=== PATIENT | female | born 2000 | race Caucasian/White ===

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

== ENCOUNTER 2018-07-20 09:41 | Emergency (ER) | payer OTHER ==
--- OUTSIDE RECORDS SUMMARY | 2018-07-20 09:54 | XMS REPORT ---
:2000 External Reference #:[id number] Author Organization [facility] 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 Katia Boyer MD Primary Care Physician Unavailable Payers Type Date Identification Numbers Payment Provider Subscriber Commercial Effective: Policy Number: [place] Medicaid Nasir Quinn 2017 [id number] PayID: [id number] [address] [place] [address] Medicaid Expires: 2018 Policy Number: [id number] Medicaid Nasir Quinn PayID: [id number] [address] [place] [address] Problems Date Description Provider Status Onset: 12/22/2016 Constipation Xander Curran MD Active Onset: 12/22/2016 Abdominal pain Xander Curran MD Active Onset: 12/22/2016 Vomiting, unspecified Xander Curran MD Active Onset: 04/03/2018 Dehydration Xander Curran MD Active Onset: 02/01/2018 Hemorrhage of rectum and anus Xander Curran MD Active Onset: 01/10/2018 Headache Katia Boyer MD Active Onset: 01/10/2018 Symptom of skin and integumentary tissue Katia Boyer MD Active Onset: 11/14/2017 Corns and callosities Katia Boyer MD Active Onset: 11/14/2017 Dissociative convulsions Katia Boyer MD Active Onset: 10/03/2017 Heartburn Xander Curran MD Active Onset: 10/03/2017 Irritable bowel syndrome characterized by Xander Curran MD Active constipation Onset: 04/04/2017 Gastroduodenitis Xander Curran MD Active Family History Date Family Member(s) Problem(s) Comments General Liver Cancer great maternal grandmother Father Seizure Disorder Father Blood Disorder Mother Diabetes Mellitus Type 2 Mother Asthma Mother Kidney Stones First Sister Crohn's Disease Social History Type Date Description Comments Marital Status Single Lives With Mother Home Environment Lives with Mother Occupation [employer] Work Status Not Currently Working Work Status Part-Time ETOH Use Denies alcohol use Smoking Patient denies history of smoking Recreational Drug Use Denies Drug Use Allergies, Adverse Reactions, Alerts Date Description Reaction Status Severity Comments 11/27/2016 Erythromycin active throat swells 11/27/2016 Augmentin active rash 12/22/2016 Bactrim active 12/22/2016 Latex active 12/22/2016 Zithromax active Adhesives active Medications Medication Date Status Form Strength Qnty SIG Indications Ordering Provider Amitriptyline 02/01/ Active Tablets 10mg 90tab 1 tab by R10.9 Young HCL 2017 s mouth every MD Magdy day every night Miralax 02/01/ Active Packet 3350NF 90uni 1 packet by K58.1 2017 ts mouth every MD Magdy day Sleepaid 01/10/ Active Tablets 25mg 1 tab at Merlin, 2018 bedtime MD Katia Bentyl 10/03/ Active Capsules 10mg 90cap cap by mouth R10.9 Young 2018 s three times a MD Magdy day as needed for crampy abd pain Zantac 150 10/03/ Active Tablets 150mg 90tab 1 by mouth R10.9 Young Maximum 2018 s every day MD Magdy Strength Strattera 09/12/ Active Capsules 40mg 60cap 2 caps by Gagen, 2017 s mouth every 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, MS, [employer]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[employer], 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 Fluoxetine HCL 07/06/ Active Capsules 20mg 30cap 1 by mouth Merlin, (PMDD) 2016 s every day MD Katia Miralax 02/21/ Active Powder 3350NF 3Bott 3 cap by Young 2016 les mouth every MD Magdy day every morning Tri-Linyah 12/12/ Active Tablets 0.18/0.21 28tab take as Merlin, 2016 5/0.25 s directed on MD Katia mg-35 mcg pack Colace / Active Capsules 100mg 60cap 2 tab by Merlin, 0000 s mouth daily MD Erin Montalvozessánchez / Active Capsules 145mcg 90cap 1 by mouth Zane 0000 s every day , Meir, every morning Loratadine / Active Tablets 10mg 30tab 1 tab daily Merlin, s MD Katia Ra Senna / Active Tablets 8.6mg 30tab 1 tab as Merlin s needed for MD Katia constipation Tylenol / Active 500mg 2 tab po prn Unknown 0000 Clindamycin HCL 07/31/ Hx Capsules 300mg 30cap 1 tab by Merlin, 2016 s mouth every 8 MD Katia hours for 10 days Clotrimazole 07/06/ Hx Cream 1% 28gm apply to Merlin, Anti-Fungal 2016 affected area MD Katia twice a day Tylenol Extra 07/06/ Hx Tablets 500mg 60tab 1-2 tabs by Merlin, Strength 2016 - mouth every MD Katia 04/03/ hours as 2018 needed Fluoxetine HCL 05/17/ Hx Tablets 10mg 30tab 1 by mouth Merlin, 2016 - s every day MD Katia 2016 Dicyclomine HCL 04/04/ Hx Capsules 10mg 90cap 1 cap by R10Steve Terrell 2016 s mouth three MD Magdy times a day as needed Dulcolax 04/04/ Hx Tablets 5mg 4tabs [address]. Xander [address] DR taken a 8pm MD Magdy the day before the procedure Peg-3350/Electr 04/04/ Hx Solution 236gm 1unit please drink R1Vijay.Bryan camara 2017 Rec s 1/2 evening MD Magdy before and drink 1/2 morning of the procedure (1 cup every 15 minutes) Citroma 04/04/ Hx Solution 1.745GM/3 1bott 1 bottle by Roscoe Terrell 2016 0ML le mouth once MD Fermin Curran 02/12/ Hx Capsules 145mcg 90cap 1 by mouth Xander 2016 s every day MD Magdy Dok 00/00/ Hx Capsules 100mg 2 PO Qam Silvanoafari, 0000 MD Carmel Ranitidine HCL / Hx Tablets 150mg 1 bid Silvanoafari, 0000 MD Carmel Ondansetron HCL / Hx Tablets 4mg 90tab every 8 hours Merlin, 0000 s as needed MD Katia Tylenol PM / Hx Tablets 500-25mg 30tab 1 tab by Merlin, Extra Strength 0000 - s mouth every MD Katia as 2018 needed OCP / Hx Unknown 0000 - 2016 Pantoprazole / Hx Tablets 20mg 1 by mouth Unknown Sodium 0000 DR bid Strattera Hx Capsules 80mg 30cap 1 tab every Merlin, 0000 - s morning MD Katia 2017 Immunizations CPT Code Status Date Vaccine Lot # [id number] Given 07/09/2018 Influenza Virus Vaccine, Quadrivalent, 36 Mos+, [id number] Given 07/06/2017 Influenza Virus Vaccine Quadrivalent Iiv4 Split [id number] Preser Free Id Vital Signs Date Vital Result Comment 07/09/2018 BP Systolic Sitting Left Arm 116 mmHg BP Diastolic Sitting Left Arm 77 mmHg Body Temperature 99.1 F Heart Rate 116 /min Respiratory Rate 20 /min Height 64 inches 5'4" Weight 150.00 lb BMI (Body Mass Index) 25.7 kg/m2 BSA (Body Surface Area) 1.73 m2 [place] body weight in kilograms 54 O2 % BldC Oximetry 99 % 05/17/2018 BP Systolic Sitting Right Arm 119 mmHg BP Diastolic Sitting Right Arm 81 mmHg Body Temperature 97.9 F Heart Rate 100 /min Respiratory Rate 12 /min Height 64 inches 5'4" Weight 149.00 lb BMI (Body Mass Index) 25.6 kg/m2 BSA (Body Surface Area) 1.73 m2 [place] body weight in kilograms 54 O2 % BldC Oximetry 100 % 04/03/2018 BP Systolic Sitting Left Arm 110 mmHg BP Diastolic Sitting Left Arm 80 mmHg Heart Rate 90 /min Respiratory Rate 16 /min Height 64 inches 5'4" Weight 138.00 lb BMI (Body Mass Index) 23.7 kg/m2 BSA (Body Surface Area) 1.67 m2 [place] body weight in kilograms 54 O2 % BldC Oximetry 98 % 02/01/2018 BP Systolic Sitting Left Arm 103 mmHg BP Diastolic Sitting Left Arm 78 mmHg Heart Rate 96 /min Respiratory Rate 18 /min Height 64 inches 5'4" Weight 131.00 lb BMI (Body Mass Index) 22.5 kg/m2 BSA (Body Surface Area) 1.63 m2 [place] body weight in kilograms 54 Height Percentile 45 % Weight Percentile 55th 01/10/2018 BP Systolic Sitting Left Arm 104 mmHg BP Diastolic Sitting Left Arm 72 mmHg Heart Rate 96 /min Respiratory Rate 16 /min Height 64 inches 5'4" Weight 131.00 lb BMI (Body Mass Index) 22.5 kg/m2 BSA (Body Surface Area) 1.63 m2 [place] body weight in kilograms 54 Height Percentile 45 % Weight Percentile 55th 11/14/2017 BP Systolic Sitting Left Arm 113 mmHg BP Diastolic Sitting Left Arm 80 mmHg Heart Rate 101 /min Height 64 inches 5'4" Weight 132.00 lb BMI (Body Mass Index) 22.7 kg/m2 BSA (Body Surface Area) 1.64 m2 [place] body weight in kilograms 54 Height Percentile 45 % Weight Percentile 57th 10/03/2017 BP Systolic Sitting Left Arm 120 mmHg BP Diastolic Sitting Left Arm 70 mmHg Heart Rate 102 /min Respiratory Rate 16 /min Height 64 inches 5'4" Weight 132.00 lb BMI (Body Mass Index) 22.7 kg/m2 BSA (Body Surface Area) 1.64 m2 [place] body weight in kilograms 54 Height Percentile 45 % Weight Percentile 58th 07/31/2017 BP Systolic Sitting Left Arm 120 mmHg BP Diastolic Sitting Left Arm 80 mmHg Body Temperature 98.9 F Heart Rate 90 /min Respiratory Rate 16 /min Height 64 inches 5'4" Weight 137.00 lb BMI (Body Mass Index) 23.5 kg/m2 BSA (Body Surface Area) 1.67 m2 [place] body weight in kilograms 54 Height Percentile 45 % Weight Percentile 66th 07/06/2017 BP Systolic Sitting Right Arm 113 mmHg BP Diastolic Sitting Right Arm 74 mmHg Heart Rate 109 /min Height 64 inches 5'4" Weight 132.00 lb BMI (Body Mass Index) 22.7 kg/m2 BSA (Body Surface Area) 1.64 m2 [place] body weight in kilograms 54 Height Percentile 46 % Weight Percentile 59th 04/04/2017 BP Systolic Sitting Left Arm 118 mmHg BP Diastolic Sitting Left Arm 78 mmHg Heart Rate 89 /min Respiratory Rate 16 /min Height 64 inches 5'4" Weight 136.00 lb BMI (Body Mass Index) 23.3 kg/m2 BSA (Body Surface Area) 1.66 m2 [place] body weight in kilograms 54 12/22/2016 BP Systolic Sitting Left Arm 110 mmHg BP Diastolic Sitting Left Arm 80 mmHg Heart Rate 76 /min Respiratory Rate 16 /min Height 64 inches 5'4" Weight 138.00 lb BMI (Body Mass Index) 23.7 kg/m2 BSA (Body Surface Area) 1.67 m2 [place] body weight in kilograms 54 Height Percentile 46 % Weight Percentile 70th 12/18/2016 BP Systolic 106 mmHg BP Diastolic 73 mmHg Heart Rate 101 /min Height 63.75 inches 5'3.75" Weight 136.00 lb BMI (Body Mass Index) 23.5 kg/m2 BSA (Body Surface Area) 1.66 m2 Height Percentile 42 % Weight Percentile 67th 11/27/2016 BP Systolic 126 mmHg BP Diastolic 88 mmHg Body Temperature 98.2 F Heart Rate 105 /min Height 63.75 inches 5'3.75" Weight 137.00 lb BMI (Body Mass Index) 23.7 kg/m2 BSA (Body Surface Area) 1.66 m2 [place] body weight in kilograms 54 Height Percentile 42 % Weight Percentile 69th Results Test Date Test Result H/L Range Note CBC W/Automated Diff 06/15/2018 White Blood Count 7.1 K/uL 3.1-10.7 1 Red Blood Count 4.28 M/uL 3.90-5.40 1 Hemoglobin 13.1 gm/dL 11.6-15.8 1 Hematocrit 39.2 % 36.0-46.1 1 Mean Cell Volume 91.6 fl 80.9-99.0 1 Mean Corpuscular HGB 30.6 pg 25.9-32.7 1 Mean Corpuscular HGB Conc 33.4 g/dL 30.8-34.3 1 Platelet Count 313 K/uL 155-360 1 Red Cell Distri Width SD 41.9 fl 3-47 1 Red Cell Distri Width %CV 12.8 % 11.7-14.4 1 Mean Platelet Volume 10.0 fL 8.9-12.4 1 Neut% 48.4 % 28.0-68.0 1 Lymph % 42.9 % High 20.0-42.0 1 Floyd % 5.2 % 4.3-13.2 1 Eo% 3.1 % 0.0-6.6 1 Bas% 0.4 % 0.0-1.1 1 Neut# 3.42 K/uL 1.8-7.0 1 Lymph # 3.04 K/uL 1.0-4.0 1 Floyd # 0.37 K/uL 0.3-0.9 1 Eos # 0.22 K/uL 0.0-0.5 1 Baso # 0.03 K/uL 0.0-0.1 1 Ua RFX Micro & Culture II 06/15/2018 Urine Color YELLOW Yellow 1 Urine Clarity CLEAR Clear 1 Urine Glucose - Dipstick NEGATIVE mg/dL Negative 1 Urine Bilirubin - Dipstick NEGATIVE Negative 1 Urine Ketone NEGATIVE mg/dL Negative 1 Urine Specific Griffith >=1.030 1.010-1.030 1 Urine Blood NEGATIVE Negative 1 Urine PH 6.0 Low 6.5-7.5 1 Urine Protein - Dipstick TRACE mg/dL Negative 1 Urine Urobilinogen - Dipstick 0.2 E.U./dL 0.2-1.0 1 Urine Nitrite - Dipstick NEGATIVE Negative 1 Urine Leuk Esterase NEGATIVE Negative 1 Source: URINE, CLEAN CAT <SEE NOTE> 1, 2 CBS W/Automated Diff 04/03/2018 White Blood Count 5.1 K/uL 3.1-10.7 3 Red Blood Count 3.89 M/uL Low 3.90-5.40 3 Hemoglobin 11.6 gm/dL 11.6-15.8 3 Hematocrit 35.6 % Low 36.0-46.1 3 Mean Cell Volume 91.5 fl 80.9-99.0 3 Mean Corpuscular HGB 29.8 pg 25.9-32.7 3 Mean Corpuscular HGB Conc 32.6 g/dL 30.8-34.3 3 Platelet Count 278 K/uL 155-360 3 Red Cell Distri Width SD 42.5 fl 3-47 3 Red Cell Distri Width %CV 13.0 % 11.7-14.4 3 Mean Platelet Volume 10.0 fL 8.9-12.4 3 Neut% 44.3 % 28.0-68.0 3 Lymph % 46.7 % High 20.0-42.0 3 Floyd % 7.6 % 4.3-13.2 3 Eo% 0.6 % 0.0-6.6 3 Bas% 0.8 % 0.0-1.1 3 Neut# 2.28 K/uL 1.8-7.0 3 Lymph # 2.40 K/uL 1.0-4.0 3 Floyd # 0.39 K/uL 0.3-0.9 3 Eos # 0.03 K/uL 0.0-0.5 3 Baso # 0.04 K/uL 0.0-0.1 3 CBS W/Automated Diff 11/23/2017 White Blood Count 6.6 K/uL 3.1-10.7 4 Red Blood Count 4.51 M/uL 3.90-5.40 4 Hemoglobin 13.7 gm/dL 11.6-15.8 4 Hematocrit 40.9 % 36.0-46.1 4 Mean Cell Volume 90.7 fl 80.9-99.0 4 Mean Corpuscular HGB 30.4 pg 25.9-32.7 4 Mean Corpuscular HGB Conc 33.5 g/dL 30.8-34.3 4 Platelet Count 279 K/uL 155-360 4 Red Cell Distri Width SD 44.2 fl 3-47 4 Red Cell Distri Width %CV 13.7 % 11.7-14.4 4 Mean Platelet Volume 10.4 fL 8.9-12.4 4 Neut% 59.5 % 28.0-68.0 4 Lymph % 32.1 % 20.0-42.0 4 Floyd % 7.3 % 4.3-13.2 4 Eo% 0.6 % 0.0-6.6 4 Bas% 0.5 % 0.0-1.1 4 Neut# 3.94 K/uL 1.8-7.0 4 Lymph # 2.12 K/uL 1.0-4.0 4 Floyd # 0.48 K/uL 0.3-0.9 4 Eos # 0.04 K/uL 0.0-0.5 4 Baso # 0.03 K/uL 0.0-0.1 4 Chlamydia/GC Mickie, Urine 11/23/2017 Chlamydia Trachomatis,Ur Negative Negative 4 -PCR Neisseria Gonorrhoeae,Ur -PCR Negative Negative 4, 5 Ua RFX Micro & Culture II 11/23/2017 Urine Color YELLOW Yellow 4 Urine Clarity CLEAR Clear 4 Urine Glucose - Dipstick NEGATIVE mg/dL Negative 4 Urine Bilirubin - Dipstick NEGATIVE Negative 4 Urine Ketone NEGATIVE mg/dL Negative 4 Urine Specific Griffith <=1.005 Low 1.010-1.030 4 Urine Blood NEGATIVE Negative 4 Urine PH 6.0 Low 6.5-7.5 4 Urine Protein - Dipstick NEGATIVE mg/dL Negative 4 Urine Urobilinogen - Dipstick 0.2 E.U./dL 0.2-1.0 4 Urine Nitrite - Dipstick NEGATIVE Negative 4 Urine Leuk Esterase NEGATIVE Negative 4 Source: URINE, CLEAN CAT <SEE NOTE> 4, 6 Ua Routine 05/03/2017 Urine Color YELLOW Yellow 7 Urine Clarity CLEAR Clear 7 Urine Glucose - Dipstick NEGATIVE mg/dL Negative 7 Urine Bilirubin - Dipstick NEGATIVE Negative 7 Urine Ketone NEGATIVE mg/dL Negative 7 Urine Specific Griffith 1.010 1.010-1.030 7 Urine Blood SMALL Negative 7 Urine PH 6.5 6.5-7.5 7 Urine Protein - Dipstick NEGATIVE mg/dL Negative 7 Urine Urobilinogen - Dipstick 0.2 E.U./dL 0.2-1.0 7 Urine Nitrite - Dipstick NEGATIVE Negative 7 Urine Leuk Esterase TRACE Negative 7 Urine RBC NONE SEEN rbc/hpf 0-2 7 Urine WBC 0-2 wbc/hpf 0-7 7 Urine Epithelial Cells FEW /lpf None Seen 7 Urine Bacteria NONE SEEN None Seen 7 Source: URINE, CLEAN CAT <SEE NOTE> 7, 8 Chlamydia/GC Mickie, Urine 05/03/2017 Chlamydia Trachomatis,Ur Negative Negative 7 -Mickie Neisseria Gonorrhoeae,Ur -Mickie Negative Negative 7, 9 CBS W/Automated Diff 05/03/2017 White Blood Count 6.8 K/uL 3.1-10.7 7 Red Blood Count 4.17 M/uL 3.90-5.40 7 Hemoglobin 12.8 gm/dL 11.6-15.8 7 Hematocrit 37.5 % 36.0-46.1 7 Mean Cell Volume 89.9 fl 80.9-99.0 7 Mean Corpuscular HGB 30.7 pg 25.9-32.7 7 Mean Corpuscular HGB Conc 34.1 g/dL 30.8-34.3 7 Platelet Count 290 K/uL 150-400 7 Red Cell Distri Width SD 40.9 fl 3-47 7 Red Cell Distri Width %CV 12.8 % 11.7-14.4 7 Mean Platelet Volume 10.6 fL 8.9-12.4 7 Neut% 61.2 % 28.0-68.0 7 Lymph % 30.9 % 20.0-42.0 7 Floyd % 6.0 % 4.3-13.2 7 Eo% 1.3 % 0.0-6.6 7 Bas% 0.6 % 0.0-1.1 7 Neut# 4.18 K/uL 1.8-7.0 7 Lymph # 2.11 K/uL 1.0-4.0 7 Floyd # 0.41 K/uL 0.3-0.9 7 Eos # 0.09 K/uL 0.0-0.5 7 Baso # 0.04 K/uL 0.0-0.1 7 Laboratory test 05/01/2017 Urine HCG (Qualitative) NEGATIVE Negative 10 , 11 finding Celiac Disease Comp 12/25/2016 Immunoglobulin A 348 mg/dL 87-352 12 PNL Antigliadin Abs, IgG 2 units 0-19 12, 13 Antigliadin Abs, IgA 6 units 0-19 12, 14 Endomysial IgA Antibody Negative Negative 12 t-Transglutaminase IgA <2 U/mL 0-3 12, 15 t-Transglutaminase IgG <2 U/mL 0-5 12, 16 TSH W/Free T4 RFX 12/25/2016 Thyroid Stim Hormone 1.39 uIU/mL 0.30-4.20 12 Reflex add FT3? Y 12 Reflex add FT4? Y 12 Laboratory test finding 12/25/2016 C1 Esterase Inhibitor 70 %meanno . 12 , 17 Function C1 Esterase Inhibitor 25 mg/dL 21-39 12 Complement C4, Serum 31 mg/dL 14-44 12 Laboratory test finding 12/25/2016 Sedimentation Rate 13 mm/hr 0-20 12, 18 CRP (High Sensitivity) 12/25/2016 C-Reactive Protein,Cardiac 0.87 mg/L < 3.0 12 Reflex add FT3? Y 12 Reflex add FT4? Y 12 Laboratory test 12/23/2016 Porphobilinogen,QN,Random Urin 0.0 mg/L 0.0- 2.0 19, 20 finding Vitamin B12 And 11/27/2016 Vitamin B12 363 pg/mL 193-986 21 Folate Folic Acid 32.3 ng/mL High 3.1-17.5 21, 22 Laboratory test finding 11/27/2016 HCG,Serum (Qualitative) NEGATIVE ( Negative) 21 Ua Routine 11/27/2016 Urine Color YELLOW Yellow 21 Urine Clarity CLEAR Clear 21 Urine Glucose - Dipstick NEGATIVE mg/dL Negative 21 Urine Bilirubin - Dipstick NEGATIVE Negative 21 Urine Ketone NEGATIVE mg/dL Negative 21 Urine Specific Griffith <=1.005 Low 1.010-1.030 21 Urine Blood TRACE Negative 21 Urine PH 6.0 Low 6.5-7.5 21 Urine Protein - Dipstick NEGATIVE mg/dL Negative 21 Urine Urobilinogen - Dipstick 0.2 E.U./dL 0.2-1.0 21 Urine Nitrite - Dipstick NEGATIVE Negative 21 Urine Leuk Esterase TRACE Negative 21 Urine RBC 0-2 rbc/hpf 0-2 21 Urine WBC 0-2 wbc/hpf 0-7 21 Urine Epithelial Cells FEW /lpf None Seen 21 Urine Bacteria FEW None Seen 21 Urine Amorph Sediment VERY FEW Negative 21 Source: URINE, CLEAN CAT <SEE NOTE> 21, 23 Drugs Of Abuse-Urine Screen 7 11/27/2016 Amphetamines (Urine) Negative 21 Barbiturates (Urine) Negative 21 Benzodiazepines (Urine) Negative 21 Cannabinoids (Urine) Negative 21 Cocaine Metabolite (Urine) Negative 21 Methadone (Urine) Negative 21 Opiates (Urine) Negative 21 Urine Cutoffs * 21, 24 Laboratory test finding 11/27/2016 Magnesium 2.4 mg/dL 1.8-2.4 21 Glycohemoglobin A1c 11/27/2016 Glycohemoglobin (A1c) 5.0 % 4.2-6.3 21, 25 eAG 97 mg/dL 21 Laboratory test finding 11/27/2016 Thyroid Stim Hormone 2.21 uIU/mL 0.30- 4.20 21 Free T4 0.88 ng/dL 0.76-1.46 21 CBS W/Automated Diff 11/27/2016 White Blood Count 5.4 K/uL 3.1-10.7 21 Red Blood Count 4.65 M/uL 3.90-5.40 21 Hemoglobin 13.7 gm/dL 11.6-15.8 21 Hematocrit 41.4 % 36.0-46.1 21 Mean Cell Volume 89.0 fl 80.9-99.0 21 Mean Corpuscular HGB 29.5 pg 25.9-32.7 21 Mean Corpuscular HGB Conc 33.1 g/dL 30.8-34.3 21 Platelet Count 343 K/uL 150-400 21 Red Cell Distri Width SD 40.8 fl 3-47 21 Red Cell Distri Width %CV 12.7 % 11.7-14.4 21 Mean Platelet Volume 11.1 fL 8.9-12.4 21 Neut% 48.5 % 28.0-68.0 21 Lymph % 42.8 % High 20.0-42.0 21 Floyd % 7.2 % 4.3-13.2 21 Eo% 0.9 % 0.0-6.6 21 Bas% 0.6 % 0.0-1.1 21 Neut# 2.61 K/uL 1.8-7.0 21 Lymph # 2.30 K/uL 1.0-4.0 21 Floyd # 0.39 K/uL 0.3-0.9 21 Eos # 0.05 K/uL 0.0-0.5 21 Baso # 0.03 K/uL 0.0-0.1 21 Comprehensive Metabolic Panel 11/27/2016 Glucose 83 mg/dL 74-106 21 BUN 10 mg/dL 7-18 21 Creatinine 0.7 mg/dL 0.6-1.3 21 Glom Filtration Rate, Estimate >60 mL/min >60 21 If >60 mL/min >60 21, 26 BUN/Creat 14.2 ratio 21 Sodium 140 mmol/L 136-145 21 Potassium 4.2 mmol/L 3.5-5.1 21 Chloride 106 mmol/L 98-107 21 Carbon Dioxide 25 mmol/L 21-32 21 Anion Gap 9 mEq/L 8-16 21 Calcium 9.3 mg/dL 8.5-10.1 21 Total Protein 8.3 g/dL High 6.4-8.2 21 Albumin 4.0 g/dL 3.4-5.0 21 Globulin 4.3 g/dL 1.9-4.3 21 Alb/Glob 0.9 ratio 21 Bilirubin,Total 0.2 mg/dL 0.2-1.0 21 Sgot/Ast 22 U/L 15-37 21 SGPT/Alt 25 U/L 12-78 21 Alkaline Phosphatase 82 U/L 45-117 21 1 IBS, CONSTIPATION, ABD PAIN 2 URINE, CLEAN CATCH 3 SENT BY , DEHYDRATION, ANOREXIA 4 IBS SHAKING EPISODE, URI 5 A negative result for either C. trachomatis and/or N. gonorrhoeae does not preclued an infection because results are dependent on adequate specimen collection, absence of inhibitors, and sufficient DNA to be detected. 6 URINE, CLEAN CATCH 7 HAD COLONOSCOPY 05/01, VERY LETHARGIC,LEFT ABD PAIN 8 URINE, CLEAN CATCH 9 A negative result for either C. trachomatis and/or N. gonorrhoeae does not preclued an infection because results are dependent on adequate specimen collection, absence of inhibitors, and sufficient DNA to be detected. 10 COLONOSCOPY RESCHEDULED 11 FIRST MORNING SPECIMENS GENERALLY CONTAIN THE HIGHEST CONCENTRATION OF HCG AND ARE RECOMMENDED FOR EARLY DETECTION OF . Method: Quidel QuickVue One-Step Immunoassay 12 K59.00 R10.9 13 Negative 0 - 19 Weak Positive 20 - 30 Moderate to Strong Positive >30 14 Negative 0 - 19 Weak Positive 20 - 30 Moderate to Strong Positive >30 15 Negative 0 - 3 Weak Positive 4 - 10 Positive >10 Tissue Transglutaminase (tTG) has been identified as the endomysial antigen. Studies have demonstr- ated that endomysial IgA antibodies have over 99% specificity for gluten sensitive enteropathy. 16 Negative 0 - 5 Weak Positive 6 - 9 Positive >9 17 INFCE Result Units: %mean normal Abnormal <41 Equivocal 41 - 67 Normal >67 Performed at: [address] [id number] Technical Support Director: Jaci Wood MD, Phone: [phone] Performed at: [address] [id number] Technical Support Director: Red Fernández MD, Phone: [phone] 18 Method: Sediplast Modified Westergren 19 E59.00 R10.9 20 This test was developed and its performance characteristics determined by [facility]. It has not been cleared or approved by the Food and Drug Administration. Performed at: [address] [id number] Technical Support Director: Red Fernández MD, Phone: [phone] 21 R11.10 R10.9 22 Result confirmed by repeat analysis. 23 URINE, CLEAN CATCH 24 URINE SPECIMENS ARE SCREENED AT THE LISTED CUTOFFS DRUG CLASS INITIAL TEST LEVEL Amphetamines 1000 ng/mL Barbiturates 200 ng/mL Benzodiazepines 200 ng/mL Cannabinoids 50 ng/mL Cocaine Metabolite 300 ng/mL Methadone 300 ng/mL Opiates 300 ng/mL Any PRESUMPTIVE POSITIVE findings are UNCONFIRMED. Confirmatory testing is suggested if findings are unexpected. Please contact laboratory if confirmatory testing is desired. SPECIMENS ARE HELD FOR 72 HOURS. 25 Elevated levels of HbA1c suggest the need for more aggressive treatment of glycemia. The [place] [employer] recommends that a primary goal of therapy should be a HbA1c of <7% and that physicians should re-evaluate the treatment regimen in patients with HbA1c values consistently >8%. 26 Note: Persistent reduction for 3 months or more in an eGFR <60 mL/min/1.73 m2 defines CKD. Patients with eGFR values >/=60 mL/min/1.73 m2 may also have CKD if evidence of persistent proteinuria is present. The original MDRD equation for estimated GFR is not valid for patients less than 18 years of age. Additional information may be found at www.kdoqi.org. 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 R19.7 Z23 Office Visit 05/17/2018 9:30a [place], [address] R19.7 [employer]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C, CNM F34.81 E86.0 Office Visit 04/03/2018 9:15[place] [address] E86.0 K58.1 R10.9 R12 Office Visit 02/01/2018 9:45[place] [address] K58.1 R10.9 R12 K62.5 Office Visit 01/10/2018 12:00p [place] [address] R23.9 K58.1 R51 Office Visit 11/14/2017 11:40a [place] [address] K58.1 F44.5 L84 Office Visit 10/03/2017 9:45[place] [address] K58.1 R10.9 R12 Office Visit 07/31/2017 10:40a [place] [address] H66.91 Office Visit 07/06/2017 2:40p [place] [address] K59.00 F34.81 Z23 B35.4 Office Visit 04/04/2017 3:30[place] [address] R10.9 K59.00 K29.70 Office Visit 12/22/2016 2:45[place] [address] K59.00 R11.10 R10.9 Office Visit 12/18/2016 10:40a [place] [address] F44.5 R10.11 R11.10 K59.00 Office Visit 11/27/2016 1:20p [place] [address] F44.5 R10.11 R11.10 Plan of Care Future Appointment(s):07/24/2018 9:00 am - Angelina Chawla MS, ARNOLD, CAITLIN at Primary Care Kfznek2908/13/2018 10:45 am - Meir Degroot MD at GI09/17/2018 10:30 am - Angelina Chawla MS, ARNOLD, BJM at Primary Care Jjlnof6407/09/2018 - Angelina Chawla MS, ARNOLD, CNMK92.1 MelenaComments:-- Hemoccult done - [id number] Diarrhea, unspecifiedComments:--Stop the Linzess, take 1/2 dose of the Miralax, stop colace. I explained that we may have to adjust medications to get formed stools; however, I do not want her to get constipated due to her - -Encourage liquids, especially Gatorade--Diet increase fiber bananas, oatmeal, whole wheat bread, brown rice--Keep GI OV with DR Degroot --On last OV, I discussed the importance of hydration and not taking so many stool medications to develop diarrhea. I reinforced this again, discussing possible dehydration and electrolyte imbalance.--I advised Patient to use baby wipes and Desitin in rectal area to avoidskin break down-- Patient is to monitor response of medication change and [id number] Encounter for immunizationComments:-- Patient received Flu vaccination after consentAllFollow up:RTO in 2 weeks for F/U Keep GI OV in August
[2018-07-20 10:27] VITALS: BP 120/70
--- NOTE | 2018-07-20 11:02 | UC ---
General HPI - HPI Summary HPI Summary: 18 yo without PMH with Sore throat, nasal discharge and congestion, and itchy rash since yesterday, startin on neck and shoulders and spreading this morning to the rest of body. Palms and soles spared. Aurora feverish/chills but no quantified fever. No meds taken. - History of Current Complaint Chief Complaint: UCSkin Stated Complaint: RASH Time Seen by Provider: 07/20/18 10:48 Hx Obtained From: Patient Hx Last Menstrual Period: "end of last month" Onset/Duration: Sudden Onset, Lasting Days Onset Severity: Mild Pain Intensity: 5 - Allergy/Home Medications Allergies/Adverse Reactions: Allergies Allergy/AdvReac Type Severity Reaction Status Date / Time amoxicillin Allergy Rash Verified 07/20/18 10:21 azithromycin Allergy Rash Verified 07/20/18 10:21 bacitracin Allergy Rash Verified 07/20/18 10:21 erythromycin base Allergy Difficulty Verified 07/20/18 10:21 Breathing PMH/Surg Hx/FS Hx/Imm Hx Previously Healthy: Yes - Surgical History Surgical History: Yes Surgery Procedure, Year, and Place: WISDOM TEETH EXTRACTION - Family History Known Family History: Positive: None, Other - No throat related family history. - Social History Alcohol Use: None Substance Use Type: None Smoking Status (MU): Never Smoked Tobacco Household Exposure Type: Cigarettes - Immunization History Most Recent Tetanus Shot: UTD Vaccination Up to Date: Yes Review of Systems All Other Systems Reviewed And Are Negative: Yes Skin: Positive: Rash ENT: Positive: Sore Throat, Nasal Discharge, Sinus Congestion Respiratory: Positive: Cough Physical Exam - Summary Physical Exam Summary: polymorphic blanching rash on neck, inferior eyelids, trunk and extremities with escoriation nguyen. No herald patch found. No involvement of soles and palms. Triage Information Reviewed: Yes Appearance: Well-Appearing, No Pain Distress, Well-Nourished Vital Signs: Initial Vital Signs Temp 97.7 F 07/20/18 10:23 Pulse 101 07/20/18 10:23 Resp 15 07/20/18 10:23 BP 120/70 07/20/18 10:23 Pulse Ox 99 07/20/18 10:23 Vital Signs Reviewed: Yes Eyes: Positive: Conjunctiva Clear ENT: Positive: Hearing grossly normal, Pharynx normal, TMs normal Neck: Positive: Supple, Nontender Respiratory: Positive: Chest non-tender, Lungs clear, Normal breath sounds, No respiratory distress Cardiovascular: Positive: RRR, No Murmur, Pulses Normal, Brisk Capillary Refill Abdomen Description: Positive: Nontender Bowel Sounds: Positive: Present Musculoskeletal: Positive: Strength Intact, ROM Intact Course/Dx - Course Course Of Treatment: patient found to have urticarial rash, start short course of prednisone QAM as prescribed, moisturizer on skin. URI continue supportive care and oral hydration, f/u PCP in 1 week - Differential Dx - Multi-Symptom Provider Diagnoses: urticaria. Viral URI Discharge - Sign-Out/Discharge Documenting (check all that apply): Patient Departure All imaging exams completed and their final reports reviewed: No Studies - Discharge Plan Condition: Stable Disposition: HOME Patient Education Materials: Urticaria (ED) Referrals: Katia Boyer MD [Primary Care Provider] - - Billing Disposition and Condition Condition: STABLE Disposition: Home
== END 2018-07-20 11:09 | disposition home or self-care (01) ==
LOC: UCCORT 09:41
DX: J06.9 Acute upper respiratory infection, unspecified (principal); L50.9 Urticaria, unspecified; Z88.0 Allergy status to penicillin
CPT/HCPCS: 87651; 99212; G0463

== ENCOUNTER 2018-12-02 11:51 | Emergency (ER) | payer OTHER ==
[2018-12-02 12:27] VITALS: BP 118/64
[2018-12-02] MEDS ORDERED: Tetracaine 0.5% OPTH.SOL 4 ML* 1 DROP BTL RIGHT EYE ONE (14:10)
[2018-12-02] MEDS ORDERED: Fluorescein Sodium TOPICAL* 1 MG TEST STRIP OPHTHALMIC ONE (14:10)
--- NOTE | 2018-12-02 14:11 | UC ---
Eye Complaint HPI - HPI Summary HPI Summary: Pt states she has right eye pain, but after several discussions with her, it is not the globe of her right eye, it is more the right upper orbit and just below right lower eyelid. She does not wear contact lenses, nor has she felt she has anything in her eye. She has had URI symptoms with nasal drainage over the past 3 days which is when this started. Denies seasonal allergies. - History of Current Complaint Chief Complaint: UCHeadache Stated Complaint: RIGHT EYE COMPLAINT Time Seen by Provider: 12/02/18 13:54 Hx Obtained From: Patient Hx Last Menstrual Period: "last month" ?: No Onset/Duration: Gradual Onset Severity Initially: Moderate Severity Currently: Mild Pain Intensity: 7 Location of Injury: Other - No injury Character: Sharp - Sharp pain around upper right orbit and lower right eyelid Aggravating Factor(s): Light - She states she is a little sensitive to light. Occasionally she feels like her vision in the right eye is blurry. Alleviating Factor(s): Nothing Associated Signs And Symptoms: Negative: Drainage (Clear), Drainage (Purulent), Vision Impairment Bilateral, Fever, Swelling - Risk Factors Penetrating Injury Risk Factor: Negative Globe Rupture Risk Factors: Negative Acute Glaucoma Risk Factors: Negative - Allergies/Home Medications Allergies/Adverse Reactions: Allergies Allergy/AdvReac Type Severity Reaction Status Date / Time amoxicillin Allergy Rash Verified 12/02/18 12:18 azithromycin Allergy Rash Verified 12/02/18 12:18 bacitracin Allergy Rash Verified 12/02/18 12:18 erythromycin base Allergy Difficulty Verified 12/02/18 12:18 Breathing Home Medications: Home Medications Acetaminophen [Acetaminophen Extra Strength] 1,000 mg PO Q6H PRN 12/02/18 [ History Confirmed 12/02/18] Amitriptyline TAB* [Elavil TAB*] 10 mg PO BEDTIME 12/02/18 [History Confirmed ] Dicyclomine CAP* [Bentyl CAP*] 10 mg PO TID PRN 12/02/18 [History Confirmed ] Docusate CAP* [Colace Cap*] 200 mg PO DAILY 12/02/18 [History Confirmed 12/02/18 ] FLUoxetine CAP* [PROzac CAP*] 20 mg PO DAILY 12/02/18 [History Confirmed ] Fexofenadine (NF) [Sara 180 (NF)] 180 mg PO DAILY 12/02/18 [History Confirmed 12/02/18] Lactulose [Kristalose] 20 gm PO BID 12/02/18 [History Confirmed 12/02/18] Linaclotide (NF) [Linzess (NF)] 145 mcg PO QAM 12/02/18 [History Confirmed 12/02] Norgestimate-Ethinyl Estradiol [Tri-Linyah] 1 tab PO DAILY 12/02/18 [History Confirmed 12/02/18] Polyethylene Glycol 3350* [Miralax*] 17 gm PO DAILY 12/02/18 [History Confirmed 12/02/18] Senna TAB* [Senokot TAB*] 1 tab PO SEE INSTRUCTIONS PRN 12/02/18 [History Confirmed 12/02/18] Simethicone TAB* [Mylicon TAB*] 80 mg PO Q6H PRN 12/02/18 [History Confirmed ] diPHENhydraMINE PO* [Benadryl PO 25 MG TAB*] 25 mg PO BEDTIME 12/02/18 [History Confirmed 12/02/18] PMH/Surg Hx/FS Hx/Imm Hx Previously Healthy: Yes - Surgical History Surgical History: Yes Surgery Procedure, Year, and Place: Colonoscopy, Endoscopy, [place] Teeth Extracted - Family History Known Family History: Positive: None, Other - No throat related family history. - Social History Alcohol Use: None Substance Use Type: None Smoking Status (MU): Never Smoked Tobacco Household Exposure Type: Cigarettes - Immunization History Most Recent Tetanus Shot: UTD Vaccination Up to Date: Yes Review of Systems All Other Systems Reviewed And Are Negative: Yes Eyes: Positive: Blurred Vision - States vision in right eye eye is occasionally blurry but she denies loss of vision or black curtain or loos of visual field, Other - PERRLA, EOMI ENT: Positive: Nasal Discharge, Sinus Congestion Respiratory: Positive: Negative Cardiovascular: Positive: Negative Gastrointestinal: Positive: Negative Motor: Positive: Negative Neurovascular: Positive: Negative Musculoskeletal: Positive: Negative Neurological: Positive: Negative Psychological: Positive: Negative Physical Exam Triage Information Reviewed: Yes Appearance: Well-Appearing, No Pain Distress, Well-Nourished Vital Signs: Initial Vital Signs Temp 98.2 F 12/02/18 12:14 Pulse 100 12/02/18 12:14 Resp 20 12/02/18 12:14 BP 118/64 12/02/18 12:14 Pulse Ox 100 12/02/18 12:14 Vital Signs Reviewed: Yes Eyes: Positive: Conjunctiva Clear, Other: - PERRLA, EOMI, globe intact and non- tender on palpation. Negative: Conjunctiva Inflamed, Discharge ENT: Positive: Normal ENT inspection, Hearing grossly normal, Pharynx normal, Nasal congestion, TMs normal, Uvula midline Neck exam: Normal Neck: Positive: Supple, Nontender, No Lymphadenopathy Respiratory Exam: Normal Cardiovascular Exam: Normal Musculoskeletal Exam: Normal Musculoskeletal: Positive: Strength Intact, ROM Intact, Other: - Pt has discomfort on palpation right upper orbit and left lower eyelid. No erythema, bruising, swelling or other abnormality Neurological Exam: Normal Neurological: Positive: Alert, Muscle Tone Normal - CN II-XII intact. Psychological Exam: Normal Skin Exam: Normal Eye Complaint Course/Dx - Course Course Of Treatment: Comfrotable here, Tetracaine was instilled in right eye, No FB seen, fluoriscein instilled and no corneal abrasions seen. I do not feel this is an eye / globe problem as much as possible symptoms associated with her URI. I advised Flonase, 2 sprays in each nostril daily for one week with a definite follow up tomorrow with the eye doctor or her PCP for a definite recheck. Pt is agreeable to this. If any changes in vision to go to the ER. - Differential Dx/Diagnosis Differential Diagnosis/HQI/PQRI: Other Provider Diagnosis: Pain of right orbit Discharge - Sign-Out/Discharge Documenting (check all that apply): Patient Departure All imaging exams completed and their final reports reviewed: No Studies - Discharge Plan Condition: Good Disposition: HOME Prescriptions: Fluticasone NASAL SPRAY 50MCG* [Flonase NASAL SPRAY 50MCG*] 2 spray BOTH NARES DAILY 7 Days #1 btl Patient Education Materials: Allergic Rhinitis (DC) Referrals: Katia Boyer MD [Primary Care Provider] - Additional Instructions: 2 sprays of the Flonase in each nostril once a day over the next week and then may decrease to 1 spray in each nostril for 1 more week. If you start experiencing worsening of symptoms you need to follow up with your primary care provider or an pharmacy sales representative. I do not feel the symptoms are related to your eye as opposed to a viral upper respiratory illness which is causing some orbital pain. [phone] Freedman...there is also Me[facility] Joseph on [address] in [place] [phone] - Billing Disposition and Condition Condition: GOOD Disposition: Home
== END 2018-12-02 14:37 | disposition home or self-care (01) ==
LOC: UCCORT 11:51
DX: H57.11 Ocular pain, right eye (principal); R09.89 Other specified symptoms and signs involving the circulatory and respiratory systems; Z88.0 Allergy status to penicillin; Z88.1 Allergy status to other antibiotic agents
CPT/HCPCS: 99212; A9270-GY; G0463

== ENCOUNTER 2018-12-08 09:56 | Emergency (ER) | payer OTHER ==
[2018-12-08 10:14] VITALS: BP 116/68
--- NOTE | 2018-12-08 11:05 | UC ---
Hand/Wrist HPI - HPI Summary HPI Summary: Pt c/o sudden onset right hand pain s/p falling down stairs from standing height last evening. Pt fell down 1-2 stairs and hit "back of Hand" . No c/o swelling and tenderness on doral aspect of right hand at base of third finger. - History Of Current Complaint Chief Complaint: UCUpperExtremity Stated Complaint: SP FALL-RT HAND INJURY Time Seen by Provider: 12/08/18 10:37 Hx Obtained From: Patient Hx Last Menstrual Period: UNSURE ?: No Onset/Duration: Sudden Onset, Still Present Severity Initially: Moderate Severity Currently: Mild Pain Intensity: 3 Character Of Pain: Dull, Aching, Stiffness Aggravating Factor(s): Movement Alleviating Factor(s): Nothing Associated Signs And Symptoms: Positive: Swelling, Bruising Related History: Dominant Hand Right - Risk Factors Compartment Syndrome Risk Factors: Pain - Allergies/Home Medications Allergies/Adverse Reactions: Allergies Allergy/AdvReac Type Severity Reaction Status Date / Time amoxicillin Allergy Rash Verified 12/02/18 12:18 azithromycin Allergy Rash Verified 12/02/18 12:18 bacitracin Allergy Rash Verified 12/02/18 12:18 erythromycin base Allergy Difficulty Verified 12/02/18 12:18 Breathing PMH/Surg Hx/FS Hx/Imm Hx Previously Healthy: Yes - Surgical History Surgical History: Yes Surgery Procedure, Year, and Place: Colonoscopy, Endoscopy, [place] Teeth Extracted - Family History Known Family History: Positive: None, Other - No throat related family history. - Social History Occupation: Employed Full-time Lives: With Family Alcohol Use: None Substance Use Type: None Smoking Status (MU): Never Smoked Tobacco Have You Smoked in the Last Year: No Household Exposure Type: Cigarettes - Immunization History Most Recent Tetanus Shot: UTD Vaccination Up to Date: Yes Review of Systems All Other Systems Reviewed And Are Negative: Yes Constitutional: Positive: Negative Skin: Positive: Bruising - right hand dorsal aspect base of third finger Eyes: Positive: Negative, Diplopia Respiratory: Positive: Negative Cardiovascular: Positive: Negative Gastrointestinal: Positive: Negative Genitourinary: Positive: Negative Motor: Positive: Decreased ROM - right hand, 3rda nd 4th fingers anitra with movement Musculoskeletal: Positive: Arthralgia, Decreased ROM, Edema, Myalgia Neurological: Positive: Negative Psychological: Positive: Negative Is Patient Immunocompromised?: No Physical Exam Triage Information Reviewed: Yes Appearance: Well-Appearing Vital Signs: Initial Vital Signs Temp 98.3 F 12/08/18 10:08 Pulse 92 12/08/18 10:08 Resp 16 12/08/18 10:08 BP 116/68 12/08/18 10:08 Pulse Ox 99 12/08/18 10:08 Vital Signs Reviewed: Yes Eye Exam: Normal ENT Exam: Normal Dental Exam: Normal Neck exam: Normal Respiratory: Positive: No respiratory distress Musculoskeletal Exam: Normal Musculoskeletal: Positive: Strength Limited @, ROM Limited @, Edema @ Neurological Exam: Normal Psychological Exam: Normal Skin Exam: Normal, Other - bruising, milde swelling at at 3rda nd 4th metaphalangeal joint Diagnostics - Radiology No standard instances Radiology Interpretation Completed By: Radiologist - REPORT AND IMPRESSION: #. Soft tissue swelling over the dorsum of the hand at the level of the metacarpals and metacarpal phalangeal joints. Negative for fracture or malalignment. Hand/Wrist Course/Dx - Differential Dx/Diagnosis Differential Diagnosis/HQI/PQRI: Contusion, Fracture, Sprain, Strain Provider Diagnosis: Contusion of right hand Discharge - Sign-Out/Discharge Documenting (check all that apply): Patient Departure All imaging exams completed and their final reports reviewed: Yes - Discharge Plan Condition: Stable Disposition: HOME Patient Education Materials: Contusion in Adults (ED), R.I.C.E. Treatment (ED) , Safe Use of NSAIDs (ED) Referrals: Daron Sy MD [Medical Doctor] - If Needed Katia Boyer MD [Primary Care Provider] - If Needed - Billing Disposition and Condition Condition: STABLE Disposition: Home
== END 2018-12-08 11:22 | disposition home or self-care (01) ==
LOC: UCCORT 09:56
DX: S60.221A Contusion of right hand, initial encounter (principal); Z88.1 Allergy status to other antibiotic agents; Z88.0 Allergy status to penicillin; W10.9XXA Fall (on) (from) unspecified stairs and steps, initial encounter; Y92.9 Unspecified place or not applicable
CPT/HCPCS: 99212; G0463

== ENCOUNTER 2019-01-13 13:15 | Emergency (ER) | payer BC, OTHER ==
[2019-01-13 13:58] VITALS: BP 106/60
--- NOTE | 2019-01-13 14:55 | UC ---
Skin Complaint HPI - HPI Summary HPI Summary: Pt c/o sudden onset of painful, itchy rash under right breast. Pt denies recent illness or contact with known irritant. - History of Current Complaint Chief Complaint: UCRash Time Seen by Provider: 01/13/19 14:09 Stated Complaint: SKIN CONCERN Hx Obtained From: Patient Hx Last Menstrual Period: 12/2018 ?: No Onset/Duration: Sudden Onset, Lasting Hours, Still Present Skin Exposure Onset/Duration: Hours Ago Timing: Constant Onset Severity: Mild Current Severity: Severe Pain Intensity: 10 Pain Scale Used: 0-10 Numeric Location: Discrete - anterior right breast Character: Pruritus, Redness, Painful Aggravating Factor(s): Touch Alleviating Factor(s): Nothing Associated Signs & Symptoms: Positive: Rash - Allergy/Home Medications Allergies/Adverse Reactions: Allergies Allergy/AdvReac Type Severity Reaction Status Date / Time amoxicillin Allergy Rash Verified 01/13/19 13:52 azithromycin Allergy Rash Verified 01/13/19 13:52 bacitracin Allergy Rash Verified 01/13/19 13:52 erythromycin base Allergy Difficulty Verified 01/13/19 13:52 Breathing PMH/Surg Hx/FS Hx/Imm Hx Previously Healthy: Yes - Surgical History Surgical History: Yes Surgery Procedure, Year, and Place: Colonoscopy, Endoscopy, [place] Teeth Extracted - Family History Known Family History: Positive: Cardiac Disease, Other - No throat related family history. - Social History Occupation: Employed Full-time Lives: With Family Alcohol Use: None Substance Use Type: None Smoking Status (MU): Never Smoked Tobacco Have You Smoked in the Last Year: No Household Exposure Type: Cigarettes - Immunization History Most Recent Tetanus Shot: UTD Vaccination Up to Date: Yes Review of Systems All Other Systems Reviewed And Are Negative: Yes Constitutional: Positive: Negative Skin: Positive: Rash Eyes: Positive: Negative ENT: Positive: Negative Respiratory: Positive: Negative Cardiovascular: Positive: Negative Gastrointestinal: Positive: Negative Genitourinary: Positive: Negative Motor: Positive: Negative Neurovascular: Positive: Negative Musculoskeletal: Positive: Negative Neurological: Positive: Negative Psychological: Positive: Negative Is Patient Immunocompromised?: No Physical Exam Triage Information Reviewed: Yes Appearance: Well-Appearing Vital Signs: Initial Vital Signs Temp 98.1 F 01/13/19 13:54 Pulse 88 01/13/19 13:54 Resp 16 01/13/19 13:54 BP 106/60 01/13/19 13:54 Pulse Ox 100 01/13/19 13:54 Vital Signs Reviewed: Yes Eye Exam: Normal ENT Exam: Normal Dental Exam: Normal Neck exam: Normal Respiratory: Positive: No respiratory distress Musculoskeletal Exam: Normal Neurological Exam: Normal Psychological Exam: Normal Skin: Positive: Rashes - under right brest, erythematous, peeling, shiny, with white creamy Course/Dx - Differential Diagnoses - Skin Complaint Differential Diagnoses: Tinea - Diagnoses Provider Diagnosis: Tinea Discharge - Sign-Out/Discharge Documenting (check all that apply): Patient Departure All imaging exams completed and their final reports reviewed: No Studies - Discharge Plan Condition: Stable Disposition: HOME Prescriptions: Fluconazole 150 MG TAB* [Diflucan 150 MG TAB*] 150 mg PO DAILY #2 tablet Terbinafine HCl [Antifungal] 15 gm TP Q12H #1 tube Patient Education Materials: Skin Yeast Infection (ED) Referrals: Katia Boyer MD [Primary Care Provider] - If Needed - Billing Disposition and Condition Condition: STABLE Disposition: Home
== END 2019-01-13 14:30 | disposition home or self-care (01) ==
LOC: UCCORT 13:15
DX: B35.9 Dermatophytosis, unspecified (principal); Z88.0 Allergy status to penicillin; Z88.1 Allergy status to other antibiotic agents
CPT/HCPCS: 99212; G0463

== ENCOUNTER 2019-03-07 09:58 | Emergency (ER) | payer MEDICAID, OTHER ==
--- OUTSIDE RECORDS SUMMARY | 2019-03-07 10:27 | XMS REPORT | Continuity of Care Document ---
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 Katia Boyer MD Primary Care Physician Unavailable Payers Date Identification Numbers Payment Provider Subscriber Policy Number: [id number] Medicaid Nasir Quinn PayID: [id number] [address] [place] [address] Effective: 2018 Policy Number: [id number] Hnana Nasir Quinn Expires: 2018 PayID: [id number] [address] [address] [place] [address] Effective: 2017 Policy Number: [id number] [place] [employer] Nasir Quinn Expires: 2019 PayID: [id number] [address] [place] [address] Expires: 2018 Policy Number: [id number] Medicaid Nasir Quinn PayID: [id number] [address] [place] [address] Problems Active Problems Provider Date Constipation Xander Curran MD Onset: 12/22/2016 Abdominal pain Xander Curran MD Onset: 12/22/2016 Vomiting, unspecified Xander Curran MD Onset: 12/22/2016 Attention-deficit hyperactivity disorder, Katia Boyer MD Onset: 11/06/2018 unspecified type Disruptive mood dysregulation disorder Katia Boyer MD Onset: 11/06/2018 Dehydration Xander Curran MD Onset: 04/03/2018 Hemorrhage of rectum and anus Xander Curran MD Onset: 02/01/2018 Headache Katia Boyer MD Onset: 01/10/2018 Symptom of skin and integumentary tissue Katia Boyer MD Onset: 01/10/2018 Corns and callosities Katia Boyer MD Onset: 11/14/2017 Dissociative convulsions Katia Boyer MD Onset: 11/14/2017 Heartburn Xander Curran MD Onset: 10/03/2017 Irritable bowel syndrome characterized by Xander Curran MD Onset: 10/03/2017 constipation Gastroduodenitis Xander Curran MD Onset: 04/04/2017 Family History Date Family Member(s) Observation Comments General Liver Cancer great maternal grandmother Father Seizure Disorder Father Blood Disorder Mother Diabetes Mellitus Type 2 Mother Asthma Mother Kidney Stones First Sister Crohn's Disease Social History Type Date Description Comments Sex Unknown Marital Status Single Lives With Mother Home Environment Lives with Mother Occupation [employer] Work Status Not Currently Working Work Status Part-Time Hand Dominance Left-handed Tobacco Use Start: Unknown Never Smoked Cigarettes Smoking Status Reviewed: 02/11/19 Never Smoked Cigarettes ETOH Use Denies alcohol use Tobacco Use Start: Unknown Patient denies history of smoking Recreational Drug Use Denies Drug Use Allergies, Adverse Reactions, Alerts Active Allergies Reaction Severity Comments Date Erythromycin throat swells 11/27/2016 Augmentin rash 11/27/2016 Bactrim 12/22/2016 Latex 12/22/2016 Zithromax 12/22/2016 Adhesives Medications Active Medications SIG Qnty Indications Ordering Date Provider Diclofenac Sodium 1 tab twice a day 60tabs Lavinia Pereyra, 02/14/2019 with food [address] Self Apply to 60gm B37.2 Katia Boyer, 01/20/2019 inframammary area [id number]/GM Powder bid Lactulose 30 ml by mouth 900ml K59.00 Zane, 10/29/2018 20GM/30ML twice a day as MD Meir Solution needed Simethicone take one every 6 120units R14.0 Gagen, 09/18/2018 80mg hours as needed for MS Angelina, Chewtabs bloating. 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 Sara Allergy Take one every day 90tabs L50.1 Gagen, 09/18/2018 180mg MS Angelina, Tablets 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 Amitriptyline HCL take 1 tablet by 90tabs R10.9 Zane, 02/01/2018 mouth once daily AT MD Meir 10mg Tablets Night Miralax 1 packet by mouth 90units K58.1 Zane, 02/01/2018 3350NF Packet every day MD Meir Sleepaid 1 tab at bedtime Al Boyera, 01/10/2018 25mg Tablets MD Fluoxetine HCL 1 by mouth every 30caps Al Boyera, 07/06/2017 (PMDD) day MD 20mg Capsules Miralax 3 cap by mouth 3Bottangelito Curran MD 02/21/2017 3350NF Powder every day every morning Tri-Linyah take as directed on 28tabs Al Boyera, 12/12/2016 pack 0.18/0.215/0.25 mg-35 mcg Tablets Colace 2 tab by mouth 60caps Gagen, 100mg Capsules daily MS Angelina, KENNY-Osmin, CAITLIN Linzess 1 by mouth every 90caps Zane, 145mcg day every morning MD Meir Capsules Ra Senna 1 tab as needed for 30tabs Al Boyera, 8.6mg constipation MD Tablets Tylenol 2 tab po prn Unknown 500mg History Medications Sertraline HCL 1 tab by mouth 60tabs F34.81 Al Boyera, 11/06/2018 - 25mg every night x 2 MD 01/20/2019 Tablets weeks then increase to two tabs at night Bentyl cap by mouth 90caps R10.9 Xander Curran MD 10/03/2017 - 10mg Capsules three times a day 11/06/2018 as needed for crampy abd pain Zantac 150 Maximum 1 by mouth every 90tabs R10.9 Xander Curran MD 10/03/2017 - Strength day 10/29/2018 150mg Tablets Strattera weaning off-1 60caps Gagbree, 09/12/2017 - 40mg caps by mouth MS Angelina, 01/20/2019 Capsules every day for 2 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 weeks then stop Clindamycin HCL 1 tab by mouth 30caps Katia Boyer, 07/31/2017 - 300mg every 8 hours for MD Unknown Capsules 10 days Clotrimazole apply to affected 28gm MerlinKatia, 07/06/2017 - Anti-Fungal area twice a day MD Bejarano 1% Cream Tylenol Extra 1-2 tabs by mouth 60tabs Katia Boyer, 07/06/2017 - Strength every 12 hours as 04/03/2018 500mg needed Tablets Fluoxetine HCL 1 by mouth every 30tabs Katia Boyer, 05/17/2017 - 10mg day 07/06/2017 Tablets Dicyclomine HCL 1 cap by mouth 90caps R10.9 Xander Curran MD 04/04/2017 - 10mg three times a day Unknown Capsules as needed Dulcolax 4 tablets taken a 4tabs R10.9 Xander Curran MD 04/04/2017 - 5mg Tablets 8pm the day Unknown DR before the procedure Peg-[id number]/Electrolyte please drink 1/2 1units R10.9 Xander Curran MD 2016 - s evening before Unknown 236gm Solution Rec and drink 1/2 morning of the procedure (1 cup every 15 minutes) Citroma 1 bottle by mouth 1bottle R10.9 Xander Curran MD 04/04/2017 - 1.745GM/30ML once Unknown Solution Linzess 1 by mouth every 90caps Xander Curran MD 02/12/2017 - 145mcg day Unknown Capsules Dok 2 PO Qam Arash, - 100mg Capsules MD Carmel Unknown Ranitidine HCL 1 bid Silvanoafsanjuana, - 150mg MD Carmel Unknown Tablets Ondansetron HCL every 8 hours as 90tabs Katia Boyer, - 4mg needed Unknown Tablets Tylenol PM Extra 1 tab by mouth 30tabs Katia Boyer, - Strength every night as 01/10/2018 500-25mg needed Tablets OCP Unknown - 12/12/2016 Pantoprazole Sodium 1 by mouth bid Unknown - Unknown 20mg Tablets DR Strattera 1 tab every 30caps Merlin, Katia, - 80mg morning 09/12/2017 Capsules Loratadine 1 tab daily 30tabs Merlin, Katia, - 10mg 09/18/2018 Tablets Immunizations CPT Code Status Date Vaccine Lot # [id number] Given 07/09/2018 Influenza Virus Vaccine, Quadrivalent, 36 Mos+, [id number] Given 07/06/2017 Influenza Virus Vaccine Quadrivalent Iiv4 Split [id number] Preser Free Id Vital Signs Date Vital Result Comment 02/14/2019 3:07pm BP Systolic Sitting Left Arm 104 mmHg BP Diastolic Sitting Left Arm 70 mmHg Body Temperature 98.8 F Heart Rate 87 /min Respiratory Rate 18 /min Height 63 inches 5'3" Weight 183.00 lb BMI (Body Mass Index) 32.4 kg/m2 BSA (Body Surface Area) 1.86 m2 [place] body weight in kilograms 52 kg O2 % BldC Oximetry 100 % 02/14/2019 10:30am BP Systolic 105 mmHg BP Diastolic 72 mmHg Body Temperature 97.5 F Heart Rate 101 /min Height 63 inches 5'3" Weight 184.00 lb BMI (Body Mass Index) 32.6 kg/m2 BSA (Body Surface Area) 1.87 m2 [place] body weight in kilograms 52 kg O2 % BldC Oximetry 99 % 02/11/2019 11:39am BP Systolic Sitting Left Arm 114 mmHg BP Diastolic Sitting Left Arm 84 mmHg Body Temperature 98.2 F Heart Rate 82 /min Respiratory Rate 18 /min Height 64 inches 5'4" Weight 183.00 lb BMI (Body Mass Index) 31.4 kg/m2 BSA (Body Surface Area) 1.88 m2 [place] body weight in kilograms 54 kg O2 % BldC Oximetry 98 % 02/10/2019 9:10am BP Systolic Sitting Left Arm 105 mmHg BP Diastolic Sitting Left Arm 79 mmHg Heart Rate 94 /min Respiratory Rate 16 /min Height 64 inches 5'4" Weight 185.00 lb BMI (Body Mass Index) 31.8 kg/m2 BSA (Body Surface Area) 1.89 m2 [place] body weight in kilograms 54 kg O2 % BldC Oximetry 98 % 01/30/2019 1:52pm BP Systolic Sitting Left Arm 102 mmHg BP Diastolic Sitting Left Arm 77 mmHg Heart Rate 93 /min Respiratory Rate 16 /min Height 64 inches 5'4" Weight 183.12 lb BMI (Body Mass Index) 31.4 kg/m2 BSA (Body Surface Area) 1.88 m2 [place] body weight in kilograms 54 kg O2 % BldC Oximetry 98 % 01/20/2019 11:42am BP Systolic Sitting Left Arm 114 mmHg BP Diastolic Sitting Left Arm 80 mmHg Body Temperature 98.2 F Heart Rate 102 /min Respiratory Rate 18 /min Height 64 inches 5'4" Weight 181.00 lb BMI (Body Mass Index) 31.1 kg/m2 BSA (Body Surface Area) 1.88 m2 [place] body weight in kilograms 54 kg O2 % BldC Oximetry 98 % Ra 11/06/2018 10:39am BP Systolic Sitting Left Arm 102 mmHg BP Diastolic Sitting Left Arm 64 mmHg Heart Rate 106 /min Respiratory Rate 18 /min Height 64 inches 5'4" Weight 168.00 lb BMI (Body Mass Index) 28.8 kg/m2 BSA (Body Surface Area) 1.82 m2 [place] body weight in kilograms 54 kg O2 % BldC Oximetry 98 % ra 11/06/2018 10:32am Body Temperature 99.1 F Height 64 inches 5'4" Weight 168.00 lb BMI (Body Mass Index) 28.8 kg/m2 BSA (Body Surface Area) 1.82 m2 [place] body weight in kilograms 54 kg 10/29/2018 1:29pm BP Systolic 109 mmHg BP Diastolic 83 mmHg Body Temperature 99.4 F Heart Rate 105 /min Respiratory Rate 16 /min Height 64 inches 5'4" Weight 168.12 lb BMI (Body Mass Index) 28.9 kg/m2 BSA (Body Surface Area) 1.82 m2 [place] body weight in kilograms 54 kg O2 % BldC Oximetry 99 % Ra Pain Level 5 stomach, chest 09/18/2018 9:00am BP Systolic Sitting Right Arm 102 mmHg BP Diastolic Sitting Right Arm 60 mmHg Body Temperature 98.1 F Heart Rate 106 /min Respiratory Rate 24 /min Height 64 inches 5'4" Weight 164.00 lb BMI (Body Mass Index) 28.1 kg/m2 BSA (Body Surface Area) 1.80 m2 [place] body weight in kilograms 54 kg O2 % BldC Oximetry 98 % ra 07/09/2018 9:21am BP Systolic Sitting Left Arm 116 mmHg BP Diastolic Sitting Left Arm 77 mmHg Body Temperature 99.1 F Heart Rate 116 /min Respiratory Rate 20 /min Height 64 inches 5'4" Weight 150.00 lb BMI (Body Mass Index) 25.7 kg/m2 BSA (Body Surface Area) 1.73 m2 [place] body weight in kilograms 54 kg O2 % BldC Oximetry 99 % 05/17/2018 9:38am BP Systolic Sitting Right Arm 119 mmHg BP Diastolic Sitting Right Arm 81 mmHg Body Temperature 97.9 F Heart Rate 100 /min Respiratory Rate 12 /min Height 64 inches 5'4" Weight 149.00 lb BMI (Body Mass Index) 25.6 kg/m2 BSA (Body Surface Area) 1.73 m2 [place] body weight in kilograms 54 kg O2 % BldC Oximetry 100 % 04/03/2018 9:46am BP Systolic Sitting Left Arm 110 mmHg BP Diastolic Sitting Left Arm 80 mmHg Heart Rate 90 /min Respiratory Rate 16 /min Height 64 inches 5'4" Weight 138.00 lb BMI (Body Mass Index) 23.7 kg/m2 BSA (Body Surface Area) 1.67 m2 [place] body weight in kilograms 54 kg O2 % BldC Oximetry 98 % 02/01/2018 10:10am BP Systolic Sitting Left Arm 103 mmHg BP Diastolic Sitting Left Arm 78 mmHg Heart Rate 96 /min Respiratory Rate 18 /min Height 64 inches 5'4" Weight 131.00 lb BMI (Body Mass Index) 22.5 kg/m2 BSA (Body Surface Area) 1.63 m2 [place] body weight in kilograms 54 kg Height Percentile 45 % Weight Percentile 55th 01/10/2018 12:00pm BP Systolic Sitting Left Arm 104 mmHg BP Diastolic Sitting Left Arm 72 mmHg Heart Rate 96 /min Respiratory Rate 16 /min Height 64 inches 5'4" Weight 131.00 lb BMI (Body Mass Index) 22.5 kg/m2 BSA (Body Surface Area) 1.63 m2 [place] body weight in kilograms 54 kg Height Percentile 45 % Weight Percentile 55th 11/14/2017 12:05pm BP Systolic Sitting Left Arm 113 mmHg BP Diastolic Sitting Left Arm 80 mmHg Heart Rate 101 /min Height 64 inches 5'4" Weight 132.00 lb BMI (Body Mass Index) 22.7 kg/m2 BSA (Body Surface Area) 1.64 m2 [place] body weight in kilograms 54 kg Height Percentile 45 % Weight Percentile 57th 10/03/2017 10:08am BP Systolic Sitting Left Arm 120 mmHg BP Diastolic Sitting Left Arm 70 mmHg Heart Rate 102 /min Respiratory Rate 16 /min Height 64 inches 5'4" Weight 132.00 lb BMI (Body Mass Index) 22.7 kg/m2 BSA (Body Surface Area) 1.64 m2 [place] body weight in kilograms 54 kg Height Percentile 45 % Weight Percentile 58th 07/31/2017 10:53am BP Systolic Sitting Left Arm 120 mmHg BP Diastolic Sitting Left Arm 80 mmHg Body Temperature 98.9 F Heart Rate 90 /min Respiratory Rate 16 /min Height 64 inches 5'4" Weight 137.00 lb BMI (Body Mass Index) 23.5 kg/m2 BSA (Body Surface Area) 1.67 m2 [place] body weight in kilograms 54 kg Height Percentile 45 % Weight Percentile 66th 07/06/2017 2:30pm BP Systolic Sitting Right Arm 113 mmHg BP Diastolic Sitting Right Arm 74 mmHg Heart Rate 109 /min Height 64 inches 5'4" Weight 132.00 lb BMI (Body Mass Index) 22.7 kg/m2 BSA (Body Surface Area) 1.64 m2 [place] body weight in kilograms 54 kg Height Percentile 46 % Weight Percentile 59th 04/04/2017 3:44pm BP Systolic Sitting Left Arm 118 mmHg BP Diastolic Sitting Left Arm 78 mmHg Heart Rate 89 /min Respiratory Rate 16 /min Height 64 inches 5'4" Weight 136.00 lb BMI (Body Mass Index) 23.3 kg/m2 BSA (Body Surface Area) 1.66 m2 [place] body weight in kilograms 54 kg 12/22/2016 3:27pm BP Systolic Sitting Left Arm 110 mmHg BP Diastolic Sitting Left Arm 80 mmHg Heart Rate 76 /min Respiratory Rate 16 /min Height 64 inches 5'4" Weight 138.00 lb BMI (Body Mass Index) 23.7 kg/m2 BSA (Body Surface Area) 1.67 m2 [place] body weight in kilograms 54 kg Height Percentile 46 % Weight Percentile 70th 12/18/2016 10:03am BP Systolic 106 mmHg BP Diastolic 73 mmHg Heart Rate 101 /min Height 63.75 inches 5'3.75" Weight 136.00 lb BMI (Body Mass Index) 23.5 kg/m2 BSA (Body Surface Area) 1.66 m2 Height Percentile 42 % Weight Percentile 67th 11/27/2016 1:18pm BP Systolic 126 mmHg BP Diastolic 88 mmHg Body Temperature 98.2 F Heart Rate 105 /min Height 63.75 inches 5'3.75" Weight 137.00 lb BMI (Body Mass Index) 23.7 kg/m2 BSA (Body Surface Area) 1.66 m2 [place] body weight in kilograms 54 kg Height Percentile 42 % Weight Percentile 69th Results Test Date Facility Test Result H/L Range Note Urine Dipstick 02/11/2019 [facility] Ua Color yellow Yellow Ua Clarity clear Clear Ua Leuko trace Negative Ua Nitrite negative Negative Ua Urobilinogen 0.2 0.2 - 1.0 E.U./dL Ua Protein negative Negative Ua PH 7.0 6.5-7.5 Ua Blood negative Negative Ua Specific [place] 1.015 1.010-1.030 Ua Ketones negative Negative Ua Bilirubin negative Negative Ua Glucose negative Negative Chlam/GC/Trichomonas 02/11/2019 [facility] Ur Trichomonas NEGATIVE Negative 1 PCR, Ur [address] vaginalfloyd,[place] [address] [phone] Ur Chlamydia trachomatis,PCR NEGATIVE Negative Ur Neisseria gonorrhoeae,PCR NEGATIVE Negative 2 Ua RFX Micro & Culture 02/11/2019 [facility] Urine Color YELLOW Yellow II [address] [place] [address] [phone] Urine Clarity CLEAR Clear Urine Glucose - Dipstick NEGATIVE mg/dL Negative Urine Bilirubin - Dipstick NEGATIVE Negative Urine Ketone NEGATIVE mg/dL Negative Urine Specific [place] 1.010 N 1.010-1.030 Urine Blood TRACE Negative Urine PH 6.5 N 6.5-7.5 Urine Protein - Dipstick NEGATIVE mg/dL Negative Urine Urobilinogen - Dipstick 0.2 E.U./dL N 0.2-1.0 Urine Nitrite - Dipstick NEGATIVE Negative Urine Leuk Esterase SMALL Abnormal Negative Urine RBC 0-2 rbc/hpf 0-2 Urine WBC 2-5 wbc/hpf 0-7 Urine Epithelial Cells MODERATE /lpf None Seen 3 Urine Bacteria FEW None Seen Urine HCG 02/11/2019 [facility] Urine HCG NEGATIVE Negative 4, 5 (Qualitative) [address] (Qualitative) [place] [address] [phone] Source: URINE, CLEAN CAT <SEE NOTE> 6 Ua RFX Micro & Culture 02/11/2019 [facility] Urine Color YELLOW Yellow II [address] [place] [address] [phone] Urine Clarity CLEAR Clear Urine Glucose - Dipstick NEGATIVE mg/dL Negative Urine Bilirubin - Dipstick NEGATIVE Negative Urine Ketone NEGATIVE mg/dL Negative Urine Specific [place] 1.010 N 1.010-1.030 Urine Blood TRACE Negative Urine PH 7.0 N 6.5-7.5 Urine Protein - Dipstick NEGATIVE mg/dL Negative Urine Urobilinogen - Dipstick 0.2 E.U./dL N 0.2-1.0 Urine Nitrite - Dipstick NEGATIVE Negative Urine Leuk Esterase NEGATIVE Negative Urine RBC 0-2 rbc/hpf 0-2 Urine WBC 2-5 wbc/hpf 0-7 Urine Epithelial Cells FEW /lpf None Seen Urine Bacteria FEW None Seen Source: URINE, CLEAN CAT <SEE NOTE> 7 Laboratory 02/11/2019 [facility] HCG,Serum NEGATIVE (Negative) 8 test finding [address] (Qualitative) [place] [address] [phone] Laboratory 02/11/2019 [facility] Treponema Negative Negative test finding [address] [place] [address] [phone] Hepatitis 02/11/2019 [facility] Hepatitis A Negative Negative Evaluation [address] [place] [address] [phone] HBsAg Screen [Ref Lab] Negative Negative Hepatitis B Core IgM Negative Negative HCV Signal/Cutoff ratio < 0.1 s/corat 0.0-0.9 9 HIV 1/2 Rapid 02/11/2019 [facility] HIV 1/2 Non-Reactive [address] [place] [address] [phone] Liver Function 02/10/2019 [facility] Total Protein 8.0 g/dL N 6.4-8.2 [address] [place] [address] [phone] Albumin 3.5 g/dL N 3.4-5.0 Globulin 4.5 g/dL High 1.9-4.3 Alb/Glob 0.8 ratio Bilirubin,Total 0.2 mg/dL N 0.2-1.0 Bilirubin,Direct < 0.1 mg/dL N 0.0-0.2 Bilirubin,Indirect 0.1 mg/dL N 0.0-0.9 Sgot/Ast 19 U/L N 15-37 SGPT/Alt 25 U/L N 12-78 Alkaline Phosphatase 115 U/L N 45-117 Laboratory test finding 02/10/2019 [facility] Amylase 74 U/L N 25-115 [address] [place] [address] [phone] Lipase 96 U/L N 56-289 Occult 01/22/2019 [facility] Stool Occult POSITIVE Abnormal Negative 12, Blood,Stool [address] [facility] Blood-Single [address] [place] [address] Spec [phone] Ua RFX Micro 01/22/2019 [facility] Urine Color YELLOW Yellow & Culture II [address] [place] [address] [phone] Urine Clarity CLOUDY Clear Urine Glucose - Dipstick NEGATIVE mg/dL Negative Urine Bilirubin - Dipstick NEGATIVE Negative Urine Ketone NEGATIVE mg/dL Negative Urine Specific [place] 1.025 N 1.010-1.030 Urine Blood LARGE Abnormal Negative Urine PH 6.5 N 6.5-7.5 Urine Protein - Dipstick TRACE mg/dL Negative Urine Urobilinogen - Dipstick 0.2 E.U./dL N 0.2-1.0 Urine Nitrite - Dipstick NEGATIVE Negative Urine Leuk Esterase TRACE Abnormal Negative Urine RBC 10-20 rbc/hpf High 0-2 Urine WBC 5-10 wbc/hpf 0-7 Urine Epithelial Cells MODERATE /lpf None Seen 14 Urine Bacteria MODERATE Abnormal None Seen Source: URINE, CLEAN CAT <SEE NOTE> 15 Urine Culture 01/22/2019 [facility] Urine Culture URETHRAL MARGARITA [address] [place], [place] [id number] [phone] Quantity > 100,000 CFU/mL 16 Laboratory test 01/21/2019 [facility] Cortisol,Am 18.7 6.2-19.4 17, [address] g/dL [place], [place] [id number] [phone] Comprehensive 01/21/2019 [facility] Glucose 78 mg/dL N 74-106 Metabolic Panel [address] [place] [address] [phone] BUN 9 mg/dL N 7-18 Creatinine 0.8 mg/dL 0.6-1.3 Glom Filtration Rate, Estimate >60 mL/min >60 If >60 mL/min >60 19 BUN/Creat 11.2 ratio Sodium 137 mmol/L N 136-145 Potassium 3.9 mmol/L N 3.5-5.1 Chloride 104 mmol/L N 98-107 Carbon Dioxide 26 mmol/L N 21-32 Anion Gap 7 mEq/L Low 8-16 Calcium 9.4 mg/dL N 8.5-10.1 Total Protein 8.5 g/dL High 6.4-8.2 Albumin 3.7 g/dL N 3.4-5.0 Globulin 4.8 g/dL High 1.9-4.3 Alb/Glob 0.8 ratio Bilirubin,Total 0.2 mg/dL N 0.2-1.0 Sgot/Ast 28 U/L N 15-37 SGPT/Alt 32 U/L N 12-78 Alkaline Phosphatase 126 U/L High 45-117 CBC W/Automated Diff 01/21/2019 [facility] White Blood 6.9 K/uL N 3.1-10.[address] [place], [place] [id number] [phone] Red Blood Count 4.42 M/uL N 3.90-5.40 Hemoglobin 13.1 gm/dL N 11.6-15.8 Hematocrit 40.1 % N 36.0-46.1 Mean Cell Volume 90.7 fl N 80.9-99.0 Mean Corpuscular HGB 29.6 pg N 25.9-32.7 Mean Corpuscular HGB Conc 32.7 g/dL N 30.8-34.3 Platelet Count 402 K/uL High 155-360 Red Cell Distri Width SD 45.6 fl N 36-47 Red Cell Distri Width %CV 13.6 % N 11.7-14.4 Mean Platelet Volume 9.6 fl N 8.9-12.4 Neut% 49.3 % N 28.0-68.0 Lymph % 40.4 % N 20.0-42.0 Curry % 6.9 % N 4.3-13.2 Eo% 2.2 % N 0.0-6.6 Bas% 0.9 % N 0.0-1.1 Immature Grans 0.3 % N 0.0-5.0 NRBC % 0.0 /100WBC < 10/ 100 WBC Neut# 3.38 K/uL N 1.8-7.0 Lymph # 2.77 K/uL N 1.0-4.0 Curry # 0.47 K/uL N 0.3-0.9 Eos # 0.15 K/uL N 0.0-0.5 Baso # 0.06 K/uL N 0.0-0.1 Immature Grans Absolute 0.02 K/uL NRBC # 0.00 K/uL Laboratory test 01/21/2019 [facility] Acth,Plasma 29.4 pg/mL 7.2-63.3 20 finding [address] [place] [address] [phone] Ua RFX Micro & 11/10/2018 [facility] Urine Color YELLOW Yellow 21 Culture II [address] [place] [address] [phone] Urine Clarity CLOUDY Clear Urine Glucose - Dipstick NEGATIVE mg/dL Negative Urine Bilirubin - Dipstick NEGATIVE Negative Urine Ketone NEGATIVE mg/dL Negative Urine Specific [place] 1.015 N 1.010-1.030 Urine Blood NEGATIVE Negative Urine PH 8.5 High 6.5-7.5 Urine Protein - Dipstick TRACE mg/dL Negative Urine Urobilinogen - Dipstick 0.2 E.U./dL N 0.2-1.0 Urine Nitrite - Dipstick NEGATIVE Negative Urine Leuk Esterase NEGATIVE Negative Source: URINE, CLEAN CAT <SEE NOTE> 22 Laboratory test 11/10/2018 [facility] Urine HCG NEGATIVE Negative 23 finding [address] [facility] (Qualitative) [place] [address] [phone] Laboratory test 07/20/2018 [facility] Laboratory Rapid Strep Negative Negative 24 finding [phone] Molecular CBC W/Automated 06/15/2018 [facility] White Blood Count 7.1 K/uL N 3.1-10.7 25 Diff [address] [place] [address] [phone] Red Blood Count 4.28 M/uL N 3.90-5.40 Hemoglobin 13.1 gm/dL N 11.6-15.8 Hematocrit 39.2 % N 36.0-46.1 Mean Cell Volume 91.6 fl N 80.9-99.0 Mean Corpuscular HGB 30.6 pg N 25.9-32.7 Mean Corpuscular HGB Conc 33.4 g/dL N 30.8-34.3 Platelet Count 313 K/uL N 155-360 Red Cell Distri Width SD 41.9 fl N 3-47 Red Cell Distri Width %CV 12.8 % N 11.7-14.4 Mean Platelet Volume 10.0 fL N 8.9-12.4 Neut% 48.4 % N 28.0-68.0 Lymph % 42.9 % High 20.0-42.0 Curry % 5.2 % N 4.3-13.2 Eo% 3.1 % N 0.0-6.6 Bas% 0.4 % N 0.0-1.1 Neut# 3.42 K/uL N 1.8-7.0 Lymph # 3.04 K/uL N 1.0-4.0 Curry # 0.37 K/uL N 0.3-0.9 Eos # 0.22 K/uL N 0.0-0.5 Baso # 0.03 K/uL N 0.0-0.1 Ua RFX Micro & Culture 06/15/2018 [facility] Urine Color YELLOW Yellow II [address] [place] [address] [phone] Urine Clarity CLEAR Clear Urine Glucose - Dipstick NEGATIVE mg/dL Negative Urine Bilirubin - Dipstick NEGATIVE Negative Urine Ketone NEGATIVE mg/dL Negative Urine Specific [place] >=1.030 N 1.010-1.030 Urine Blood NEGATIVE Negative Urine PH 6.0 Low 6.5-7.5 Urine Protein - Dipstick TRACE mg/dL Negative Urine Urobilinogen - Dipstick 0.2 E.U./dL N 0.2-1.0 Urine Nitrite - Dipstick NEGATIVE Negative Urine Leuk Esterase NEGATIVE Negative Source: URINE, CLEAN CAT <SEE NOTE> 26 CBS W/Automated 04/03/2018 [facility] White Blood 5.1 K/uL N 3.1-10.7 [address] [place] [address] [phone] Red Blood Count 3.89 M/uL Low 3.90-5.40 Hemoglobin 11.6 gm/dL N 11.6-15.8 Hematocrit 35.6 % Low 36.0-46.1 Mean Cell Volume 91.5 fl N 80.9-99.0 Mean Corpuscular HGB 29.8 pg N 25.9-32.7 Mean Corpuscular HGB Conc 32.6 g/dL N 30.8-34.3 Platelet Count 278 K/uL N 155-360 Red Cell Distri Width SD 42.5 fl N 3-47 Red Cell Distri Width %CV 13.0 % N 11.7-14.4 Mean Platelet Volume 10.0 fL N 8.9-12.4 Neut% 44.3 % N 28.0-68.0 Lymph % 46.7 % High 20.0-42.0 Curry % 7.6 % N 4.3-13.2 Eo% 0.6 % N 0.0-6.6 Bas% 0.8 % N 0.0-1.1 Neut# 2.28 K/uL N 1.8-7.0 Lymph # 2.40 K/uL N 1.0-4.0 Curry # 0.39 K/uL N 0.3-0.9 Eos # 0.03 K/uL N 0.0-0.5 Baso # 0.04 K/uL N 0.0-0.1 CBS W/Automated 11/23/2017 [facility] White Blood 6.6 K/uL N 3.1-10.[address] [place] [address] [phone] Red Blood Count 4.51 M/uL N 3.90-5.40 Hemoglobin 13.7 gm/dL N 11.6-15.8 Hematocrit 40.9 % N 36.0-46.1 Mean Cell Volume 90.7 fl N 80.9-99.0 Mean Corpuscular HGB 30.4 pg N 25.9-32.7 Mean Corpuscular HGB Conc 33.5 g/dL N 30.8-34.3 Platelet Count 279 K/uL N 155-360 Red Cell Distri Width SD 44.2 fl N 3-47 Red Cell Distri Width %CV 13.7 % N 11.7-14.4 Mean Platelet Volume 10.4 fL N 8.9-12.4 Neut% 59.5 % N 28.0-68.0 Lymph % 32.1 % N 20.0-42.0 Curry % 7.3 % N 4.3-13.2 Eo% 0.6 % N 0.0-6.6 Bas% 0.5 % N 0.0-1.1 Neut# 3.94 K/uL N 1.8-7.0 Lymph # 2.12 K/uL N 1.0-4.0 Curry # 0.48 K/uL N 0.3-0.9 Eos # 0.04 K/uL N 0.0-0.5 Baso # 0.03 K/uL N 0.0-0.1 Ua RFX Micro & Culture 11/23/2017 [facility] Urine Color YELLOW Yellow II [address] [place] [address] [phone] Urine Clarity CLEAR Clear Urine Glucose - Dipstick NEGATIVE mg/dL Negative Urine Bilirubin - Dipstick NEGATIVE Negative Urine Ketone NEGATIVE mg/dL Negative Urine Specific [place] <=1.005 Low 1.010-1.030 Urine Blood NEGATIVE Negative Urine PH 6.0 Low 6.5-7.5 Urine Protein - Dipstick NEGATIVE mg/dL Negative Urine Urobilinogen - Dipstick 0.2 E.U./dL N 0.2-1.0 Urine Nitrite - Dipstick NEGATIVE Negative Urine Leuk Esterase NEGATIVE Negative Source: URINE, CLEAN CAT <SEE NOTE> 29 Chlamydia/GC 11/23/2017 [facility] Chlamydia Negative Negative Mickie, Urine [address] [facility] Trachomatis,[place] [address] -PCR [phone] Neisseria Gonorrhoeae,Ur -PCR Negative Negative 30 Ua Routine 05/03/2017 [facility] Urine Color YELLOW Yellow 31 [address] [place] [address] [phone] Urine Clarity CLEAR Clear Urine Glucose - Dipstick NEGATIVE mg/dL Negative Urine Bilirubin - Dipstick NEGATIVE Negative Urine Ketone NEGATIVE mg/dL Negative Urine Specific [place] 1.010 N 1.010-1.030 Urine Blood SMALL Abnormal Negative Urine PH 6.5 N 6.5-7.5 Urine Protein - Dipstick NEGATIVE mg/dL Negative Urine Urobilinogen - Dipstick 0.2 E.U./dL N 0.2-1.0 Urine Nitrite - Dipstick NEGATIVE Negative Urine Leuk Esterase TRACE Abnormal Negative Urine RBC NONE SEEN rbc/hpf 0-2 Urine WBC 0-2 wbc/hpf 0-7 Urine Epithelial Cells FEW /lpf None Seen Urine Bacteria NONE SEEN None Seen Source: URINE, CLEAN CAT <SEE NOTE> 32 Chlamydia/GC 05/03/2017 [facility] Chlamydia Negative Negative Mickie, Urine [address] Trachomatis,[place] [address] -Mickie [phone] Neisseria Gonorrhoeae,Ur -Mickie Negative Negative 33 CBS W/Automated Diff 05/03/2017 [facility] White Blood 6.8 K/uL N 3.1-10.[address] [place] [address] [phone] Red Blood Count 4.17 M/uL N 3.90-5.40 Hemoglobin 12.8 gm/dL N 11.6-15.8 Hematocrit 37.5 % N 36.0-46.1 Mean Cell Volume 89.9 fl N 80.9-99.0 Mean Corpuscular HGB 30.7 pg N 25.9-32.7 Mean Corpuscular HGB Conc 34.1 g/dL N 30.8-34.3 Platelet Count 290 K/uL N 150-400 Red Cell Distri Width SD 40.9 fl N 3-47 Red Cell Distri Width %CV 12.8 % N 11.7-14.4 Mean Platelet Volume 10.6 fL N 8.9-12.4 Neut% 61.2 % N 28.0-68.0 Lymph % 30.9 % N 20.0-42.0 Curry % 6.0 % N 4.3-13.2 Eo% 1.3 % N 0.0-6.6 Bas% 0.6 % N 0.0-1.1 Neut# 4.18 K/uL N 1.8-7.0 Lymph # 2.11 K/uL N 1.0-4.0 Curry # 0.41 K/uL N 0.3-0.9 Eos # 0.09 K/uL N 0.0-0.5 Baso # 0.04 K/uL N 0.0-0.1 Laboratory 05/01/2017 [facility] Urine HCG NEGATIVE Negative 34, 35 test finding [address] (Qualitative) [place] [address] [phone] Laboratory 12/25/2016 [facility] C1 Esterase 70 %meanno . 36, 37 test finding [address] [place] [address] Function [phone] C1 Esterase Inhibitor 25 mg/dL 21-39 Complement C4, Serum 31 mg/dL 14-44 TSH W/Free T4 12/25/2016 [facility] Thyroid Stim 1.39 uIU/mL N 0.30-4.[address] [place] [address] [phone] Reflex add FT3? Y Reflex add FT4? Y Celiac Disease 12/25/2016 [facility] Immunoglobulin A 348 mg/dL 87-[address] [place], [place] [id number] [phone] Antigliadin Abs, IgG 2 units 0-19 38 Antigliadin Abs, IgA 6 units 0-19 39 Endomysial IgA Antibody Negative Negative t-Transglutaminase IgA <2 U/mL 0-3 40 t-Transglutaminase IgG <2 U/mL 0-5 41 Laboratory test 12/25/2016 [facility] Sedimentation Rate 13 mm/hr N 0-20 [address] [place] [address] [phone] CRP (High 12/25/2016 [facility] C-Reactive 0.87 mg/L <3.0 Sensitivity) [address] Protein,Cardiac [place], [place] [id number] [phone] Reflex add FT3? Y Reflex add FT4? Y Laboratory 12/23/2016 [facility] Porphobilinogen,QN,Random 0.0 0.0-2.0 43, test finding [address] Urin mg/L 44 [place], [place] [address] [phone] Comprehensive 11/27/2016 [facility] Glucose 83 N 74-106 [address] mg/dL Panel [place], [place] [address] [phone] BUN 10 mg/dL N 7-18 Creatinine 0.7 mg/dL N 0.6-1.3 Glom Filtration Rate, Estimate >60 mL/min >60 If >60 mL/min >60 46 BUN/Creat 14.2 ratio Sodium 140 mmol/L N 136-145 Potassium 4.2 mmol/L N 3.5-5.1 Chloride 106 mmol/L N 98-107 Carbon Dioxide 25 mmol/L N 21-32 Anion Gap 9 mEq/L N 8-16 Calcium 9.3 mg/dL N 8.5-10.1 Total Protein 8.3 g/dL High 6.4-8.2 Albumin 4.0 g/dL N 3.4-5.0 Globulin 4.3 g/dL N 1.9-4.3 Alb/Glob 0.9 ratio Bilirubin,Total 0.2 mg/dL N 0.2-1.0 Sgot/Ast 22 U/L N 15-37 SGPT/Alt 25 U/L N 12-78 Alkaline Phosphatase 82 U/L N 45-117 CBS W/Automated Diff 11/27/2016 [facility] White Blood 5.4 K/uL N 3.1-10.[address] [place] [address] [phone] Red Blood Count 4.65 M/uL N 3.90-5.40 Hemoglobin 13.7 gm/dL N 11.6-15.8 Hematocrit 41.4 % N 36.0-46.1 Mean Cell Volume 89.0 fl N 80.9-99.0 Mean Corpuscular HGB 29.5 pg N 25.9-32.7 Mean Corpuscular HGB Conc 33.1 g/dL N 30.8-34.3 Platelet Count 343 K/uL N 150-400 Red Cell Distri Width SD 40.8 fl N 3-47 Red Cell Distri Width %CV 12.7 % N 11.7-14.4 Mean Platelet Volume 11.1 fL N 8.9-12.4 Neut% 48.5 % N 28.0-68.0 Lymph % 42.8 % High 20.0-42.0 Curry % 7.2 % N 4.3-13.2 Eo% 0.9 % N 0.0-6.6 Bas% 0.6 % N 0.0-1.1 Neut# 2.61 K/uL N 1.8-7.0 Lymph # 2.30 K/uL N 1.0-4.0 Curry # 0.39 K/uL N 0.3-0.9 Eos # 0.05 K/uL N 0.0-0.5 Baso # 0.03 K/uL N 0.0-0.1 Laboratory test 11/27/2016 [facility] Thyroid Stim 2.21 uIU/mL N 0.30-4.[address] Hormone [place], [place] [address] [phone] Free T4 0.88 ng/dL N 0.76-1.46 Glycohemoglobin A1c 11/27/2016 [facility] Glycohemoglobin 5.0 % N 4.2-6.[address] (A1c) [place] [address] [phone] eAG 97 mg/dL Laboratory test 11/27/2016 [facility] Magnesium 2.4 mg/dL N 1.8-2.4 finding [address] [place], [place] [address] [phone] Vitamin B12 And 11/27/2016 [facility] Vitamin B12 363 pg/mL N 193-986 Folate [address] [place], [place] [address] [phone] Folic Acid 32.3 ng/mL High 3.1-17.5 48 Laboratory 11/27/2016 [facility] HCG,Serum NEGATIVE (Negative) test finding [address] (Qualitative) [place], [place] [id number] [phone] Ua Routine 11/27/2016 [facility] Urine Color YELLOW Yellow [address] [place] [address] [phone] Urine Clarity CLEAR Clear Urine Glucose - Dipstick NEGATIVE mg/dL Negative Urine Bilirubin - Dipstick NEGATIVE Negative Urine Ketone NEGATIVE mg/dL Negative Urine Specific [place] <=1.005 Low 1.010-1.030 Urine Blood TRACE Negative Urine PH 6.0 Low 6.5-7.5 Urine Protein - Dipstick NEGATIVE mg/dL Negative Urine Urobilinogen - Dipstick 0.2 E.U./dL N 0.2-1.0 Urine Nitrite - Dipstick NEGATIVE Negative Urine Leuk Esterase TRACE Abnormal Negative Urine RBC 0-2 rbc/hpf 0-2 Urine WBC 0-2 wbc/hpf 0-7 Urine Epithelial Cells FEW /lpf None Seen Urine Bacteria FEW None Seen Urine Amorph Sediment VERY FEW Negative Source: URINE, CLEAN CAT <SEE NOTE> 49 Drugs Of 11/27/2016 [facility] Amphetamines (Urine) Negative Abuse-Urine Screen [address] [place] [address] [phone] Barbiturates (Urine) Negative Benzodiazepines (Urine) Negative Cannabinoids (Urine) Negative Cocaine Metabolite (Urine) Negative Methadone (Urine) Negative Opiates (Urine) Negative Urine Cutoffs * 50 1 N91.2 A64 R30.0 A64 2 A negative result for either C. trachomatis and/or N. gonorrhoeae does not preclued an infection because results are dependent on adequate specimen collection, absence of inhibitors, and sufficient DNA to be detected. 3 POSSIBLE UROGENITAL CONTAMINATION. 4 ABD PAIN 5 FIRST MORNING SPECIMENS GENERALLY CONTAIN THE HIGHEST CONCENTRATION OF HCG AND ARE RECOMMENDED FOR EARLY DETECTION OF . Method: Quidel QuickVue One-Step Immunoassay 6 URINE, CLEAN CATCH 7 URINE, CLEAN CATCH 8 N91.2 A64 N91.2 A64 R30.0 A64 9 INFCE Result Units: s/co ratio Negative: < 0.8 Indeterminate: 0.8 - 0.9 Positive: > 0.9 The CDC recommends that a positive HCV antibody result be followed up with a HCV Nucleic Acid Amplification test (740518). Performed at: [address] [id number] Paraprofessional Interpreter: Jaci Wood MD, Phone: [phone] Performed at: [address] [id number] Paraprofessional Interpreter: Brigid Pedroza MD, Phone: [phone] 10 NOTE: A NON-REACTIVE RESULT INDICATES THAT HIV 1/2 ANTIBODIES HAVE NOT BEEN FOUND IN THIS PATIENT SPECIMEN. A NON-REACTIVE RESULT, HOWEVER, DOES NOT PRECLUDE PREVIOUS EXPOSURE OF INFECTION WITH HIV 1/2. Method: Uni-Gold Recombigen HIV 1/2 Rapid Immunoassay Jaco Solarsi * [place] STATE LAW PROHIBITS THE REDISCLOSURE OF THIS RESULT * * TO ANY UNAUTHORIZED [employer]. * 11 K59.00 CONSTIPATION R10.11 12 UPPER LEFT SIDE ABD PAIN 13 Method: Prachi Sigifredo Hemoccult Card 14 POSSIBLE UROGENITAL CONTAMINATION. 15 URINE, CLEAN CATCH 16 > 100,000 CFU/mL 17 R63.5 18 Performed at: [address] [id number] Paraprofessional Interpreter: Jaci Wood MD, Phone: [phone] 19 Note: Persistent reduction for 3 months or more in an eGFR <60 mL/min/1.73 m2 defines CKD. Patients with eGFR values >/=60 mL/min/1.73 m2 may also have CKD if evidence of persistent proteinuria is present. The original MDRD equation for estimated GFR is not valid for patients less than 18 years of age. Additional information may be found at www.kdoqi.org. 20 ACTH reference interval for samples collected between 7 and 10 AM. Performed at: [address] [id number] Paraprofessional Interpreter: Jaci Wood MD, Phone: [phone] 21 VOMITING, ABD PAIN 22 URINE, CLEAN CATCH 23 FIRST MORNING SPECIMENS GENERALLY CONTAIN THE HIGHEST CONCENTRATION OF HCG AND ARE RECOMMENDED FOR EARLY DETECTION OF . Method: Quidel QuickVue One-Step Immunoassay 24 Microwave Engineer: [id number] 25 IBS, CONSTIPATION, ABD PAIN 26 URINE, CLEAN CATCH 27 SENT BY , DEHYDRATION, ANOREXIA 28 IBS SHAKING EPISODE, URI 29 URINE, CLEAN CATCH 30 A negative result for either C. trachomatis and/or N. gonorrhoeae does not preclued an infection because results are dependent on adequate specimen collection, absence of inhibitors, and sufficient DNA to be detected. 31 HAD COLONOSCOPY 05/01, VERY LETHARGIC,LEFT ABD PAIN 32 URINE, CLEAN CATCH 33 A negative result for either C. trachomatis and/or N. gonorrhoeae does not preclued an infection because results are dependent on adequate specimen collection, absence of inhibitors, and sufficient DNA to be detected. 34 COLONOSCOPY RESCHEDULED 35 FIRST MORNING SPECIMENS GENERALLY CONTAIN THE HIGHEST CONCENTRATION OF HCG AND ARE RECOMMENDED FOR EARLY DETECTION OF . Method: Quidel QuickVue One-Step Immunoassay 36 K59.00 R10.9 37 INFCE Result Units: %mean normal Abnormal <41 Equivocal 41 - 67 Normal >67 Performed at: [address] [id number] Paraprofessional Interpreter: Jaci Wood MD, Phone: [phone] Performed at: [address] [id number] Paraprofessional Interpreter: Red Fernández MD, Phone: [phone] 38 Negative 0 - 19 Weak Positive 20 - 30 Moderate to Strong Positive >30 39 Negative 0 - 19 Weak Positive 20 - 30 Moderate to Strong Positive >30 40 Negative 0 - 3 Weak Positive 4 - 10 Positive >10 Tissue Transglutaminase (tTG) has been identified as the endomysial antigen. Studies have demonstr- ated that endomysial IgA antibodies have over 99% specificity for gluten sensitive enteropathy. 41 Negative 0 - 5 Weak Positive 6 - 9 Positive >9 42 Method: Sediplast Modified Westergren 43 E59.00 R10.9 44 This test was developed and its performance characteristics determined by [facility]. It has not been cleared or approved by the Food and Drug Administration. Performed at: [address] [id number] Paraprofessional Interpreter: Red Fernández MD, Phone: [phone] 45 R11.10 R10.9 46 Note: Persistent reduction for 3 months or more in an eGFR <60 mL/min/1.73 m2 defines CKD. Patients with eGFR values >/=60 mL/min/1.73 m2 may also have CKD if evidence of persistent proteinuria is present. The original MDRD equation for estimated GFR is not valid for patients less than 18 years of age. Additional information may be found at www.kdoqi.org. 47 Elevated levels of HbA1c suggest the need for more aggressive treatment of glycemia. The [place] [employer] recommends that a primary goal of therapy should be a HbA1c of <7% and that physicians should re-evaluate the treatment regimen in patients with HbA1c values consistently >8%. 48 Result confirmed by repeat analysis. 49 URINE, CLEAN CATCH 50 URINE SPECIMENS ARE SCREENED AT THE LISTED CUTOFFS DRUG CLASS INITIAL TEST LEVEL Amphetamines 1000 ng/mL Barbiturates 200 ng/mL Benzodiazepines 200 ng/mL Cannabinoids 50 ng/mL Cocaine Metabolite 300 ng/mL Methadone 300 ng/mL Opiates 300 ng/mL Any PRESUMPTIVE POSITIVE findings are UNCONFIRMED. Confirmatory testing is suggested if findings are unexpected. Please contact laboratory if confirmatory testing is desired. SPECIMENS ARE HELD FOR 72 HOURS. Procedures Date Code Description Status 01/20/2019 96652 Brief Emotional/Behav Assessment W/ Scoring Doc Per Completed Standard Inst 11/06/2018 16893 Brief Emotional/Behav Assessment W/ Scoring Doc Per Completed Standard Inst 05/01/2017 02311 Colonoscopy With Biopsy Completed 05/01/2017 13765563 Colonoscopy Completed 01/11/2017 55068 EGD With Biopsy Completed Encounters Type Date Location Provider Dx Diagnosis Office Visit 02/14/2019 Primary Care Suly Duran R55 Syncope and 3:00p Office Kishor PA collapse S81.012D Laceration without foreign body, left knee, subs encntr R53.83 Other fatigue Office Visit 02/14/2019 10:15a Orthopaedic Office Cristal, M79.644 Pain in right Cira S., finger(s) RPAC M25.572 Pain in left ankle and joints of left foot Office Visit 02/11/2019 11:30a Primary Care Angelina Chawla, N91.2 Amenorrhea, Office MS, 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 unspecified A64 Unspecified sexually transmitted disease R30.0 Dysuria K59.00 Constipation, unspecified R10.9 Unspecified abdominal pain Office Visit 02/10/2019 9:00a Meir Story MD K59.00 Constipation, unspecified R10.11 Right upper quadrant pain Office Visit 01/30/2019 1:30p Meir Story, K59.00 MD Jose unspecified Office Visit 01/20/2019 11:30a Primary Care Roger B37.2 Candidiasis of skin Office HIWOT Coley and nail R63.5 Abnormal weight gain F34.81 Disruptive mood dysregulation disorder Office Visit 11/06/2018 10:20a Primary Care Merlin F90.9 Attention- deficit Office MD Katia hyperactivity disorder, unspecified type F34.81 Disruptive mood dysregulation disorder K58.1 Irritable bowel syndrome with constipation Office Visit 10/29/2018 1:15p Meir Story MD K59.00 Constipation, unspecified R11.2 Nausea with vomiting, unspecified Office Visit 09/18/2018 9:00a Primary Care Angelina Chawla, L50.1 Idiopathic Office MS, 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 urticaria F34.81 Disruptive mood dysregulation disorder R14.0 Abdominal distension (gaseous) F90.9 Attention-deficit hyperactivity disorder, unspecified type Z30.09 Encounter for oth general coun and advice on contraception Office Visit 07/09/2018 9:30a Primary Care Office Angelina Chawla, MS, K92.1 Melena 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 R19.7 Diarrhea, unspecified Z23 Encounter for immunization Office Visit 05/17/2018 9:30a Primary Care Angelina Chawla, R19.7 Diarrhea, Office MS, 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 unspecified F34.81 Disruptive mood dysregulation disorder E86.0 Dehydration Office Visit 04/03/2018 9:15a YANCI Curran MD E86.0 Dehydration K58.1 Irritable bowel syndrome with constipation R10.9 Unspecified abdominal pain R12 Heartburn Office Visit 02/01/2018 9:45a YANCI Curran MD K58.1 Irritable bowel syndrome with constipation R10.9 Unspecified abdominal pain R12 Heartburn K62.5 Hemorrhage of anus and rectum Office Visit 01/10/2018 12:00p Primary Care Katia Boyer, R23.9 Unspecified skin Office MD changes K58.1 Irritable bowel syndrome with constipation R51 Headache Office Visit 11/14/2017 11:40a Primary Care Katia Boyer, K58.1 Irritable bowel Office MD syndrome with constipation F44.5 Conversion disorder with seizures or convulsions L84 Corns and callosities Office Visit 10/03/2017 9:45a YANCI Curran MD K58.1 Irritable bowel syndrome with constipation R10.9 Unspecified abdominal pain R12 Heartburn Office Visit 07/31/2017 10:40a Primary Care Katia Boyer, H66.91 Otitis media, Office MD unspecified, right ear Office Visit 07/06/2017 2:40p Primary Care Katia Boyer, K59.00 Constipation, Office MD unspecified F34.81 Disruptive mood dysregulation disorder Z23 Encounter for immunization B35.4 Tinea corporis Office Visit 04/04/2017 3:30p YANCI Curran MD R10.9 Unspecified abdominal pain K59.00 Constipation, unspecified K29.70 Gastritis, unspecified, without bleeding Office Visit 12/22/2016 2:45p GI Xander Curran MD K59.00 Constipation, unspecified R11.10 Vomiting, unspecified R10.9 Unspecified abdominal pain Office Visit 12/18/2016 10:40a Primary Care Katia Boyer, F44.5 Conversion Office MD disorder with seizures or convulsions R10.11 Right upper quadrant pain R11.10 Vomiting, unspecified K59.00 Constipation, unspecified Office Visit 11/27/2016 1:20p Primary Care Katia Boyer, F44.5 Conversion Office MD disorder with seizures or convulsions R10.11 Right upper quadrant pain R11.10 Vomiting, unspecified Plan of Treatment Future Appointment(s):02/25/2019 11:30 am - Angelina Chawla MS, ARNOLD, CNM at Primary Care Eyzhvq5603/17/2019 10:45 am - Meir Degroot MD at 03/18/2019 1:30 pm - Angelina Chawla MS, ARNOLD, CNM at Primary Care Iavtgo6902/10/2019 - Meir Degroot MDK59.00 Constipation, ihfqmvxhjnaB90.11 Right upper quadrant painComments:sonogramlabsFollow up:3 weeks
--- OUTSIDE RECORDS SUMMARY | 2019-03-07 10:27 | XMS REPORT | Continuity of Care Document ---
:2000 External Reference #:[id number] Author Name Yessy Woods Care Team Providers Name Role Phone Katia Boyer MD Primary Care Physician Unavailable Payers Date Identification Numbers Payment Provider Subscriber Expires: 2019 Policy Number: 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 Hand Dominance Left-handed ETOH Use Denies alcohol use Tobacco Use Start: Unknown Patient has never smoked Smoking Status Reviewed: 02/25/19 Patient has never smoked Allergies, Adverse Reactions, Alerts Active Allergies Reaction Severity Comments Date Erythromycin 11/27/2016 Amoxicillin 11/27/2016 Adhesive Hives 02/25/2019 Latex rash 02/25/2019 Medications Active Medications SIG Qnty Indications Ordering Provider Date Dok 2 PO Qam Djafari, 100mg Capsules MD Carmel Ra Senna 2 at hs Djafari, 8.6mg Tablets MD Carmel Loratadine 1 daily Kell Anderson, 10mg Tablets PA Strattera 1 Qam Kell Anderson, 80mg Capsules PA Ranitidine HCL 1 bid Djafsanjuana, 150mg MD Carmel Tablets Ondansetron HCL every 8 hours 90tabs Merlin, Katia, MD 4mg Tablets as needed Linzess once a day Xander Curran M.D. 145mcg Capsules Fluoxetine HCL once a day Katia Boyer MD 20mg Capsules Atomoxetine HCL once daily Katia Boyer MD 40mg Capsules Polyethylene Glycol as needed Xander Curran M.D. 3350 3350NF Packet Tri-Linyah 1 by mouth Unknown 0.18/0.215/0.25 every day mg-35 mcg Tablets Amitriptyline HCL aXnder Curran M.D. 10mg Tablets History Medications Tylenol PM Extra Strength 1 tab by mouth every Unknown - night as needed 500-25mg Tablets Vital Signs Date Vital Result Comment 02/25/2019 10:24am Height 63.75 inches 5'3.75" Weight 188.38 lb Heart Rate 88 /min apical BP Systolic Sitting 100 mmHg BP Diastolic Sitting 70 mmHg Respiratory Rate 20 /min BMI (Body Mass Index) 32.6 kg/m2 05/28/2018 10:06am Height 63.75 inches 5'3.75" Weight 148.00 lb Heart Rate 80 /min BP Systolic Sitting 118 mmHg BP Diastolic Sitting 78 mmHg BMI (Body Mass Index) 25.6 kg/m2 Procedures Date Code Description Status 12/18/2016 84163 EEG Recording Awake & Drowsy Completed Encounters Type Date Location Provider Dx Diagnosis Office Visit 05/28/2018 [facility] Abraham Cameron, R25.8 Other abnormal 10:15a involuntary movements Plan of Treatment 02/25/2019 - Abraham Cameron, MDR25.8 Other abnormal involuntary movementsComments :Discussed that her spells are likely stress related and that the treatment would be through psychiatrist and psychologists and to consider things such as mindfulness and cognitive behaivoral therapy. Neurologic workup complete at this point with normal ambulatory eeg capturing events and normal mri but I will be glad to see for changes.Follow up:as needed
--- OUTSIDE RECORDS SUMMARY | 2019-03-07 10:27 | XMS REPORT | Continuity of Care Document ---
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 Katai Boyer MD Primary Care Physician Unavailable Payers Date Identification Numbers Payment Provider Subscriber Policy Number: [id number] Medicaid Nasir Ramoston PayID: [id number] [address] [place] [id number] Effective: 2017 Policy Number: [id number] [place] Medicaid Nasir Quinn Expires: 2019 PayID: [id number] [address] [place] [address] Expires: 2018 Policy Number: [id number] Medicaid Nasir Ramoston PayID: [id number] [address] [place], [place] [address] Problems Active Problems Provider Date Constipation Xander [...] Mother Home Environment Lives with Mother Occupation [employer] Work Status Not Currently Working Work Status Part-Time ETOH Use Denies alcohol use Tobacco Use Start: Unknown Patient denies history of smoking Recreational Drug Use Denies Drug Use Smoking Status Reviewed: 02/11/19 Patient denies history of smoking Allergies, Adverse Reactions, Alerts Active Allergies Reaction Severity Comments Date Erythromycin throat swells 11/27/2016 Augmentin rash 11/27/2016 Bactrim 12/22/2016 Latex 12/22/2016 Zithromax 12/22/2016 Adhesives Medications Active Medications SIG Qnty Indications Ordering Date Provider Nystatin Apply to 60gm B37.2 Katia Boyer, 01/20/2019 inframammary area [id number] Powder bid Lactulose 30 ml by mouth 900ml K59.00 Zane, 10/29/2018 20GM/30ML twice a day as MD Meir Solution needed Simethicone take one every 6 120units R14.0 Gagen, 09/18/2018 80mg hours as needed for Angelina, MS, Chewtabs bloating. TOOL CHASER-C, CNM Sara Allergy Take one every day 90tabs L50.1 Gagen, 09/18/2018 180mg Angelina, MS, Tablets TOOL CHASER-C, CNM Amitriptyline HCL 1 tab by mouth 90tabs R10.9 Zane, 02/01/2018 every day every MD Meir 10mg Tablets night Miralax 1 packet by mouth 90units K58.1 Zane, 02/01/2018 3350NF Packet every day MD Meir Sleepaid 1 tab at bedtime Katia Boyer, 01/10/2018 25mg Tablets MD Fluoxetine HCL 1 by mouth every 30caps Katia Boyer, 07/06/2017 (PMDD) day MD 20mg Capsules Miralax 3 cap by mouth 3Bottles Xander Curran MD 02/21/2017 3350NF Powder every day every morning Tri-Linyah take as directed on 28tabs Katia Boyer, 12/12/2016 pack 0.18/0.215/0.25 mg-35 mcg Tablets Colace 2 tab by mouth 60caps Gagen, 100mg Capsules daily MS Angelina, TOOL CHASER-C, CNM Linzess 1 by mouth every 90caps Zane, 145mcg day every morning MD Meir Capsules Ra Senna 1 tab as needed for 30tabs Katia Boyer, 8.6mg constipation MD Tablets Tylenol 2 tab po prn Unknown 500mg History Medications Sertraline HCL 1 tab by mouth 60tabs F34.81 Katia Boyer, 11/06/2018 - 25mg every night x 2 01/20/2019 Tablets weeks then increase to two [...] Angelina, 01/20/2019 Capsules every day for 2 TOOL CHASER-C, CNM weeks then stop Clindamycin HCL 1 tab by mouth 30caps Katia Boyer, 07/31/2017 - 300mg every 8 hours for Unknown Capsules 10 days Clotrimazole apply to affected 28gm Katia Boyer, 07/06/2017 - Anti-Fungal area twice a day MD Unknown 1% Cream Tylenol Extra 1-2 tabs by mouth 60tabs Katia Boyer, 07/06/2017 - Strength every 12 hours as 04/03/2018 500mg needed Tablets Fluoxetine HCL 1 by mouth every 30tabs MerlinKatia schneider, 05/17/2017 - 10mg day 07/06/2017 Tablets Dicyclomine [...] day Unknown Capsules Dok 2 PO Qam Djafari, - 100mg Capsules MD Carmel Unknown Ranitidine HCL 1 bid Djafari, - 150mg MD Carmel Unknown Tablets Ondansetron HCL every 8 hours as 90tabs MerlinKatia schneider, - 4mg needed MD Unknown Tablets Tylenol PM Extra 1 tab by mouth 30tabs Katia Boyer, - Strength every night as 01/10/2018 500-25mg needed Tablets OCP Unknown - 12/12/2016 Pantoprazole Sodium 1 by mouth bid Unknown - Unknown 20mg Tablets DR Belle 1 tab every 30caps MerlinAl schneidera, - 80mg morning 09/12/2017 Capsules Loratadine 1 tab daily 30tabs Merlin Katia, - 10mg MD 09/18/2018 Tablets Immunizations CPT Code Status Date Vaccine Lot # [id number] Given 07/09/2018 Influenza Virus Vaccine, Quadrivalent, 36 Mos+, [id number] Given 07/06/2017 Influenza Virus Vaccine Quadrivalent Iiv4 Split [id number] Preser Free Id Vital Signs Date Vital Result Comment 02/11/2019 11:39am BP Systolic Sitting Left Arm 114 mmHg BP Diastolic Sitting Left Arm 84 mmHg Body Temperature 98.2 F Heart Rate 82 /min Respiratory Rate 18 /min Height 64 inches 5'4" Weight 183.00 lb BMI (Body Mass Index) 31.4 kg/m2 BSA (Body Surface Area) 1.88 m2 [place] body weight in kilograms 54 kg O2 % BldC Oximetry 98 % Ra 02/10/2019 9:10am BP Systolic Sitting Left Arm 105 mmHg BP Diastolic Sitting Left Arm 79 mmHg Heart Rate 94 /min Respiratory Rate 16 /min Height 64 inches 5'4" Weight 185.00 lb BMI (Body Mass Index) 31.8 kg/m2 BSA (Body Surface Area) 1.89 m2 [place] body weight in kilograms 54 kg O2 % BldC Oximetry 98 % 01/30/2019 1:52pm BP Systolic Sitting Left Arm 102 mmHg BP Diastolic Sitting Left Arm 77 mmHg Heart Rate 93 /min Respiratory Rate 16 /min Height 64 inches 5'4" Weight 183.12 lb BMI (Body Mass Index) 31.4 kg/m2 BSA (Body Surface Area) 1.88 m2 [place] body weight in kilograms 54 kg O2 % BldC Oximetry 98 % 01/20/2019 11:42am BP Systolic Sitting Left Arm 114 mmHg BP Diastolic Sitting Left Arm 80 mmHg Body Temperature 98.2 F Heart Rate 102 /min Respiratory Rate 18 /min Height 64 inches 5'4" Weight 181.00 lb BMI (Body Mass Index) 31.1 kg/m2 BSA (Body Surface Area) 1.88 m2 [place] body weight in kilograms 54 kg O2 % BldC Oximetry 98 % 11/06/2018 10:39am BP Systolic Sitting Left Arm 102 mmHg BP Diastolic Sitting Left Arm 64 mmHg Heart Rate 106 /min Respiratory Rate 18 /min Height 64 inches 5'4" Weight 168.00 lb BMI (Body Mass Index) 28.8 kg/m2 BSA (Body Surface Area) 1.82 m2 [place] body weight in kilograms 54 kg O2 % BldC Oximetry 98 % ra 11/06/2018 10:32am Body Temperature 99.1 F Height 64 inches 5'4" Weight 168.00 lb BMI (Body Mass Index) 28.8 kg/m2 BSA (Body Surface Area) 1.82 m2 [place] body weight in kilograms 54 kg 10/29/2018 1:29pm BP Systolic 109 mmHg BP Diastolic 83 mmHg Body Temperature 99.4 F Heart Rate 105 /min Respiratory Rate 16 /min Height 64 inches 5'4" Weight 168.12 lb BMI (Body Mass Index) 28.9 kg/m2 BSA (Body Surface Area) 1.82 m2 [place] body weight in kilograms 54 kg O2 [...] kg/m2 BSA (Body Surface Area) 1.80 m2 [place] body weight in kilograms 54 kg O2 % BldC Oximetry 98 % ra 07/09/2018 9:21am BP Systolic Sitting Left Arm 116 mmHg BP Diastolic Sitting Left Arm 77 mmHg Body Temperature 99.1 F Heart Rate 116 /min Respiratory Rate 20 /min Height 64 inches 5'4" Weight 150.00 lb BMI (Body Mass Index) 25.7 kg/m2 BSA (Body Surface Area) 1.73 m2 [place] body weight in kilograms 54 kg O2 % BldC Oximetry 99 % 05/17/2018 9:38am BP Systolic Sitting Right Arm 119 mmHg BP Diastolic Sitting Right Arm 81 mmHg Body Temperature 97.9 F Heart Rate 100 /min Respiratory Rate 12 /min Height 64 inches 5'4" Weight 149.00 lb BMI (Body Mass Index) 25.6 kg/m2 BSA (Body Surface Area) 1.73 m2 [place] body weight in kilograms 54 kg O2 % BldC Oximetry 100 % 04/03/2018 9:46am BP Systolic Sitting Left Arm 110 mmHg BP Diastolic Sitting Left Arm 80 mmHg Heart Rate 90 /min Respiratory Rate 16 /min Height 64 inches 5'4" Weight 138.00 lb BMI (Body Mass Index) 23.7 kg/m2 BSA (Body Surface Area) 1.67 m2 [place] body weight in kilograms 54 kg O2 % BldC Oximetry 98 % 02/01/2018 10:10am BP Systolic Sitting Left Arm 103 mmHg BP Diastolic Sitting Left Arm 78 mmHg Heart Rate 96 /min Respiratory Rate 18 /min Height 64 inches 5'4" Weight 131.00 lb BMI (Body Mass Index) 22.5 kg/m2 BSA (Body Surface Area) 1.63 m2 [place] body weight in kilograms 54 kg Height Percentile 45 % Weight Percentile 55th 01/10/2018 12:00pm BP Systolic Sitting Left Arm 104 mmHg BP Diastolic Sitting Left Arm 72 mmHg Heart Rate 96 /min Respiratory Rate 16 /min Height 64 inches 5'4" Weight 131.00 lb BMI (Body Mass Index) 22.5 kg/m2 BSA (Body Surface Area) 1.63 m2 [place] body weight in kilograms 54 kg Height Percentile 45 % Weight Percentile 55th 11/14/2017 12:05pm BP Systolic Sitting Left Arm 113 mmHg BP Diastolic Sitting Left Arm 80 mmHg Heart Rate 101 /min Height 64 inches 5'4" Weight 132.00 lb BMI (Body Mass Index) 22.7 kg/m2 BSA (Body Surface Area) 1.64 m2 [place] body weight in kilograms 54 kg Height Percentile 45 % Weight Percentile 57th 10/03/2017 10:08am BP Systolic Sitting Left Arm 120 mmHg BP Diastolic Sitting Left Arm 70 mmHg Heart Rate 102 /min Respiratory Rate 16 /min Height 64 inches 5'4" Weight 132.00 lb BMI (Body Mass Index) 22.7 kg/m2 BSA (Body Surface Area) 1.64 m2 [place] body weight in kilograms 54 kg Height Percentile 45 % Weight Percentile 58th 07/31/2017 10:53am BP Systolic Sitting Left Arm 120 mmHg BP Diastolic Sitting Left Arm 80 mmHg Body Temperature 98.9 F Heart Rate 90 /min Respiratory Rate 16 /min Height 64 inches 5'4" Weight 137.00 lb BMI (Body Mass Index) 23.5 kg/m2 BSA (Body Surface Area) 1.67 m2 [place] body weight in kilograms 54 kg Height Percentile 45 % Weight Percentile 66th 07/06/2017 2:30pm BP Systolic Sitting Right Arm 113 mmHg BP Diastolic Sitting Right Arm 74 mmHg Heart Rate 109 /min Height 64 inches 5'4" Weight 132.00 lb BMI (Body Mass Index) 22.7 kg/m2 BSA (Body Surface Area) 1.64 m2 [place] body weight in kilograms 54 kg Height Percentile 46 % Weight Percentile 59th 04/04/2017 3:44pm BP Systolic Sitting Left Arm 118 mmHg BP Diastolic Sitting Left Arm 78 mmHg Heart Rate 89 /min Respiratory Rate 16 /min Height 64 inches 5'4" Weight 136.00 lb BMI (Body Mass Index) 23.3 kg/m2 BSA (Body Surface Area) 1.66 m2 [place] body weight in kilograms 54 kg 12/22/2016 3:27pm BP Systolic Sitting Left Arm 110 mmHg BP Diastolic Sitting Left Arm 80 mmHg Heart Rate 76 /min Respiratory Rate 16 /min Height 64 inches 5'4" Weight 138.00 lb BMI (Body Mass Index) 23.7 kg/m2 BSA (Body Surface Area) 1.67 m2 [place] body weight in kilograms 54 kg Height [...] kg/m2 BSA (Body Surface Area) 1.66 m2 [place] body weight in kilograms 54 kg Height Percentile 42 % Weight Percentile 69th Results Test Date Facility Test Result H/L Range Note Urine Dipstick 02/11/2019 [facility] Color yellow Yellow Ua Clarity clear Clear Ua Leuko trace Negative Ua Nitrite negative Negative Ua Urobilinogen 0.2 0.2 - 1.0 E.U./dL Ua Protein negative Negative Ua PH 7.0 6.5-7.5 Ua Blood negative Negative Ua Specific [place] 1.015 1.010-1.030 Ua Ketones negative Negative Ua Bilirubin negative Negative Ua Glucose negative Negative Liver Function Tests 02/10/2019 [facility] Total Protein 8.0 g/dL N 6.4-8.2 1 [address] [place] [address] [phone] Albumin 3.5 g/dL N 3.4-5.0 Globulin 4.5 g/dL High 1.9-4.3 Alb/Glob 0.8 ratio Bilirubin,Total 0.2 mg/dL N 0.2-1.0 Bilirubin,Direct < 0.1 mg/dL N 0.0-0.2 Bilirubin,Indirect 0.1 mg/dL N 0.0-0.9 Sgot/Ast 19 U/L N 15-37 SGPT/Alt 25 U/L N 12-78 Alkaline Phosphatase 115 U/L N 45-117 Laboratory test finding 02/10/2019 [facility] Amylase 74 U/L N 25-115 [address] [place] [address] [phone] Lipase 96 U/L N 56-289 Occult 01/22/2019 [facility] Stool Occult POSITIVE Abnormal Negative 2, Blood,Stool [address] [facility] Blood-Single 3 [place] [address] Spec [phone] Ua RFX Micro 01/22/2019 [facility] Urine Color YELLOW Yellow & Culture II [address] [place] [address] [phone] Urine Clarity CLOUDY Clear Urine Glucose - Dipstick NEGATIVE mg/dL Negative Urine Bilirubin - Dipstick NEGATIVE Negative Urine Ketone NEGATIVE mg/dL Negative Urine Specific [place] 1.025 N 1.010-1.030 Urine Blood LARGE Abnormal Negative Urine PH 6.5 N 6.5-7.5 Urine Protein - Dipstick TRACE mg/dL Negative Urine Urobilinogen - Dipstick 0.2 E.U./dL N 0.2-1.0 Urine Nitrite - Dipstick NEGATIVE Negative Urine Leuk Esterase TRACE Abnormal Negative Urine RBC 10-20 rbc/hpf High 0-2 Urine WBC 5-10 wbc/hpf 0-7 Urine Epithelial Cells MODERATE /lpf None Seen 4 Urine Bacteria MODERATE Abnormal None Seen Source: URINE, CLEAN CAT <SEE NOTE> 5 Urine Culture 01/22/2019 [facility] Urine Culture URETHRAL MARGARITA [address] [place], [place] [id number] [phone] Quantity > 100,000 CFU/mL 6 Laboratory test 01/21/2019 [facility] Cortisol,Am 18.7 6.2-19.4 7, [address] g/dL [place], [place] [id number] [phone] Comprehensive 01/21/2019 [facility] Glucose 78 mg/dL N 74-106 Metabolic Panel [address] [place] [address] [phone] BUN 9 mg/dL N 7-18 Creatinine 0.8 mg/dL 0.6-1.3 Glom Filtration Rate, Estimate >60 mL/min >60 If >60 mL/min >60 9 BUN/Creat 11.2 ratio Sodium 137 mmol/L N [...] U/L High 45-117 CBC W/Automated Diff 01/21/2019 [facility] White Blood 6.9 K/uL N 3.1-10.[address] Count [place], [place] [address] [phone] Red Blood Count 4.42 M/uL N 3.90-5.40 [...] 28.0-68.0 Lymph % 40.4 % N 20.0-42.0 Mcdonald % 6.9 % N 4.3-13.2 Eo% 2.2 % N 0.0-6.6 Bas% 0.9 % N 0.0-1.1 Immature Grans 0.3 % N 0.0-5.0 NRBC % 0.0 /100WBC < 10/ 100 WBC Neut# 3.38 K/uL N 1.8-7.0 Lymph # 2.77 K/uL N 1.0-4.0 Mcdonald # 0.47 K/uL N 0.3-0.9 Eos # 0.15 K/uL N 0.0-0.5 Baso # 0.06 K/uL N 0.0-0.1 Immature Grans Absolute 0.02 K/uL NRBC # 0.00 K/uL Laboratory test 01/21/2019 [facility] Acth,Plasma 29.4 pg/mL 7.2-63.3 10 finding [address] [place] [address] [phone] Ua RFX Micro & 11/10/2018 [facility] Urine Color YELLOW Yellow 11 Culture II [address] [place] [address] [phone] Urine Clarity CLOUDY Clear Urine Glucose - Dipstick NEGATIVE mg/dL Negative Urine Bilirubin - Dipstick NEGATIVE Negative Urine Ketone NEGATIVE mg/dL Negative Urine Specific [place] 1.015 N 1.010-1.030 Urine Blood NEGATIVE Negative Urine PH 8.5 High 6.5-7.5 Urine Protein - Dipstick TRACE mg/dL Negative Urine Urobilinogen - Dipstick 0.2 E.U./dL N 0.2-1.0 Urine Nitrite - Dipstick NEGATIVE Negative Urine Leuk Esterase NEGATIVE Negative Source: URINE, CLEAN CAT <SEE NOTE> 12 Laboratory test 11/10/2018 [facility] Urine HCG NEGATIVE Negative 13 finding [address] [facility] (Qualitative) [place] [address] [phone] Laboratory test 07/20/2018 [facility] Laboratory Rapid Strep Negative Negative 14 finding [phone] Molecular CBC W/Automated 06/15/2018 [facility] White Blood Count 7.1 K/uL N 3.1-10.7 15 Diff [address] [place] [address] [phone] Red Blood Count 4.28 M/uL N 3.90-5.40 [...] 28.0-68.0 Lymph % 42.9 % High 20.0-42.0 Mcdonald % 5.2 % N 4.3-13.2 Eo% 3.1 % N 0.0-6.6 Bas% 0.4 % N 0.0-1.1 Neut# 3.42 K/uL N 1.8-7.0 Lymph # 3.04 K/uL N 1.0-4.0 Mcdonald # 0.37 K/uL N 0.3-0.9 Eos # 0.22 K/uL N 0.0-0.5 Baso # 0.03 K/uL N 0.0-0.1 Ua RFX Micro & Culture 06/15/2018 [facility] Urine Color YELLOW Yellow II [address] [place] [address] [phone] Urine Clarity CLEAR Clear Urine Glucose - Dipstick NEGATIVE mg/dL Negative Urine Bilirubin - Dipstick NEGATIVE Negative Urine Ketone NEGATIVE mg/dL Negative Urine Specific [place] >=1.030 N 1.010-1.030 Urine Blood NEGATIVE Negative Urine PH 6.0 Low 6.5-7.5 Urine Protein - Dipstick TRACE mg/dL Negative Urine Urobilinogen - Dipstick 0.2 E.U./dL N 0.2-1.0 Urine Nitrite - Dipstick NEGATIVE Negative Urine Leuk Esterase NEGATIVE Negative Source: URINE, CLEAN CAT <SEE NOTE> 16 CBS W/Automated 04/03/2018 [facility] White Blood 5.1 K/uL N 3.1-10.7 [address] [place] [address] [phone] Red Blood Count 3.89 M/uL Low 3.90-5.40 [...] 28.0-68.0 Lymph % 46.7 % High 20.0-42.0 Mcdonald % 7.6 % N 4.3-13.2 Eo% 0.6 % N 0.0-6.6 Bas% 0.8 % N 0.0-1.1 Neut# 2.28 K/uL N 1.8-7.0 Lymph # 2.40 K/uL N 1.0-4.0 Mcdonald # 0.39 K/uL N 0.3-0.9 Eos # 0.03 K/uL N 0.0-0.5 Baso # 0.04 K/uL N 0.0-0.1 CBS W/Automated 11/23/2017 [facility] White Blood 6.6 K/uL N 3.1-10.7 [address] [place] [address] [phone] Red Blood Count 4.51 M/uL N 3.90-5.40 [...] 28.0-68.0 Lymph % 32.1 % N 20.0-42.0 Mcdonald % 7.3 % N 4.3-13.2 Eo% 0.6 % N 0.0-6.6 Bas% 0.5 % N 0.0-1.1 Neut# 3.94 K/uL N 1.8-7.0 Lymph # 2.12 K/uL N 1.0-4.0 Mcdonald # 0.48 K/uL N 0.3-0.9 Eos # 0.04 K/uL N 0.0-0.5 Baso # 0.03 K/uL N 0.0-0.1 Ua RFX Micro & Culture 11/23/2017 [facility] Urine Color YELLOW Yellow II [address] [place] [address] [phone] Urine Clarity CLEAR Clear Urine Glucose - Dipstick NEGATIVE mg/dL Negative Urine Bilirubin - Dipstick NEGATIVE Negative Urine Ketone NEGATIVE mg/dL Negative Urine Specific [place] <=1.005 Low 1.010-1.030 Urine Blood NEGATIVE Negative Urine PH 6.0 Low 6.5-7.5 Urine Protein - Dipstick NEGATIVE mg/dL Negative Urine Urobilinogen - Dipstick 0.2 E.U./dL N 0.2-1.0 Urine Nitrite - Dipstick NEGATIVE Negative Urine Leuk Esterase NEGATIVE Negative Source: URINE, CLEAN CAT <SEE NOTE> 19 Chlamydia/GC 11/23/2017 [facility] Chlamydia Negative Negative Mickie, Urine [address] Trachomatis,[place] [address] -PCR [phone] Neisseria Gonorrhoeae,Ur -PCR Negative Negative 20 Ua Routine 05/03/2017 [facility] Urine Color YELLOW Yellow 21 [address] [place] [address] [phone] Urine Clarity CLEAR Clear Urine Glucose - Dipstick NEGATIVE mg/dL Negative Urine Bilirubin - Dipstick NEGATIVE Negative Urine Ketone NEGATIVE mg/dL Negative Urine Specific [place] 1.010 N 1.010-1.030 Urine Blood SMALL Abnormal [...] Seen Source: URINE, CLEAN CAT <SEE NOTE> 22 Chlamydia/GC 05/03/2017 [facility] Chlamydia Negative Negative Mickie, Urine [address] Trachomatis,[place] [address] -Mickie [phone] Neisseria Gonorrhoeae,Ur -Mickie Negative Negative 23 CBS W/Automated Diff 05/03/2017 [facility] White Blood 6.8 K/uL N 3.1-10.[address] [place] [address] [phone] Red Blood Count 4.17 M/uL N 3.90-5.40 [...] 28.0-68.0 Lymph % 30.9 % N 20.0-42.0 Mcdonald % 6.0 % N 4.3-13.2 Eo% 1.3 % N 0.0-6.6 Bas% 0.6 % N 0.0-1.1 Neut# 4.18 K/uL N 1.8-7.0 Lymph # 2.11 K/uL N 1.0-4.0 Mcdonald # 0.41 K/uL N 0.3-0.9 Eos # 0.09 K/uL N 0.0-0.5 Baso # 0.04 K/uL N 0.0-0.1 Laboratory 05/01/2017 [facility] Urine HCG NEGATIVE Negative 24, 25 test finding [address] (Qualitative) [place], [place] [id number] [phone] Celiac 12/25/2016 [facility] Immunoglobulin A 348 mg/dL 87-352 26 Disease Comp [address] [place] [address] [phone] Antigliadin Abs, IgG 2 units 0-19 27 Antigliadin Abs, IgA 6 units 0-19 28 Endomysial IgA Antibody Negative Negative t-Transglutaminase IgA <2 U/mL 0-3 29 t-Transglutaminase IgG <2 U/mL 0-5 30 CRP (High 12/25/2016 [facility] C-Reactive 0.87 mg/L <3.0 Sensitivity) [address] Protein,Cardiac [place], [place] [address] [phone] Reflex add FT3? Y Reflex add FT4? Y Laboratory test 12/25/2016 [facility] Sedimentation Rate 13 mm/hr N 0-20 [address] [place] [address] [phone] Laboratory test 12/25/2016 [facility] C1 Esterase 70 %meanno . [address] [place] [place] [address] [phone] C1 Esterase Inhibitor 25 mg/dL 21-39 Complement C4, Serum 31 mg/dL 14-44 TSH W/Free T4 12/25/2016 [facility] Thyroid Stim 1.39 uIU/mL N 0.30-4.[address] Hormone [place], [place] [address] [phone] Reflex add FT3? Y Reflex add FT4? Y Laboratory 12/23/2016 [facility] Porphobilinogen,QN,Random 0.0 mg/L 0.0-2.0 33, test [address] Urin 34 [place] [address] [phone] Drugs Of 11/27/2016 [facility] Amphetamines (Urine) Negative 35 Abuse-Urine [address] Screen 7 [place] [address] [phone] Barbiturates (Urine) Negative Benzodiazepines (Urine) Negative Cannabinoids (Urine) Negative Cocaine Metabolite (Urine) Negative Methadone (Urine) Negative Opiates (Urine) Negative Urine Cutoffs * 36 Ua Routine 11/27/2016 [facility] Urine Color YELLOW Yellow [address] [place], [place] [address] [phone] Urine Clarity CLEAR Clear Urine Glucose - Dipstick NEGATIVE mg/dL Negative Urine Bilirubin - Dipstick NEGATIVE Negative Urine Ketone NEGATIVE mg/dL Negative Urine Specific [place] <=1.005 Low 1.010-1.030 Urine Blood TRACE Negative [...] Negative Source: URINE, CLEAN CAT <SEE NOTE> 37 Laboratory 11/27/2016 [facility] HCG,Serum NEGATIVE (Negative) test finding [address] (Qualitative) [place], [place] [address] [phone] Vitamin B12 11/27/2016 [facility] Vitamin B12 363 pg/mL N 193-[address] [place], [place] [address] [phone] Folic Acid 32.3 ng/mL High 3.1-17.5 38 Laboratory test 11/27/2016 [facility] Magnesium 2.4 N 1.8-2.[address] mg/dL [place], [place] [address] [phone] Glycohemoglobin 11/27/2016 [facility] Glycohemoglobin 5.0 % N 4.2-6.[address] (A1c) [place], [place] [address] [phone] eAG 97 mg/dL Laboratory test 11/27/2016 [facility] Thyroid Stim 2.21 uIU/mL N 0.30-4.[address] Hormone [place], [place] [address] [phone] Free T4 0.88 ng/dL N 0.76-1.46 CBS W/Automated Diff 11/27/2016 [facility] White Blood 5.4 K/uL N 3.1-10.[address] [place] [address] [phone] Red Blood Count 4.65 M/uL N 3.90-5.40 [...] 28.0-68.0 Lymph % 42.8 % High 20.0-42.0 Mcdonald % 7.2 % N 4.3-13.2 Eo% 0.9 % N 0.0-6.6 Bas% 0.6 % N 0.0-1.1 Neut# 2.61 K/uL N 1.8-7.0 Lymph # 2.30 K/uL N 1.0-4.0 Mcdonald # 0.39 K/uL N 0.3-0.9 Eos # 0.05 K/uL N 0.0-0.5 Baso # 0.03 K/uL N 0.0-0.1 Comprehensive Metabolic 11/27/2016 [facility] Glucose 83 mg/dL N 74-[address] [place], [place] [address] [phone] BUN 10 mg/dL N 7-18 Creatinine 0.7 mg/dL N 0.6-1.3 Glom Filtration Rate, Estimate >60 mL/min >60 If >60 mL/min >60 40 BUN/Creat 14.2 ratio Sodium 140 mmol/L N [...] 12-78 Alkaline Phosphatase 82 U/L N 45-117 1 K59.00 CONSTIPATION R10.11 2 UPPER LEFT SIDE ABD PAIN 3 Method: [employer] [place] Hemoccult Card 4 POSSIBLE UROGENITAL CONTAMINATION. 5 URINE, CLEAN CATCH 6 > 100,000 CFU/mL 7 R63.5 8 Performed at: [address] [id number] Barrel Line Operator: Jaci Wood MD, Phone: [phone] Note: Persistent reduction for 3 months or more in an eGFR <60 mL/min/1.73 m2 defines CKD. Patients with eGFR values >/=60 mL/min/1.73 m2 may also have CKD if evidence of persistent proteinuria is present. The original MDRD equation for estimated GFR is not valid for patients less than 18 years of age. Additional information may be found at www.kdoqi.org. 10 ACTH reference interval for samples collected between 7 and 10 AM. Performed at: [address] [id number] Barrel Line Operator: Jaci Wood MD, Phone: [phone] 11 VOMITING, ABD PAIN 12 URINE, CLEAN CATCH 13 FIRST MORNING SPECIMENS GENERALLY CONTAIN THE HIGHEST CONCENTRATION OF HCG AND ARE RECOMMENDED FOR EARLY DETECTION OF . Method: Quidel QuickVue One-Step Immunoassay 14 Clinical Applications Manager: [id number] IBS, CONSTIPATION, ABD PAIN 16 URINE, CLEAN CATCH 17 SENT BY , DEHYDRATION, ANOREXIA 18 IBS SHAKING EPISODE, URI 19 URINE, CLEAN CATCH 20 A negative result for either C. trachomatis and/or N. gonorrhoeae does not preclued an infection because results are dependent on adequate specimen collection, absence of inhibitors, and sufficient DNA to be detected. 21 HAD COLONOSCOPY 05/01, VERY LETHARGIC,LEFT ABD PAIN 22 URINE, CLEAN CATCH 23 A negative result for either C. trachomatis and/or N. gonorrhoeae does not preclued an infection because results are dependent on adequate specimen collection, absence of inhibitors, and sufficient DNA to be detected. 24 COLONOSCOPY RESCHEDULED 25 FIRST MORNING SPECIMENS GENERALLY CONTAIN THE HIGHEST CONCENTRATION OF HCG AND ARE RECOMMENDED FOR EARLY DETECTION OF . Method: Quidel QuickVue One-Step Immunoassay 26 K59.00 R10.9 27 Negative 0 - 19 Weak Positive 20 - 30 Moderate to Strong Positive >30 28 Negative 0 - 19 Weak Positive 20 - 30 Moderate to Strong Positive >30 29 Negative 0 - 3 Weak Positive 4 - 10 Positive >10 Tissue Transglutaminase (tTG) has been identified as the endomysial antigen. Studies have demonstr- ated that endomysial IgA antibodies have over 99% specificity for gluten sensitive enteropathy. 30 Negative 0 - 5 Weak Positive 6 - 9 Positive >9 31 Method: Sediplast Modified Westergren 32 INFCE Result Units: %mean normal Abnormal <41 Equivocal 41 - 67 Normal >67 Performed at: [address] [id number] Barrel Line Operator: Jaci Wood MD, Phone: [phone] Performed at: [address] [id number] Barrel Line Operator: Red Fernández MD, Phone: [phone] 33 E59.00 R10.9 34 This test was developed and its performance characteristics determined by [employer]. It has not been cleared or approved by the Food and Drug Administration. Performed at: [address] [id number] Barrel Line Operator: Red Fernández MD, Phone: [phone] 35 R11.10 R10.9 36 URINE SPECIMENS ARE SCREENED AT THE LISTED [facility] INITIAL TEST LEVEL Amphetamines 1000 ng/mL Barbiturates 200 ng/mL Benzodiazepines 200 ng/mL Cannabinoids 50 ng/mL Cocaine Metabolite 300 ng/mL Methadone 300 ng/mL Opiates 300 ng/mL Any PRESUMPTIVE POSITIVE findings are UNCONFIRMED. Confirmatory testing is suggested if findings are unexpected. Please contact laboratory if confirmatory testing is desired. SPECIMENS ARE HELD FOR 72 HOURS. 37 URINE, CLEAN CATCH 38 Result confirmed by repeat analysis. 39 Elevated levels of HbA1c suggest the need for more aggressive treatment of glycemia. The [place] [employer] recommends that a primary goal of therapy should be a HbA1c of <7% and that physicians should re-evaluate the treatment regimen in patients with HbA1c values consistently >8%. 40 Note: Persistent reduction for 3 months or more in an eGFR <60 mL/min/1.73 m2 defines CKD. Patients with eGFR values >/=60 mL/min/1.73 m2 may also have CKD if evidence of persistent proteinuria is present. The original MDRD equation for estimated GFR is not valid for patients less than 18 years of age. Additional information may be found at www.kdoqi.org. Procedures Date Code Description Status 01/20/2019 36503 Brief Emotional/Behav Assessment W/ Scoring Doc Per Completed Standard Inst 11/06/2018 07554 Brief Emotional/Behav Assessment W/ Scoring Doc Per Completed Standard Inst 05/01/2017 82849 Colonoscopy With Biopsy Completed 05/01/2017 99832862 Colonoscopy Completed 01/11/2017 24321 EGD With Biopsy Completed Encounters Type Date Location Provider Dx Diagnosis Office Visit 02/10/2019 Meir Story MD K59.00 Constipation, 9:00a unspecified R10.11 Right upper quadrant pain Office Visit 01/30/2019 1:30p Meir Story K59.00 MD Jose unspecified Office Visit 01/20/2019 11:30a [facility], B37.2 Candidiasis of skin Office HIWOT Coley and nail R63.5 Abnormal weight gain F34.81 Disruptive mood dysregulation disorder Office Visit 11/06/2018 10:20a [facility] Merlin F90.9 Attention- deficit Office MD Katia hyperactivity disorder, unspecified type F34.81 Disruptive mood dysregulation disorder K58.1 Irritable bowel syndrome with constipation Office Visit 10/29/2018 1:15p Meri Story MD K59.00 Constipation, unspecified R11.2 Nausea with vomiting, unspecified Office Visit 09/18/2018 9:00a [facility] Angelina Chawla, L50.1 Idiopathic Office , ARNOLD, CNM urticaria F34.81 Disruptive mood dysregulation disorder R14.0 Abdominal distension (gaseous) F90.9 Attention-deficit hyperactivity disorder, unspecified type Z30.09 Encounter for ot general coun and advice on contraception Office Visit 07/09/2018 9:30a Primary Care Office Angelina Chawla MS, K92.1 Melena TOOL CHASER-C, CNM R19.7 Diarrhea, unspecified Z23 Encounter for immunization Office Visit 05/17/2018 9:30a [facility] Angelina Chawla, R19.7 Diarrhea, Office MS, TOOL CHASER-C, CNM unspecified F34.81 Disruptive mood dysregulation disorder [...] unspecified, without bleeding Office Visit 12/22/2016 2:45p YANCI Curran MD K59.00 Constipation, unspecified R11.10 Vomiting, [...] 11:30 am - Angelina Chawla MS, ARNOLD, CAITLIN at Primary Care Kzvuac3703/17/2019 10:45 am - Meir Degroot MD at 03/18/2019 1:30 pm - Angelina Chawla MS, ARNOLD, CAITLIN at [facility] Fmuiar4202/10/2019 - Meir Degroot MDK59.00 Constipation, ufmugrcfdrgI10.11 Right upper quadrant painComments:sonogramlabsFollow up:3 weeks
--- OUTSIDE RECORDS SUMMARY | 2019-03-07 10:28 | XMS REPORT | Continuity of Care Document ---
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 Mask Etcher Unavailable Katia Boyer MD Primary Care Physician Unavailable Payers Date Identification Numbers Payment Provider Subscriber Effective: 2017 Policy Number: [id number] [employer] [facility] [place] PayID: [id number] [address] [place] [address] Expires: 2018 Policy Number: [id number] Medicaid Nasir Quinn PayID: [id number] [address] [place] [address] Problems Active Problems Provider Date Constipation Xander [...] Mother Home Environment Lives with Mother Occupation [employer] Work Status Not Currently Working Work Status Part-Time ETOH Use Denies alcohol use Tobacco Use Start: Unknown Patient denies history of smoking Recreational Drug Use Denies Drug Use Smoking Status Reviewed: 01/30/19 Patient denies history of smoking Allergies, Adverse Reactions, Alerts Active Allergies Reaction Severity Comments Date Erythromycin throat swells 11/27/2016 Augmentin rash 11/27/2016 Bactrim 12/22/2016 Latex 12/22/2016 Zithromax 12/22/2016 Adhesives Medications Active Medications SIG Qnty Indications Ordering Date Provider Nystatin Apply to 60gm B37.2 Katia Boyer, 01/20/2019 inframammary area [id number]/GM Powder bid Lactulose 30 ml by mouth 900ml K59.00 Zane, 10/29/2018 20GM/30ML twice a day as MD Meir Solution needed Simethicone take one every 6 120units R14.0 Gagen, 09/18/2018 80mg hours as needed for Angelina, MS, Chewtabs bloating. 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 Linzess 1 by mouth every 90caps [...] 10/29/2018 150mg Tablets Strattera weaning off-1 60caps Denton, 09/12/2017 - 40mg caps by mouth MS Angelina, 01/20/2019 Capsules every day for 2 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 weeks then stop Clindamycin HCL 1 tab by mouth 30caps Merlin, Katia, 07/31/2017 - 300mg every 8 hours for Unknown Capsules 10 days Clotrimazole apply to affected 28gm Merlin Katia, 07/06/2017 - Anti-Fungal area twice a day MD Bejarano 1% Cream Tylenol Extra 1-2 tabs by mouth 60tabs Katia Boyer, 07/06/2017 - Strength every 12 hours as 04/03/2018 500mg needed Tablets Fluoxetine HCL 1 by mouth every 30tabs MerlinAl schneidera, 05/17/2017 - 10mg day 07/06/2017 Tablets Dicyclomine [...] MD Carmel Unknown Ranitidine HCL 1 bid Djafsanjuana, - 150mg MD Carmel Unknown Tablets Ondansetron HCL every 8 hours as 90tabs Merlin, Katia, - 4mg needed MD Unknown Tablets Tylenol PM Extra 1 tab by mouth 30tabs Merlin, Katia, - Strength every night as 01/10/2018 500-25mg needed Tablets OCP Unknown - 12/12/2016 Pantoprazole Sodium 1 by mouth bid Unknown - Unknown 20mg Tablets DR Belle 1 tab every 30caps Merlin, Katia, - 80mg morning 09/12/2017 Capsules Loratadine 1 tab daily 30tabs Merlin, Katia, - 10mg 09/18/2018 Tablets Immunizations CPT Code Status Date Vaccine Lot # [id number] Given 07/09/2018 Influenza Virus Vaccine, Quadrivalent, 36 Mos+, [id number] Given 07/06/2017 Influenza Virus Vaccine Quadrivalent Iiv4 Split [id number] Preser Free Id Vital Signs Date Vital Result Comment 02/10/2019 9:10am BP Systolic Sitting Left Arm 105 mmHg BP Diastolic Sitting Left Arm 79 mmHg Heart Rate 94 /min Respiratory Rate 16 /min Height 64 inches 5'4" Weight 185.00 lb BMI (Body Mass Index) 31.8 kg/m2 BSA (Body Surface Area) 1.89 m2 Bow body weight in kilograms 54 kg O2 % BldC Oximetry 98 % 01/30/2019 1:52pm BP Systolic Sitting Left Arm 102 mmHg BP Diastolic Sitting Left Arm 77 mmHg Heart Rate 93 /min Respiratory Rate 16 /min Height 64 inches 5'4" Weight 183.12 lb BMI (Body Mass Index) 31.4 kg/m2 BSA (Body Surface Area) 1.88 m2 Bow body weight in kilograms 54 kg O2 % BldC Oximetry 98 % 01/20/2019 11:42am BP Systolic Sitting Left Arm 114 mmHg BP Diastolic Sitting Left Arm 80 mmHg Body Temperature 98.2 F Heart Rate 102 /min Respiratory Rate 18 /min Height 64 inches 5'4" Weight 181.00 lb BMI (Body Mass Index) 31.1 kg/m2 BSA (Body Surface Area) 1.88 m2 Bow body weight in kilograms 54 kg O2 % BldC Oximetry 98 % Ra 11/06/2018 10:39am BP Systolic Sitting Left Arm 102 mmHg BP Diastolic Sitting Left Arm 64 mmHg Heart Rate 106 /min Respiratory Rate 18 /min Height 64 inches 5'4" Weight 168.00 lb BMI (Body Mass Index) 28.8 kg/m2 BSA (Body Surface Area) 1.82 m2 Bow body weight in kilograms 54 kg O2 % BldC Oximetry 98 % ra 11/06/2018 10:32am Body Temperature 99.1 F Height 64 inches 5'4" Weight 168.00 lb BMI (Body Mass Index) 28.8 kg/m2 BSA (Body Surface Area) 1.82 m2 Bow body weight in kilograms 54 kg 10/29/2018 1:29pm BP Systolic 109 mmHg BP Diastolic 83 mmHg Body Temperature 99.4 F Heart Rate 105 /min Respiratory Rate 16 /min Height 64 inches 5'4" Weight 168.12 lb BMI (Body Mass Index) 28.9 kg/m2 BSA (Body Surface Area) 1.82 m2 Bow body weight in kilograms 54 kg O2 [...] kg/m2 BSA (Body Surface Area) 1.80 m2 Bow body weight in kilograms 54 kg O2 % BldC Oximetry 98 % ra 07/09/2018 9:21am BP Systolic Sitting Left Arm 116 mmHg BP Diastolic Sitting Left Arm 77 mmHg Body Temperature 99.1 F Heart Rate 116 /min Respiratory Rate 20 /min Height 64 inches 5'4" Weight 150.00 lb BMI (Body Mass Index) 25.7 kg/m2 BSA (Body Surface Area) 1.73 m2 Bow body weight in kilograms 54 kg O2 % BldC Oximetry 99 % 05/17/2018 9:38am BP Systolic Sitting Right Arm 119 mmHg BP Diastolic Sitting Right Arm 81 mmHg Body Temperature 97.9 F Heart Rate 100 /min Respiratory Rate 12 /min Height 64 inches 5'4" Weight 149.00 lb BMI (Body Mass Index) 25.6 kg/m2 BSA (Body Surface Area) 1.73 m2 Bow body weight in kilograms 54 kg O2 % BldC Oximetry 100 % 04/03/2018 9:46am BP Systolic Sitting Left Arm 110 mmHg BP Diastolic Sitting Left Arm 80 mmHg Heart Rate 90 /min Respiratory Rate 16 /min Height 64 inches 5'4" Weight 138.00 lb BMI (Body Mass Index) 23.7 kg/m2 BSA (Body Surface Area) 1.67 m2 Bow body weight in kilograms 54 kg O2 % BldC Oximetry 98 % 02/01/2018 10:10am BP Systolic Sitting Left Arm 103 mmHg BP Diastolic Sitting Left Arm 78 mmHg Heart Rate 96 /min Respiratory Rate 18 /min Height 64 inches 5'4" Weight 131.00 lb BMI (Body Mass Index) 22.5 kg/m2 BSA (Body Surface Area) 1.63 m2 Bow body weight in kilograms 54 kg Height Percentile 45 % Weight Percentile 55th 01/10/2018 12:00pm BP Systolic Sitting Left Arm 104 mmHg BP Diastolic Sitting Left Arm 72 mmHg Heart Rate 96 /min Respiratory Rate 16 /min Height 64 inches 5'4" Weight 131.00 lb BMI (Body Mass Index) 22.5 kg/m2 BSA (Body Surface Area) 1.63 m2 Bow body weight in kilograms 54 kg Height Percentile 45 % Weight Percentile 55th 11/14/2017 12:05pm BP Systolic Sitting Left Arm 113 mmHg BP Diastolic Sitting Left Arm 80 mmHg Heart Rate 101 /min Height 64 inches 5'4" Weight 132.00 lb BMI (Body Mass Index) 22.7 kg/m2 BSA (Body Surface Area) 1.64 m2 Bow body weight in kilograms 54 kg Height Percentile 45 % Weight Percentile 57th 10/03/2017 10:08am BP Systolic Sitting Left Arm 120 mmHg BP Diastolic Sitting Left Arm 70 mmHg Heart Rate 102 /min Respiratory Rate 16 /min Height 64 inches 5'4" Weight 132.00 lb BMI (Body Mass Index) 22.7 kg/m2 BSA (Body Surface Area) 1.64 m2 Bow body weight in kilograms 54 kg Height Percentile 45 % Weight Percentile 58th 07/31/2017 10:53am BP Systolic Sitting Left Arm 120 mmHg BP Diastolic Sitting Left Arm 80 mmHg Body Temperature 98.9 F Heart Rate 90 /min Respiratory Rate 16 /min Height 64 inches 5'4" Weight 137.00 lb BMI (Body Mass Index) 23.5 kg/m2 BSA (Body Surface Area) 1.67 m2 Bow body weight in kilograms 54 kg Height Percentile 45 % Weight Percentile 66th 07/06/2017 2:30pm BP Systolic Sitting Right Arm 113 mmHg BP Diastolic Sitting Right Arm 74 mmHg Heart Rate 109 /min Height 64 inches 5'4" Weight 132.00 lb BMI (Body Mass Index) 22.7 kg/m2 BSA (Body Surface Area) 1.64 m2 Bow body weight in kilograms 54 kg Height Percentile 46 % Weight Percentile 59th 04/04/2017 3:44pm BP Systolic Sitting Left Arm 118 mmHg BP Diastolic Sitting Left Arm 78 mmHg Heart Rate 89 /min Respiratory Rate 16 /min Height 64 inches 5'4" Weight 136.00 lb BMI (Body Mass Index) 23.3 kg/m2 BSA (Body Surface Area) 1.66 m2 Bow body weight in kilograms 54 kg 12/22/2016 3:27pm BP Systolic Sitting Left Arm 110 mmHg BP Diastolic Sitting Left Arm 80 mmHg Heart Rate 76 /min Respiratory Rate 16 /min Height 64 inches 5'4" Weight 138.00 lb BMI (Body Mass Index) 23.7 kg/m2 BSA (Body Surface Area) 1.67 m2 Bow body weight in kilograms 54 kg Height [...] kg/m2 BSA (Body Surface Area) 1.66 m2 Bow body weight in kilograms 54 kg Height Percentile 42 % Weight Percentile 69th Results Test Date Facility Test Result H/L Range Note Occult 01/22/2019 [facility] Stool Occult POSITIVE Abnormal Negative 1, 2 Blood,Stool [address] [facility] [place] [place] [address] Spec [phone] Ua RFX Micro & 01/22/2019 [facility] Urine Color YELLOW Yellow Culture II [address] [place] [address] [phone] Urine Clarity CLOUDY Clear Urine Glucose - Dipstick NEGATIVE mg/dL Negative Urine Bilirubin - Dipstick NEGATIVE Negative Urine Ketone NEGATIVE mg/dL Negative Urine Specific [place] 1.025 N 1.010-1.030 Urine Blood LARGE Abnormal Negative Urine PH 6.5 N 6.5-7.5 Urine Protein - Dipstick TRACE mg/dL Negative Urine Urobilinogen - Dipstick 0.2 E.U./dL N 0.2-1.0 Urine Nitrite - Dipstick NEGATIVE Negative Urine Leuk Esterase TRACE Abnormal Negative Urine RBC 10-20 rbc/hpf High 0-2 Urine WBC 5-10 wbc/hpf 0-7 Urine Epithelial Cells MODERATE /lpf None Seen 3 Urine Bacteria MODERATE Abnormal None Seen Source: URINE, CLEAN CAT <SEE NOTE> 4 Urine Culture 01/22/2019 [facility] Urine Culture URETHRAL MARGARITA [address] [place] [address] [phone] Quantity > 100,000 CFU/mL 5 Laboratory test 01/21/2019 [facility] Cortisol,Am 18.7 6.2-19.4 6, [address] g/[place] [address] [phone] Comprehensive 01/21/2019 [facility] Glucose 78 mg/dL N 74-106 Metabolic Panel [address] [place] [address] [phone] BUN 9 mg/dL N 7-18 Creatinine 0.8 mg/dL 0.6-1.3 Glom Filtration Rate, Estimate >60 mL/min >60 If >60 mL/min >60 8 BUN/Creat 11.2 ratio Sodium 137 mmol/L N [...] U/L High 45-117 CBC W/Automated Diff 01/21/2019 [facility] White Blood 6.9 K/uL N 3.1-10.[address] [place] [address] [phone] Red Blood Count 4.42 M/uL N 3.90-5.40 [...] 28.0-68.0 Lymph % 40.4 % N 20.0-42.0 Gem % 6.9 % N 4.3-13.2 Eo% 2.2 % N 0.0-6.6 Bas% 0.9 % N 0.0-1.1 Immature Grans 0.3 % N 0.0-5.0 NRBC % 0.0 /100WBC < 10/ 100 WBC Neut# 3.38 K/uL N 1.8-7.0 Lymph # 2.77 K/uL N 1.0-4.0 Gem # 0.47 K/uL N 0.3-0.9 Eos # 0.15 K/uL N 0.0-0.5 Baso # 0.06 K/uL N 0.0-0.1 Immature Grans Absolute 0.02 K/uL NRBC # 0.00 K/uL Laboratory test 01/21/2019 [facility] Acth,Plasma 29.4 pg/mL 7.2-63.3 9 finding [address] [place] [address] [phone] Ua RFX Micro & 11/10/2018 [facility] Urine Color YELLOW Yellow 10 Culture II [address] [place] [address] [phone] Urine Clarity CLOUDY Clear Urine Glucose - Dipstick NEGATIVE mg/dL Negative Urine Bilirubin - Dipstick NEGATIVE Negative Urine Ketone NEGATIVE mg/dL Negative Urine Specific [place] 1.015 N 1.010-1.030 Urine Blood NEGATIVE Negative Urine PH 8.5 High 6.5-7.5 Urine Protein - Dipstick TRACE mg/dL Negative Urine Urobilinogen - Dipstick 0.2 E.U./dL N 0.2-1.0 Urine Nitrite - Dipstick NEGATIVE Negative Urine Leuk Esterase NEGATIVE Negative Source: URINE, CLEAN CAT <SEE NOTE> 11 Laboratory test 11/10/2018 [facility] Urine HCG NEGATIVE Negative 12 finding [address] [facility] (Qualitative) [place] [address] [phone] Laboratory test 07/20/2018 [facility] Laboratory Rapid Strep Negative Negative 13 finding [phone] Molecular CBC W/Automated 06/15/2018 [facility] White Blood Count 7.1 K/uL N 3.1-10.7 14 Diff [address] [place] [address] [phone] Red Blood Count 4.28 M/uL N 3.90-5.40 [...] 28.0-68.0 Lymph % 42.9 % High 20.0-42.0 Gem % 5.2 % N 4.3-13.2 Eo% 3.1 % N 0.0-6.6 Bas% 0.4 % N 0.0-1.1 Neut# 3.42 K/uL N 1.8-7.0 Lymph # 3.04 K/uL N 1.0-4.0 Gem # 0.37 K/uL N 0.3-0.9 Eos # 0.22 K/uL N 0.0-0.5 Baso # 0.03 K/uL N 0.0-0.1 Ua RFX Micro & Culture 06/15/2018 [facility] Urine Color YELLOW Yellow II [address] [place] [address] [phone] Urine Clarity CLEAR Clear Urine Glucose - Dipstick NEGATIVE mg/dL Negative Urine Bilirubin - Dipstick NEGATIVE Negative Urine Ketone NEGATIVE mg/dL Negative Urine Specific [place] >=1.030 N 1.010-1.030 Urine Blood NEGATIVE Negative Urine PH 6.0 Low 6.5-7.5 Urine Protein - Dipstick TRACE mg/dL Negative Urine Urobilinogen - Dipstick 0.2 E.U./dL N 0.2-1.0 Urine Nitrite - Dipstick NEGATIVE Negative Urine Leuk Esterase NEGATIVE Negative Source: URINE, CLEAN CAT <SEE NOTE> 15 CBS W/Automated 04/03/2018 [facility] White Blood 5.1 K/uL N 3.1-10.7 [address] [place] [address] [phone] Red Blood Count 3.89 M/uL Low 3.90-5.40 [...] 28.0-68.0 Lymph % 46.7 % High 20.0-42.0 Gem % 7.6 % N 4.3-13.2 Eo% 0.6 % N 0.0-6.6 Bas% 0.8 % N 0.0-1.1 Neut# 2.28 K/uL N 1.8-7.0 Lymph # 2.40 K/uL N 1.0-4.0 Gem # 0.39 K/uL N 0.3-0.9 Eos # 0.03 K/uL N 0.0-0.5 Baso # 0.04 K/uL N 0.0-0.1 CBS W/Automated 11/23/2017 [facility] White Blood 6.6 K/uL N 3.1-10.7 [address] [place] [address] [phone] Red Blood Count 4.51 M/uL N 3.90-5.40 [...] 28.0-68.0 Lymph % 32.1 % N 20.0-42.0 Gem % 7.3 % N 4.3-13.2 Eo% 0.6 % N 0.0-6.6 Bas% 0.5 % N 0.0-1.1 Neut# 3.94 K/uL N 1.8-7.0 Lymph # 2.12 K/uL N 1.0-4.0 Gem # 0.48 K/uL N 0.3-0.9 Eos # 0.04 K/uL N 0.0-0.5 Baso # 0.03 K/uL N 0.0-0.1 Ua RFX Micro & Culture 11/23/2017 [facility] Urine Color YELLOW Yellow II [address] [place] [address] [phone] Urine Clarity CLEAR Clear Urine Glucose - Dipstick NEGATIVE mg/dL Negative Urine Bilirubin - Dipstick NEGATIVE Negative Urine Ketone NEGATIVE mg/dL Negative Urine Specific [place] <=1.005 Low 1.010-1.030 Urine Blood NEGATIVE Negative Urine PH 6.0 Low 6.5-7.5 Urine Protein - Dipstick NEGATIVE mg/dL Negative Urine Urobilinogen - Dipstick 0.2 E.U./dL N 0.2-1.0 Urine Nitrite - Dipstick NEGATIVE Negative Urine Leuk Esterase NEGATIVE Negative Source: URINE, CLEAN CAT <SEE NOTE> 18 Chlamydia/GC 11/23/2017 [facility] Chlamydia Negative Negative Mickie, Urine [address] [facility] Trachomatis,[place] [address] -PCR [phone] Neisseria Gonorrhoeae,Ur -PCR Negative Negative 19 Ua Routine 05/03/2017 [facility] Urine Color YELLOW Yellow 20 [address] [place] [address] [phone] Urine Clarity CLEAR Clear Urine Glucose - Dipstick NEGATIVE mg/dL Negative Urine Bilirubin - Dipstick NEGATIVE Negative Urine Ketone NEGATIVE mg/dL Negative Urine Specific [place] 1.010 N 1.010-1.030 Urine Blood SMALL Abnormal [...] Seen Source: URINE, CLEAN CAT <SEE NOTE> 21 Chlamydia/GC 05/03/2017 [facility] Chlamydia Negative Negative Mickie, Urine [address] Trachomatis,[place] [address] -Mickie [phone] Neisseria Gonorrhoeae,Ur -Mickie Negative Negative 22 CBS W/Automated Diff 05/03/2017 [facility] White Blood 6.8 K/uL N 3.1-10.[address] Count [place], [place] [id number] [phone] Red Blood Count 4.17 M/uL N 3.90-5.40 [...] 28.0-68.0 Lymph % 30.9 % N 20.0-42.0 Gem % 6.0 % N 4.3-13.2 Eo% 1.3 % N 0.0-6.6 Bas% 0.6 % N 0.0-1.1 Neut# 4.18 K/uL N 1.8-7.0 Lymph # 2.11 K/uL N 1.0-4.0 Gem # 0.41 K/uL N 0.3-0.9 Eos # 0.09 K/uL N 0.0-0.5 Baso # 0.04 K/uL N 0.0-0.1 Laboratory 05/01/2017 [facility] Urine HCG NEGATIVE Negative 23, 24 test finding [address] (Qualitative) [place] [address] [phone] CRP (High 12/25/2016 [facility] C-Reactive 0.87 mg/L <3.0 25 Sensitivity) [address] Protein,[place] [address] [phone] Reflex add FT3? Y Reflex add FT4? Y Laboratory test 12/25/2016 [facility] Sedimentation Rate 13 mm/hr N 0-20 [address] [place] [address] [phone] Laboratory test 12/25/2016 [facility] C1 Esterase 70 %meanno . [address] [place] [place] [address] [phone] C1 Esterase Inhibitor 25 mg/dL 21-39 Complement C4, Serum 31 mg/dL 14-44 TSH W/Free T4 12/25/2016 [facility] Thyroid Stim 1.39 uIU/mL N 0.30-4.[address] [place] [address] [phone] Reflex add FT3? Y Reflex add FT4? Y Celiac Disease 12/25/2016 [facility] Immunoglobulin A 348 mg/dL 87-352 [address] PNL [address] [place], [place] [id number] [phone] Antigliadin Abs, IgG 2 units 0-19 28 Antigliadin Abs, IgA 6 units 0-19 29 Endomysial IgA Antibody Negative Negative t-Transglutaminase IgA <2 U/mL 0-3 30 t-Transglutaminase IgG <2 U/mL 0-5 31 Laboratory 12/23/2016 [facility] Porphobilinogen,QN,Random 0.0 mg/L 0.0-2.0 32, test [address] Urin 33 [place] [address] [phone] Drugs Of 11/27/2016 [facility] Amphetamines (Urine) Negative 34 Abuse-Urine [address] Screen 7 [place], [place] [id number] [phone] Barbiturates (Urine) Negative Benzodiazepines (Urine) Negative Cannabinoids (Urine) Negative Cocaine Metabolite (Urine) Negative Methadone (Urine) Negative Opiates (Urine) Negative Urine Cutoffs * 35 Ua Routine 11/27/2016 [facility] Urine Color YELLOW Yellow [address] [place], [place] [address] [phone] Urine Clarity CLEAR Clear Urine Glucose - Dipstick NEGATIVE mg/dL Negative Urine Bilirubin - Dipstick NEGATIVE Negative Urine Ketone NEGATIVE mg/dL Negative Urine Specific [place] <=1.005 Low 1.010-1.030 Urine Blood TRACE Negative [...] Negative Source: URINE, CLEAN CAT <SEE NOTE> 36 Laboratory 11/27/2016 [facility] HCG,Serum NEGATIVE (Negative) test finding [address] (Qualitative) [place] [address] [phone] Vitamin B12 11/27/2016 [facility] Vitamin B12 363 pg/mL N 193-9[address] [place], [place] [address] [phone] Folic Acid 32.3 ng/mL High 3.1-17.5 37 Laboratory test 11/27/2016 [facility] Magnesium 2.4 N 1.8-2.[address] mg/dL [place], [place] [address] [phone] Glycohemoglobin 11/27/2016 [facility] Glycohemoglobin 5.0 % N 4.2-6.[address] (A1c) [place], [place] [address] [phone] eAG 97 mg/dL Laboratory test 11/27/2016 [facility] Thyroid Stim 2.21 uIU/mL N 0.30-4.[address] [place] [address] [phone] Free T4 0.88 ng/dL N 0.76-1.46 CBS W/Automated Diff 11/27/2016 [facility] White Blood 5.4 K/uL N 3.1-10.[address] [place] [address] [phone] Red Blood Count 4.65 M/uL N 3.90-5.40 [...] 28.0-68.0 Lymph % 42.8 % High 20.0-42.0 Gem % 7.2 % N 4.3-13.2 Eo% 0.9 % N 0.0-6.6 Bas% 0.6 % N 0.0-1.1 Neut# 2.61 K/uL N 1.8-7.0 Lymph # 2.30 K/uL N 1.0-4.0 Gem # 0.39 K/uL N 0.3-0.9 Eos # 0.05 K/uL N 0.0-0.5 Baso # 0.03 K/uL N 0.0-0.1 Comprehensive Metabolic 11/27/2016 [facility] Glucose 83 mg/dL N 74-[address] [place] [address] [phone] BUN 10 mg/dL N 7-18 Creatinine 0.7 mg/dL N 0.6-1.3 Glom Filtration Rate, Estimate >60 mL/min >60 If >60 mL/min >60 39 BUN/Creat 14.2 ratio Sodium 140 mmol/L N [...] Alkaline Phosphatase 82 U/L N 45-117 1 UPPER LEFT SIDE ABD PAIN 2 Method: [facility] [place] Hemoccult Card 3 POSSIBLE UROGENITAL CONTAMINATION. 4 URINE, CLEAN CATCH 5 > 100,000 CFU/mL 6 R63.5 7 Performed at: [address] [id number] Academic Support Assistant: Jaci Wood MD, Phone: [phone] Note: Persistent reduction for 3 months or more in an eGFR <60 mL/min/1.73 m2 defines CKD. Patients with eGFR values >/=60 mL/min/1.73 m2 may also have CKD if evidence of persistent proteinuria is present. The original MDRD equation for estimated GFR is not valid for patients less than 18 years of age. Additional information may be found at www.kdoqi.org. 9 ACTH reference interval for samples collected between 7 and 10 AM. Performed at: [address] [id number] Academic Support Assistant: Jaci Wood MD, Phone: [phone] VOMITING, ABD PAIN 11 URINE, CLEAN CATCH 12 FIRST MORNING SPECIMENS GENERALLY CONTAIN THE HIGHEST CONCENTRATION OF HCG AND ARE RECOMMENDED FOR EARLY DETECTION OF . Method: Quidel QuickVue One-Step Immunoassay 13 Licensed Practical Nurse Clinic Nurse: [id number] IBS, CONSTIPATION, ABD PAIN 15 URINE, CLEAN CATCH 16 SENT BY , DEHYDRATION, ANOREXIA 17 IBS SHAKING EPISODE, URI 18 URINE, CLEAN CATCH 19 A negative result for either C. trachomatis and/or N. gonorrhoeae does not preclued an infection because results are dependent on adequate specimen collection, absence of inhibitors, and sufficient DNA to be detected. 20 HAD COLONOSCOPY 05/01, VERY LETHARGIC,LEFT ABD PAIN 21 URINE, CLEAN CATCH 22 A negative result for either C. trachomatis and/or N. gonorrhoeae does not preclued an infection because results are dependent on adequate specimen collection, absence of inhibitors, and sufficient DNA to be detected. 23 COLONOSCOPY RESCHEDULED 24 FIRST MORNING SPECIMENS GENERALLY CONTAIN THE HIGHEST CONCENTRATION OF HCG AND ARE RECOMMENDED FOR EARLY DETECTION OF . Method: Quidel QuickVue One-Step Immunoassay 25 K59.00 R10.9 26 Method: Sediplast Modified Westergren 27 INFCE Result Units: %mean normal Abnormal <41 Equivocal 41 - 67 Normal >67 Performed at: [address] [id number] Academic Support Assistant: Jaci Wood MD, Phone: [phone] Performed at: [address] [id number] Academic Support Assistant: Red Fernández MD, Phone: [phone] 28 Negative 0 - 19 Weak Positive 20 - 30 Moderate to Strong Positive >30 29 Negative 0 - 19 Weak Positive 20 - 30 Moderate to Strong Positive >30 30 Negative 0 - 3 Weak Positive 4 - 10 Positive >10 Tissue Transglutaminase (tTG) has been identified as the endomysial antigen. Studies have demonstr- ated that endomysial IgA antibodies have over 99% specificity for gluten sensitive enteropathy. 31 Negative 0 - 5 Weak Positive 6 - 9 Positive >9 32 E59.00 R10.9 33 This test was developed and its performance characteristics determined by [facility]. It has not been cleared or approved by the Food and Drug Administration. Performed at: [address] [id number] Academic Support Assistant: Red Fernández MD, Phone: [phone] 34 R11.10 R10.9 35 URINE SPECIMENS ARE SCREENED AT THE LISTED CUTOFFS DRUG CLASS INITIAL TEST LEVEL Amphetamines 1000 ng/mL Barbiturates 200 ng/mL Benzodiazepines 200 ng/mL Cannabinoids 50 ng/mL Cocaine Metabolite 300 ng/mL Methadone 300 ng/mL Opiates 300 ng/mL Any PRESUMPTIVE POSITIVE findings are UNCONFIRMED. Confirmatory testing is suggested if findings are unexpected. Please contact laboratory if confirmatory testing is desired. SPECIMENS ARE HELD FOR 72 HOURS. 36 URINE, CLEAN CATCH 37 Result confirmed by repeat analysis. 38 Elevated levels of HbA1c suggest the need for more aggressive treatment of glycemia. The [place] [employer] recommends that a primary goal of therapy should be a HbA1c of <7% and that physicians should re-evaluate the treatment regimen in patients with HbA1c values consistently >8%. 39 Note: Persistent reduction for 3 months or [...] www.kdoqi.org. Procedures Date Code Description Status 01/20/2019 44632 Brief Emotional/Behav Assessment W/ Scoring Doc Per Completed Standard Inst 11/06/2018 30376 Brief Emotional/Behav Assessment W/ Scoring Doc Per Completed Standard Inst 05/01/2017 54430 Colonoscopy With Biopsy Completed 05/01/2017 [id number] Colonoscopy Completed 01/11/2017 [id number] EGD With Biopsy Completed Encounters Type Date Location Provider Dx Diagnosis Office Visit 01/30/2019 Meir Story, K59.00 Constipation, 1:30p unspecified Office Visit 01/20/2019 [facility], B37.2 Candidiasis of skin 11:30a Office HIWOT [place] and nail R63.5 Abnormal [...] Care Angelina Chawla, 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.] R11.10 Vomiting, unspecified Plan of Treatment Future Appointment(s):03/18/2019 1:30 pm - Angelina Chawla, , 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 at [id number]/30/2019 - Meir Degroot MDK59.00 Constipation, unspecifiedComments:constipated despite colace and lactulose and miralax and linzess, sennaorder sitz marker studyhold laxatives for 5 daysFollow up:4 weeks
[2019-03-07 10:35] VITALS: BP 108/73
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
== END 2019-03-07 11:00 | disposition home or self-care (01) ==
LOC: UCCORT 09:58
DX: S51.831A Puncture wound without foreign body of right forearm, initial encounter (principal); W26.8XXA Contact with other sharp object(s), not elsewhere classified, initial encounter; Y93.89 Activity, other specified; Y92.9 Unspecified place or not applicable; Z88.0 Allergy status to penicillin; Z88.1 Allergy status to other antibiotic agents
CPT/HCPCS: 99211; G0463

== ENCOUNTER 2019-08-09 08:42 | Emergency (ER) | payer MEDICAID ==
[2019-08-09 09:09] VITALS: BP 107/69
--- NOTE | 2019-08-09 09:24 | UC ---
Ear Complaint HPI - HPI Summary HPI Summary: 19 y/o female presents to the urgent care c/o Right ear pain for the past 3 days. More intense this morning. Starting to have mild pain in left ear. Pt is 12 weeks and her first . Pt has been w/ mild nasal congestion and clear nasal discharge. Rt ear pain is 7/10 and she has taken Tylenol PO to alleviate symptoms. Pt denies fever, HERNANDEZ, dizziness, urinary symptoms, swelling, sore throat, cough, SOB, chest pain, abdominal pain, N/V/D or visual changes or tinnitus - History of Current Complaint Chief Complaint: UCEar Stated Complaint: RIGHT EAR COMPLAINT Time Seen by Provider: 08/09/19 09:13 Hx Obtained From: Patient ?: Yes - 12 weeks Onset/Duration: Gradual Onset, Lasting Days - 3 days, Still Present, Worse Since - today Severity Initially: Mild Severity Currently: Moderate Pain Intensity: 7 Pain Scale Used: 0-10 Numeric Aggravating Factors: Other - nasal congestion Alleviating Factors: OTC Meds - tylenol Associated Signs/Symptoms: Positive: URI Symptoms - Allergies/Home Medications Allergies/Adverse Reactions: Allergies Allergy/AdvReac Type Severity Reaction Status Date / Time amoxicillin Allergy Rash Verified 08/09/19 09:04 azithromycin Allergy Rash Verified 08/09/19 09:04 bacitracin Allergy Rash Verified 08/09/19 09:04 erythromycin base Allergy Difficulty Verified 08/09/19 09:04 Breathing latex Allergy Hives Verified 08/09/19 09:04 Home Medications: Home Medications Acetaminophen TAB* [Tylenol TAB*] 220 mg PO Q4H PRN 08/09/19 [History Confirmed 08/09/19] Albuterol HFA INHALER* [Ventolin HFA Inhaler*] 2 puff INH Q4H PRN 08/09/19 [ History Confirmed 08/09/19] Pnv No.95/Ferrous Fum/Folic AC [ Tablet] 1 tab PO DAILY 08/09/19 [ History Confirmed 08/09/19] PMH/Surg Hx/FS Hx/Imm Hx Previously Healthy: Yes Respiratory History: Asthma - Surgical History Surgical History: Yes Surgery Procedure, Year, and Place: Colonoscopy, Endoscopy, [place] Teeth Extracted - Family History Known Family History: Positive: Cardiac Disease, Hypertension, Diabetes - Social History Occupation: Employed Full-time Lives: With Family Alcohol Use: None Substance Use Type: None Smoking Status (MU): Never Smoked Tobacco Have You Smoked in the Last Year: No Household Exposure Type: Cigarettes - Immunization History Most Recent Tetanus Shot: 2 months ago Vaccination Up to Date: Yes Review of Systems All Other Systems Reviewed And Are Negative: Yes Constitutional: Positive: Negative Skin: Positive: Negative Eyes: Positive: Negative ENT: Positive: Ear Ache - RT ear pain, Nasal Discharge - yellowish, Sinus Congestion Respiratory: Positive: Negative Cardiovascular: Positive: Negative Gastrointestinal: Positive: Negative Genitourinary: Positive: Negative Motor: Positive: Negative Neurovascular: Positive: Negative Musculoskeletal: Positive: Negative Neurological: Positive: Negative Psychological: Positive: Negative Is Patient Immunocompromised?: No Physical Exam - Summary Physical Exam Summary: Vital signs: reviewed General: well developed, well nourished female sitting in the examining table w/o any apparent distress Skin: [place], warm and dry, no evidence of atopic dermatitis, psoriasis, seborrhea. HEENT: -Head: atraumatic, non tender; no scalp dermatitis. -Eyes: sclera and conjunctiva clear, PERRLA, EOMI -Ears: no pre- or postauricular lymphadenopathy or erythema; RT external ear canal with erythema and no drainage observed, pinna tenderness on palpation, Rt TM WNL, LF external ear canal clear and LF TM WNL. TMs normal w/out bulging or retraction. Good light reflex. No fluid level, vesicles, or bullae. No perforation. -Nose/Face: erythematous and edematous nasal mucosa with clear rhinorrhea, no frontal or maxillary sinus tender to palpation. -Mouth/Throat: Mucous membrane moist, posterior pharynx clear, no erythema or exudates. Neck: supple, FROM, nontender, no lymphadenopathy, no meningismus. Chest: Clear to auscultation, normal breath sounds Abd: soft, Bowel sounds active, Nontender. Back: no spinal or CVAT Neuro: A&O x4, GCS 15, no focal neuro deficits, normal behavior for age. Triage Information Reviewed: Yes Vital Signs: Initial Vital Signs Temp 97.8 F 08/09/19 09:03 Pulse 79 08/09/19 09:03 Resp 16 08/09/19 09:03 BP 107/69 08/09/19 09:03 Pulse Ox 100 08/09/19 09:03 Ear Complaint Course/Dx - Course Course Of Treatment: 19 y/o female presents to the urgent care c/o Right ear pain for the past 3 days. More intense this morning. Starting to have mild pain in left ear. Pt is 12 weeks and her first . Pt has been w/ mild nasal congestion and clear nasal discharge. Rt ear pain is 7/10 and she has taken Tylenol PO to alleviate symptoms. Pt denies fever, HERNANDEZ, dizziness, urinary symptoms, swelling, sore throat, cough, SOB, chest pain, abdominal pain, N/V/D or visual changes or tinnitus. Pt is and allergic Z-cher , bacitracin, an other antibiotics with an URI and RT otitis externa on examination. I discussed Pt's symptoms w/ DR Reyna who recommends Acetic acid otic drops. Pt Rx drops as directed below. Advised to take Tylenol PO OTC for pain. If symptoms do not improve or worsen to return to the urgent care or f/u with PCP for further management. Pt understood and agreed with D/C instructions. - Differential Dx/Diagnosis Differential Diagnosis/HQI/PQRI: Cerumen Impaction, Perforated TM Provider Diagnosis: Right otitis externa, URI (upper respiratory infection) Discharge ED - Sign-Out/Discharge Documenting (check all that apply): Patient Departure - D/c home All imaging exams completed and their final reports reviewed: No Studies - Discharge Plan Condition: Stable Disposition: HOME Prescriptions: Acetic Acid 0.25%* 4 drop .SEE ORDER TID #1 btl Patient Education Materials: Otitis Externa (ED) Referrals: Katia Boyer MD [Primary Care Provider] - 3 Days Additional Instructions: 1-Please apply otic antibiotic on your Rt ear as directed. 2-Take Tylenol PO q6hrs prn after meals for pain. 3- Use saline drops as directed to clear sinuses. Use a humidifier at night time to alleviate symptoms 4-If symptoms do not improve or worsen please f/u with your PCP in 2-3 days or return to the urgent care for further evaluation and treatment. - Billing Disposition and Condition Condition: STABLE Disposition: Home
== END 2019-08-09 09:55 | disposition home or self-care (01) ==
LOC: UCCORT 08:42
DX: H60.91 Unspecified otitis externa, right ear (principal); J06.9 Acute upper respiratory infection, unspecified; Z88.0 Allergy status to penicillin; Z88.1 Allergy status to other antibiotic agents; Z91.040 Latex allergy status
CPT/HCPCS: 99212; G0463

== ENCOUNTER 2019-11-08 14:09 | Emergency (ER) | payer MEDICAID, OTHER ==
--- OUTSIDE RECORDS SUMMARY | 2019-11-08 14:16 | XMS REPORT | Continuity of Care Document ---
:2000 External Reference #:[id number] Author Name Margi Boyce, ADVERTISING SUPERVISOR Address [address] [place] [address] Care Team Providers Name Role Phone Jose Valente MD - Neurology Care Team Information Grey Goods Tester Xander Curran MD - Gastroenterology Care Team Information Grey Goods Tester Saskia Vázquez ADVERTISING SUPERVISOR Care Team Information Grey Goods Tester [phone] Radha Guevara NP - Nurse Care Team Information Grey Goods Tester [phone] Practitioner Angelina Chawla NP, CNM - Nurse Care Team Information Grey Goods Tester Practitioner Problems Active Problems Provider Date Constipation Xander Curran MD Onset: 12/22/2016 Abdominal pain Xander Curran MD Onset: 12/22/2016 Vomiting, unspecified Xander Curran MD Onset: 12/22/2016 Gastroduodenitis Xander Curran MD Onset: 04/04/2017 Irritable bowel syndrome characterized by Xander Curran MD Onset: 10/03/2017 constipation Heartburn Xander Curran MD Onset: 10/03/2017 Dissociative convulsions Katia Boyer MD Onset: 11/14/2017 Corns and callosities Katia Boyer MD Onset: 11/14/2017 Symptom of skin and integumentary tissue Katia Boyer MD Onset: 01/10/2018 Headache Katia Boyer MD Onset: 01/10/2018 Hemorrhage of rectum and anus Xander Curran MD Onset: 02/01/2018 Dehydration Xander Curran MD Onset: 04/03/2018 Disruptive mood dysregulation disorder Katia Boyer MD Onset: 11/06/2018 Attention-deficit hyperactivity disorder, Katia Boyer MD Onset: 11/06/2018 unspecified type Social History Type Date Description Comments Sex Unknown Tobacco Use Start: Unknown Never Smoked Cigarettes ETOH Use Denies alcohol use Recreational Drug Use Denies Drug Use Tobacco Use Start: Unknown Patient has never smoked Smoking Status Reviewed: 10/30/19 Patient has never smoked Exercise Type/Frequency Does not exercise Allergies, Adverse Reactions, Alerts Active Allergies Reaction Severity Comments Date Erythromycin throat swells 11/27/2016 Augmentin rash 11/27/2016 Bactrim 12/22/2016 Latex 12/22/2016 Zithromax 12/22/2016 Adhesives Amoxicillin Anxiety Moderate 10/07/2019 Medications Active Medications SIG Qnty Indications Ordering Date Provider Ventolin HFA take 2 puffs 8gm J45.30 Charles-Helm, 10/30/2019 108(90Base) every 6 hours as Margi Ackerman mcg/Act Aerosol needed for ADVERTISING SUPERVISOR shortness of breath. Ergocalciferol take one a week 14caps E55.9 Ratn[place]am, 10/07/2019 1.25mg MD Rocio (27329 Ut) Capsules Fluoxetine HCL take one capsule 30caps Ratnasingam, 07/06/2017 20mg by mouth once MD Rocio Capsules daily Ventolin HFA take 2 puffs 16gm Calhoun-Ade, 108(90Base) every 6 hours as MD Dionicio mcg/Act Aerosol needed for shortness of breath. Complete 1 by mouth every Unknown day 14-0.4mg Tablets History Medications Selsun Blue Naturals wash hair, leave 16Oz L21.9 Ratnasingam, 10/07/2019 - Dry Scalp it on for 5 MD Rocio 10/30/2019 3% Shampoo minutes and then rinse every day for 2 weeks. Triamcinolone apply to 80gm L30.0 Katia Boyer MD 06/13/2019 - Acetonide affected areas Unknown 0.1% Cream on arms/legs twice a day Immunizations CPT Code Status Date Vaccine Lot # [id number] Given 07/09/2018 Influenza Virus Vaccine, Quadrivalent, 36 Mos+, [id number] .[id number] Given 07/06/2017 Influenza Virus Vaccine Quadrivalent Iiv4 Split [id number] Preser Free Id Vital Signs Date Vital Result Comment 10/30/2019 2:45pm BP Systolic 106 mmHg BP Diastolic 67 mmHg Body Temperature 97.7 F Heart Rate 88 /min Respiratory Rate 18 /min Weight 223.38 lb Pain Level 5 O2 % BldC Oximetry 97 % 10/07/2019 11:11am BP Systolic Sitting Left Arm 112 mmHg BP Diastolic Sitting Left Arm 66 mmHg Body Temperature 98.6 F Heart Rate 111 /min Respiratory Rate 28 /min Height 63 inches 5'3" Weight 214.00 lb BMI (Body Mass Index) 37.9 kg/m2 BSA (Body Surface Area) 1.99 m2 [place] body weight in kilograms 52 kg O2 % BldC Oximetry 98 % ra Results Test Acquired Date Facility Test Result H/L Range Note Urinalysis With 09/30/2019 [facility] Urine Color Light-Yellow Yellow 1 Microscopic [address] [place] [address] [phone] Urine Clarity Slightly Cloudy Clear Urine Glucose - Dipstick NEGATIVE mg/dL Negative Urine Bilirubin - Dipstick NEGATIVE Negative Urine Ketone NEGATIVE mg/dL Negative Urine Specific Jackson 1.012 Normal 1.010-1.030 Urine Blood NEGATIVE Negative Urine PH 7.0 Normal 6.5-7.5 Urine Protein - Dipstick NEGATIVE mg/dL Negative Urine Urobilinogen - Dipstick < 2.0 mg/dL < 2.0 Urine Nitrite - Dipstick NEGATIVE Negative Urine Leuk Esterase MODERATE Abnormal Negative Urine RBC 3-5 rbc/hpf 0-2 Urine WBC 3-5 wbc/hpf 0-5 Urine Epithelial Cells FEW /lpf None Seen Urine Bacteria MANY Abnormal None Seen Urine Mucus SMALL None Seen Source: URINE, CLEAN CAT <SEE NOTE> 2 Urine Culture 09/30/2019 [facility] Urine Culture [address] [place] [address] [phone] Quantity 10,000 - 50,000 <SEE NOTE> 3 Laboratory 09/25/2019 [facility] Vitamin 22.9 Low 30.0-100.0 4, 5 test finding [address] ALPHONSO D,25-Hydroxy ng/[place] [address] [phone] Ua RFX Micro & 07/28/2019 [facility] Urine Color STRAW Yellow 6 Culture II [address] [place] [address] [phone] Urine Clarity CLEAR Clear Urine Glucose - Dipstick NEGATIVE mg/dL Negative Urine Bilirubin - Dipstick NEGATIVE Negative Urine Ketone NEGATIVE mg/dL Negative Urine Specific Jackson <= 1.005 Low 1.010-1.030 Urine Blood NEGATIVE Negative Urine PH 7.0 Normal 6.5-7.5 Urine Protein - Dipstick NEGATIVE mg/dL Negative Urine Urobilinogen - Dipstick 0.2 E.U./dL Normal 0.2-1.0 Urine Nitrite - Dipstick NEGATIVE Negative Urine Leuk Esterase TRACE Abnormal Negative Source: URINE, CLEAN CAT <SEE NOTE> 7 Urine RBC 0-2 rbc/hpf 0-2 Urine WBC 0-2 wbc/hpf 0-7 Urine Epithelial Cells MODERATE /lpf None Seen Urine Bacteria FEW None Seen CBC W/Automated 07/28/2019 [facility] White Blood 7.4 K/uL Normal 3.1-10.[address] [place] [address] [phone] Red Blood Count 4.14 M/uL Normal 3.90-5.40 Hemoglobin 12.2 gm/dL Normal 11.6-15.8 Hematocrit 37.4 % Normal 36.0-46.1 Mean Cell Volume 90.3 fl Normal 80.9-99.0 Mean Corpuscular HGB 29.5 pg Normal 25.9-32.7 Mean Corpuscular HGB Conc 32.6 g/dL Normal 30.8-34.3 Platelet Count 333 K/uL Normal 155-360 Red Cell Distri Width SD 43.4 fl Normal 36-47 Red Cell Distri Width %CV 13.2 % Normal 11.7-14.4 Mean Platelet Volume 9.8 fl Normal 8.9-12.4 Neut% 56.5 % Normal 40.4-72.8 Lymph % 33.8 % Normal 20.0-42.0 Newton % 6.5 % Normal 4.3-13.2 Eo% 1.9 % Normal 0.0-6.6 Bas% 0.9 % Normal 0.0-1.1 Immature Grans 0.4 % Normal 0.0-5.0 NRBC % 0.0 /100WBC < 10/ 100 WBC Neut# 4.16 K/uL Normal 1.8-7.0 Lymph # 2.49 K/uL Normal 1.0-4.0 Newton # 0.48 K/uL Normal 0.3-0.9 Eos # 0.14 K/uL Normal 0.0-0.5 Baso # 0.07 K/uL Normal 0.0-0.1 Immature Grans Absolute 0.03 K/uL NRBC # 0.00 K/uL Comprehensive 07/28/2019 [facility] Glucose 76 mg/dL Normal 74-106 Metabolic Panel [address] [place] [address] [phone] BUN 6 mg/dL Low 7-18 Creatinine 0.5 mg/dL Low 0.6-1.3 Glom Filtration Rate, Estimate >60 mL/min >60 If >60 mL/min >60 8 BUN/Creat 12.0 ratio Sodium 134 mmol/L Low 136-145 Potassium 3.8 mmol/L Normal 3.5-5.1 Chloride 104 mmol/L Normal 98-107 Carbon Dioxide 24 mmol/L Normal 21-32 Anion Gap 6 mEq/L Low 8-16 Calcium 9.1 mg/dL Normal 8.5-10.1 Total Protein 7.4 g/dL Normal 6.4-8.2 Albumin 3.2 g/dL Low 3.4-5.0 Globulin 4.2 g/dL Normal 1.9-4.3 Alb/Glob 0.8 ratio Bilirubin,Total 0.2 mg/dL Normal 0.2-1.0 Sgot/Ast 26 U/L Normal 15-37 SGPT/Alt 38 U/L Normal 12-78 Alkaline Phosphatase 89 U/L Normal 45-117 HCV Rna 06/13/2019 [facility] Hepatitis C Negative Negative 9, [address] Rna-[place] [address] [phone] HIV Screen 06/13/2019 [facility] HIV Screen 4th Non Reactive Non Reactive [address] [place] [address] [phone] Chlam/GC/T 06/13/2019 [facility] Ur Trichomonas NEGATIVE Negative richomonas [address] vaginalis,PCR PCR, [place] [address] [phone] Ur Chlamydia trachomatis,PCR NEGATIVE Negative Ur Neisseria gonorrhoeae,PCR NEGATIVE Negative 12 Laboratory 06/13/2019 [facility] Treponema Negative Negative 13 test finding [address] [place] [address] [place] [phone] CBC 05/26/2019 [facility] White Blood 9.8 K/uL Normal 3.1-10.7 14 W/Automated [address] Count Diff [place], [place] [address] [phone] Red Blood Count 4.09 M/uL Normal 3.90-5.40 Hemoglobin 12.1 gm/dL Normal 11.6-15.8 Hematocrit 36.8 % Normal 36.0-46.1 Mean Cell Volume 90.0 fl Normal 80.9-99.0 Mean Corpuscular HGB 29.6 pg Normal 25.9-32.7 Mean Corpuscular HGB Conc 32.9 g/dL Normal 30.8-34.3 Platelet Count 363 K/uL High 155-360 Red Cell Distri Width SD 45.5 fl Normal 36-47 Red Cell Distri Width %CV 13.9 % Normal 11.7-14.4 Mean Platelet Volume 9.8 fl Normal 8.9-12.4 Neut% 30.5 % Low 40.4-72.8 Lymph % 50.2 % High 20.0-42.0 Newton % 5.6 % Normal 4.3-13.2 Eo% 12.0 % High 0.0-6.6 Bas% 1.1 % Normal 0.0-1.1 Immature Grans 0.6 % Normal 0.0-5.0 NRBC % 0.0 /100WBC < 10/ 100 WBC Neut# 2.97 K/uL Normal 1.8-7.0 Lymph # 4.89 K/uL High 1.0-4.0 Newton # 0.55 K/uL Normal 0.3-0.9 Eos # 1.17 K/uL High 0.0-0.5 Baso # 0.11 K/uL High 0.0-0.1 Immature Grans Absolute 0.06 K/uL NRBC # 0.00 K/uL Comprehensive Metabolic 05/26/2019 [facility] Glucose 119 mg/dL High 74-[address] [place], [place] [address] [phone] BUN 16 mg/dL Normal 7-18 Creatinine 0.9 mg/dL Normal 0.6-1.3 Glom Filtration Rate, Estimate >60 mL/min >60 If >60 mL/min >60 15 BUN/Creat 17.7 ratio Sodium 140 mmol/L Normal 136-145 Potassium 3.5 mmol/L Normal 3.5-5.1 Chloride 106 mmol/L Normal 98-107 Carbon Dioxide 22 mmol/L Normal 21-32 Anion Gap 12 mEq/L Normal 8-16 Calcium 9.1 mg/dL Normal 8.5-10.1 Total Protein 7.7 g/dL Normal 6.4-8.2 Albumin 3.6 g/dL Normal 3.4-5.0 Globulin 4.1 g/dL Normal 1.9-4.3 Alb/Glob 0.9 ratio Bilirubin,Total 0.2 mg/dL Normal 0.2-1.0 Sgot/Ast 43 U/L High 15-37 SGPT/Alt 55 U/L Normal 12-78 Alkaline Phosphatase 110 U/L Normal 45-117 Laboratory 05/26/2019 [facility] HCG,Serum NEGATIVE (Negative) 16 test finding [address] (Qualitative) [place] [address] [phone] 1 29 WEEKS FELL HARD ON ICE ON BELLY 2 URINE, CLEAN CATCH 3 10,000 - 50,000 CFU/mL 4 L30.0 5 Vitamin D deficiency has been defined by the [place] of [employer] and an Endocrine Society practice guideline as a level of serum 25-OH vitamin D less than 20 ng/mL (1,2). The Endocrine Society went on to further define vitamin D insufficiency as a level between 21 and 29 ng/mL (2). 1. IOM ([place] of [employer]). 2010. Dietary reference intakes for calcium and D. [place]: The National Academies Press. 2. Amadeo MF, [place], Aniya-Panda HERNANDEZ, et al. Evaluation, treatment, and prevention of vitamin D deficiency: an Endocrine Society clinical practice guideline. JCEM. 2010; 96(7):1911-30. Performed at: RN - [facility] [address] [id number] Miniature Set Constructor: Jaci Wood MD, Phone: [phone] 6 10 WKS PREG, ONGOING VOMITING 7 URINE, CLEAN CATCH 8 Note: Persistent reduction for 3 months or more in an eGFR <60 mL/min/1.73 m2 defines CKD. Patients with eGFR values >/=60 mL/min/1.73 m2 may also have CKD if evidence of persistent proteinuria is present. The original MDRD equation for estimated GFR is not valid for patients less than 18 years of age. Additional information may be found at www.kdoqi.org. 9 Z72.51 10 Negative: HCV RNA Not Detected Performed at: [facility] [id number] Miniature Set Constructor: Brigid Pedroza MD, Phone: [phone] 11 Performed at: [facility] [id number] Miniature Set Constructor: Jaci Wood MD, Phone: [phone] 12 A negative result for either C. trachomatis and/or N. gonorrhoeae does not preclued an infection because results are dependent on adequate specimen collection, absence of inhibitors, and sufficient DNA to be detected. 13 Performed at: [facility] [id number] Miniature Set Constructor: Brigid Pedroza MD, Phone: [phone] 14 REST DISTRESS 15 Note: Persistent reduction for 3 months or more in an eGFR <60 mL/min/1.73 m2 defines CKD. Patients with eGFR values >/=60 mL/min/1.73 m2 may also have CKD if evidence of persistent proteinuria is present. The original MDRD equation for estimated GFR is not valid for patients less than 18 years of age. Additional information may be found at www.kdoqi.org. 16 Method: Quidel QuickVue One-Step Immunoassay Procedures Date Code Description Status 06/13/2019 35122 Brief Emotional/Behav Assessment W/ Scoring Doc Per Completed Standard Inst 06/13/2019 79745 Collection Of Capillary Blood Specimen Completed 06/09/2019 98749 Bronchospasm Provocation Evaluation Multi Spirometric Completed Determinati 06/09/2019 35926 Spirometry Completed 05/01/2017 52990451 Colonoscopy Completed Medical Devices Description No Information Available Encounters Type Date Location Provider Dx Diagnosis Office Visit 10/30/2019 Walk [facility] Simon Boyce31.2 Chronic pharyngitis 2:45p Margi M., ADVERTISING SUPERVISOR J02.9 Acute pharyngitis, unspecified J45.30 Mild persistent asthma, uncomplicated Office Visit 10/07/2019 11:00a Primary Care Angelina Chawla, Z33.1 state, Office MS, ADVERTISING SUPERVISOR-C, CNM incidental L21.9 Seborrheic dermatitis, unspecified E55.9 Vitamin D deficiency, unspecified J45.909 Unspecified asthma, uncomplicated F33.1 Major depressive disorder, recurrent, moderate J02.9 Acute pharyngitis, unspecified R82.998 Other abnormal findings in urine Office 06/20/2019 Pulmonology Nuno, J45.909 Unspecified Visit 2:00p MD Dionicio asthma, uncomplicated Office 06/13/2019 Primary Care Suly Duran J45.909 Unspecified Visit 10:30a Office [facility]WOT [place] asthma, uncomplicated F33.1 Major depressive disorder, recurrent, moderate L30.0 Nummular dermatitis Z72.51 High risk heterosexual behavior Z32.02 Encounter for test, result negative R63.5 Abnormal weight gain Office Visit 06/06/2019 Pulmonology Nuno, J45.909 Unspecified 1:00p MD Dionicio asthma, uncomplicated Assessments Date Code Description Provider 10/30/2019 J31.2 Chronic pharyngitis Margi Boyce, ADVERTISING SUPERVISOR 10/30/2019 J02.9 Acute pharyngitis, unspecified Margi Boyce, ADVERTISING SUPERVISOR 10/30/2019 J45.30 Mild persistent asthma, Charles-Margi Gasca, ADVERTISING SUPERVISOR uncomplicated 10/07/2019 Z33.1 state, incidental GagAngelina giron, MS, ADVERTISING SUPERVISOR-C, CNM 10/07/2019 L21.9 Seborrheic dermatitis, unspecified Gagen, Angelina, MS, ADVERTISING SUPERVISOR-C, CNM 10/07/2019 E55.9 Vitamin D deficiency, unspecified Gagen, Angelina, MS, ADVERTISING SUPERVISOR-C, CNM 10/07/2019 J45.909 Unspecified asthma, uncomplicated Gagen, Angelina, MS, ADVERTISING SUPERVISOR-C, CNM 10/07/2019 F33.1 Major depressive disorder, Gagen, Angelina, MS, ADVERTISING SUPERVISOR-C, recurrent, moderate CNM 10/07/2019 J02.9 Acute pharyngitis, unspecified Susie Chawlaline, MS, ADVERTISING SUPERVISOR-C , CNM 10/07/2019 R82.998 Other abnormal findings in urine Angelina Chawla, MS, ADVERTISING SUPERVISOR-C, CNM 10/02/2019 Z33.1 state, incidental Angelina Chawla, MS, ADVERTISING SUPERVISOR-C, CNM 10/02/2019 E55.9 Vitamin D deficiency, unspecified Susie Chawlaline, MS, ADVERTISING SUPERVISOR-C, CNM 10/02/2019 J45.909 Unspecified asthma, uncomplicated Angelina Chawla, MS, ADVERTISING SUPERVISOR-C, CNM 10/02/2019 F33.1 Major depressive disorder, Angelina Chawla, MS, ADVERTISING SUPERVISOR-C, recurrent, moderate CNM 10/02/2019 R82.998 Other abnormal findings in urine Angelina Chawla, MS, ADVERTISING SUPERVISOR-C, CNM 09/09/2019 Z00.00 Encounter for general adult medical Angelina Chawla, MS , ADVERTISING SUPERVISOR-C, examination without abnormal CNM findings 09/09/2019 Z23 Encounter for immunization Angelina Chawla, MS, ADVERTISING SUPERVISOR-C, CNM 09/09/2019 F33.1 Major depressive disorder, Susie Chawlaline, MS, ADVERTISING SUPERVISOR-C, recurrent, moderate CNM 09/09/2019 J45.909 Asthma without status asthmaticus Denton, Angelina, MS, ADVERTISING SUPERVISOR-C, CNM 09/09/2019 L30.0 Nummular dermatitis Gagen, Angelina, MS, ADVERTISING SUPERVISOR-C, CNM 09/09/2019 Z72.51 High risk heterosexual behavior Susie Chawlaline, MS, ADVERTISING SUPERVISOR -C, CNM 08/13/2019 J45.909 Asthma without status asthmaticus Denton, Angelina, MS, ADVERTISING SUPERVISOR-C, CNM 08/13/2019 F33.1 Major depressive disorder, Saidaen, Angelina, MS, ADVERTISING SUPERVISOR-C, recurrent, moderate CNM 08/13/2019 L30.0 Nummular dermatitis Gagen, Angelina, , ADVERTISING SUPERVISOR-C, CNM 08/13/2019 Z72.51 High risk heterosexual behavior Angelina Chawla, , ADVERTISING SUPERVISOR -C, CNM 08/13/2019 H60.8x1 Other otitis externa, right ear Angelina Chawla, , ADVERTISING SUPERVISOR-C, CNM 08/13/2019 J06.9 Acute upper respiratory infection, Angelina Chawla, MS, ADVERTISING SUPERVISOR-C, unspecified CNM 08/13/2019 Z33.3 Angelina Chawla, , ADVERTISING SUPERVISOR-C, CNM 06/20/2019 J45.909 Asthma without status asthmaticus Dionicio Reina MD 06/13/2019 J45.909 Asthma without status asthmaticus Suly Duran PA 06/13/2019 F33.1 Major depressive disorder, Suly Duran PA recurrent, moderate 06/13/2019 L30.0 Nummular dermatitis Suly Duran PA 06/13/2019 Z72.51 High risk heterosexual behavior Suly Duran PA 06/13/2019 Z32.02 Encounter for test, Suly Duran PA result negative 06/13/2019 R63.5 Abnormal weight gain Suly Duran PA 06/09/2019 J45.909 Asthma without status asthmaticus Dionicio Reina MD 06/06/2019 J45.909 Asthma without status asthmaticus Dionicio Reina MD 05/27/2019 R06.03 Acute respiratory distress Sandra Schaefer M.D. 05/27/2019 R00.0 Tachycardia, unspecified Sandra Schaefer M.D. 05/27/2019 R07.89 Other chest pain Sandra Schaefer M.D. 05/27/2019 R05 Cough Sandra Schaefer M.D. 05/26/2019 J45.901 Unspecified asthma with (acute) Raad Metzger MD exacerbation Plan of Treatment Future Appointment(s):04/06/2020 10:30 am - [place] Angelina, MS, ADVERTISING SUPERVISOR-C, CNM at [id number]/30/2019 - [place] Margi SotomayorWing, FNPJ31.2 Chronic pharyngitisComments:You are limited on what you can take due to , use warm salt water gargles, Tylenol as directed, drink plenty of fluids. I will place a referral to see Dr Boyle who can look into the throat to possible see any abnormalities, he can also perform a sleep study if needed. If symptoms worsen you can always go to the ED in the meantime.Referral:Perfecto Boyle MD, [id number] Acute pharyngitis, unspecifiedNew Labs:Rapid Group A Strep, Ordered: 10/30/19J45.30 Mild persistent asthma, uncomplicatedNew Medication:Ventolin HFA 108(90 Base) mcg/Act - take 2 puffs every 6 hours as needed for shortness of breath. Functional Status Description No Information Available Mental Status Description No Information Available Referrals Refer to Reason for Referral Status Appt Date Perfecto Boyle MD Created [address] [place] [id number] [phone] Perfecto Boyle MD referral for sleep study to rule out sleep apnea Closed Patient no showed to appointment on 06/09/[address] [place] [phone]
[2019-11-08 14:31] VITALS: BP 123/66
[2019-11-08 15:11] LABS: Influenza A Molecular Negative (Negative); Influenza B Molecular Negative (Negative)
--- NOTE | 2019-11-08 15:13 | UC ---
Respiratory Complaint HPI - HPI Summary HPI Summary: Sore throat, hoarse voice, nose bleeds, headache, vomitng x1 day, coughing x2 weeks. Pt is 23 weeks . Last used albuterol yesterday. None today. - History of Current Complaint Chief Complaint: UCGeneralIllness Stated Complaint: FLU LIKE SYMP Time Seen by Provider: 11/08/19 14:54 Hx Obtained From: Patient Hx Last Menstrual Period: "two weeks ago" Pain Intensity: 5 Associated Signs And Symptoms: Positive: URI. Negative: Dyspnea, Fever, Pleuritic Chest Pain, Wheezing, Calf Pain, Calf Swelling - Allergies/Home Medications Allergies/Adverse Reactions: Allergies Allergy/AdvReac Type Severity Reaction Status Date / Time amoxicillin Allergy Rash Verified 11/08/19 14:25 azithromycin Allergy Rash Verified 11/08/19 14:25 bacitracin Allergy Rash Verified 11/08/19 14:25 erythromycin base Allergy Difficulty Verified 11/08/19 14:25 Breathing latex Allergy Hives Verified 11/08/19 14:25 Home Medications: Home Medications Albuterol HFA INHALER* [Ventolin HFA Inhaler*] 2 puff INH Q4H PRN 08/09/19 [ History Confirmed 11/08/19] Pnv No.95/Ferrous Fum/Folic AC [ Tablet] 1 tab PO DAILY 08/09/19 [ History Confirmed 11/08/19] Acetaminophen [Tylenol] 2 tab PO ONCE 11/08/19 [History Confirmed 11/08/19] Albuterol 2.5MG/3ML (0.083%)* [Ventolin 2.5 MG/3 ML NEB.ROMINA*] 2.5 mg INH Q4H PRN #1 cher 11/08/19 [Rx] Albuterol HFA INHALER* [Ventolin HFA Inhaler*] 2 puff INH Q4H PRN #1 mdi [Rx] FLUoxetine CAP* [PROzac CAP*] 20 mg PO DAILY 11/08/19 [History Confirmed ] predniSONE [Prednisone 20 MG TAB] 20 mg PO DAILY 3 Days #3 tablet 11/08/19 [Rx] PMH/Surg Hx/FS Hx/Imm Hx - Additional Past Medical History Additional PMH: CURRENTLY APPROX 23 WKS . Previously Healthy: Yes Respiratory History: Asthma - Surgical History Surgical History: Yes Surgery Procedure, Year, and Place: Colonoscopy, Endoscopy, [place] Teeth Extracted - Family History Known Family History: Positive: Cardiac Disease, Hypertension, Diabetes, Other - No throat related family history. - Social History Alcohol Use: None Substance Use Type: None Smoking Status (MU): Never Smoked Tobacco Have You Smoked in the Last Year: No Household Exposure Type: Cigarettes - Immunization History Most Recent Tetanus Shot: 2 months ago Vaccination Up to Date: Yes Review of Systems All Other Systems Reviewed And Are Negative: Yes Constitutional: Negative: Fever, Chills, Fatigue ENT: Positive: Sore Throat, Nasal Discharge - assoc. w/ nosebleeds, Sinus Congestion, Other - hoarseness Respiratory: Positive: Cough - x2wks, Other - occasional blood in sputum. Negative: Shortness Of Breath Gastrointestinal: Positive: Vomiting - x1 Physical Exam Triage Information Reviewed: Yes Appearance: Well-Appearing Vital Signs: Initial Vital Signs Temp 98 F 11/08/19 14:26 Pulse 116 11/08/19 14:26 Resp 17 11/08/19 14:26 BP 123/66 11/08/19 14:26 Pulse Ox 100 11/08/19 14:26 Vital Signs Reviewed: Yes Eyes: Positive: Conjunctiva Clear Respiratory: Positive: No accessory muscle use, Rhonchi. Negative: Decreased breath sounds, Crackles, Stridor, Wheezing Cardiovascular Exam: Normal Neurological: Positive: Alert Skin: Negative: Rashes Respiratory Course/Dx - Course Course Of Treatment: pt. with signs of a viral illness and mild asthma exacerbation. after further questioning she lives in a house with someone who smokes INDOORS. we discussed these risks. her symptoms greatly improved after albuterol neb tx. good O2. the blood in sputum is likely from her old nosebleeds which are likely from the dryness/and constant nose blowing. rapid flu and strep NEG. - Differential Dx/Diagnosis Differential Diagnosis/HQI/PQRI: Asthma, Bronchitis, Other Provider Diagnosis: Asthma affecting in second trimester Discharge ED - Sign-Out/Discharge Documenting (check all that apply): Patient Departure All imaging exams completed and their final reports reviewed: No Studies - Discharge Plan Condition: Good Disposition: HOME Prescriptions: Albuterol 2.5MG/3ML (0.083%)* [Ventolin 2.5 MG/3 ML NEB.ROMINA*] 2.5 mg INH Q4H PRN #1 cher PRN Reason: Wheezing Albuterol HFA INHALER* [Ventolin HFA Inhaler*] 2 puff INH Q4H PRN #1 mdi PRN Reason: Wheezing predniSONE [Prednisone 20 MG TAB] 20 mg PO DAILY 3 Days #3 tablet Patient Education Materials: Bronchospasm (ED) Referrals: Katia Boyer MD [Primary Care Provider] - Additional Instructions: If worsening please go to emergency room. - Billing Disposition and Condition Condition: GOOD Disposition: Home - Attestation Statements Provider Attestation: I was available for consult. This patient was seen by the MATT. The patient was not presented to , seen by or examined by ri -Roya Ramirez MD
[2019-11-08] MEDS ORDERED: Albuterol 2.5 MG/3 ML NEB.SOL* (0.083%) INH ONE (15:19)
== END 2019-11-08 16:02 | disposition home or self-care (01) ==
LOC: UCCORT 14:09
DX: O99.512 Diseases of the respiratory system complicating pregnancy, second trimester (principal); J45.909 Unspecified asthma, uncomplicated; J02.9 Acute pharyngitis, unspecified; Z3A.23 23 weeks gestation of pregnancy; Z88.0 Allergy status to penicillin; Z88.1 Allergy status to other antibiotic agents; Z91.040 Latex allergy status
CPT/HCPCS: 87651; 99212; G0463